=== PATIENT | male | born 1950 | race Caucasian/White ===

== ENCOUNTER 2018-01-16 13:49 | Inpatient (IN) ==
[2018-01-16] MEDS ORDERED: Etomidate Inj 40 MG/20 ML Vial IV.PUSH ONE (13:54)
[2018-01-16] MEDS ORDERED: fentaNYL Citrate Inj 100 MCG/2 ML Ampul ONE ×3 (13:54→16:51)
[2018-01-16] MEDS ORDERED: ceFAZolin 2 GM Premix Inj 2 GM/50 ML PIGGYBACK IV.SIG ONE (13:54)
[2018-01-16 14:18] LABS: Baso % (Auto) 0.3 % (0.0-2.0); Eos # (Auto) 0.1 th/mm3 (0.0-0.4); Eos % (Auto) 0.8 % (0.0-4.0); Hematocrit 41.9 % (39.0-51.0); Hemoglobin 15.4 gm/dL (13.0-17.0); Lymph # (Auto) 3.1 th/mm3 (1.0-4.8); Mean Corpuscular Hemoglobin 32.3 pg (27.0-34.0); Mean Corpuscular Volume 87.9 fL (80.0-100.0); Mean Platelet Volume 8.5 fL (7.0-11.0); Mono # (Auto) 0.7 th/mm3 (0.0-0.9); Mono % (Auto) 5.9 % (0.0-8.0); Neut # (Auto) 7.2 th/mm3 (1.8-7.7); Platelet Count 297 th/mm3 (150-450); Red Blood Count 4.77 mil/mm3 (4.50-5.90); Red Cell Distribution Width 13.2 % (11.6-17.2); White Blood Count 11.1 th/mm3 (4.0-11.0)
[2018-01-16 14:19] LABS: Mean Corpuscular HGB Conc 36.7 % (32.0-36.0)
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
[2018-01-16 14:24] LABS: Activated Partial Thrombo Time 22.5 sec (24.3-30.1); Prothrombin Time 10.4 sec (9.8-11.6)
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
[2018-01-16] MEDS ORDERED: Succinylcholine Inj 200 MG/10 ML Vial ONE (14:34)
[2018-01-16] MEDS ORDERED: TETANUS IMMUNE GLOBULIN IM ONE (14:40)
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
[2018-01-16 14:44] LABS: Platelet Estimate Normal (Normal); Platelet Morphology Normal (Normal); RBC Morphology Normal (Normal)
[2018-01-16] MEDS ORDERED: Propofol 1000 mg/100 ml Inj 1,000 MG/100 ML BOTTLE ONE (14:45)
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
[2018-01-16] MEDS ORDERED: Etomidate Inj 20 MG/10 ML Ampul IV.PUSH ONE (14:51)
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
[2018-01-16] MEDS ORDERED: Bisacodyl 10 MG Supp RECTAL PRN (15:15)
[2018-01-16] MEDS ORDERED: Acetaminophen 325 MG Tablet PO PRN (15:15)
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
[2018-01-16] MEDS ORDERED: Sodium Chloride 0.9% 2 ML Flush PRN IV.FLUSH (16:01)
[2018-01-16] MEDS ORDERED: Sodium Bicarbonate 8.4% Inj 50 MEQ/50 ML Syringe ONE (16:08)
[2018-01-16 16:10] LABS: ABG Base Excess -5.3 mmol/L (-2-2); ABG PCO2 59 mmHg (38-42); ABG PO2 127 mmHg (61-120)
--- NOTE | 2018-01-16 16:44 | P.OP ---
Preoperative Diagnosis: multitrauma,left pneumothorax Postoperative Diagnosis: multitrauma,left pneumothorax Date of procedure: 01/16/18 Procedure: Left chest tube thoracostomy Anesthesia: other (propofol/fentanyl) Surgeon: Patt Herman MD Operation and Findings: Patient's left chest prepped and draped.5 ICR midaxillary line incision was performed carried out through subcutaneous tissue to superior margin of the rib.Pleural space was entered and lung palpated.[address] was inserted and secured to skin with 0-silk.Patient tolerated procedure well.CXR confirms good position.
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
[2018-01-16] MEDS ORDERED: Gelatin Size 100 Topical Foam OTHER ONE (17:00)
--- NOTE | 2018-01-16 17:22 | P.RAD ---
Post Procedure Progress Note - Pre Procedure Diagnosis (1) Trauma - Post Procedure Diagnosis (1) Trauma - Procedure Information Procedure Date: 01/16/18 Supervising Radiologist: Isidoro Garcia MD Anesthesia: General - Plan of Activity Patient to Unit: Critical Care Patient Condition: Critical See PACS Report for procedural detail/treatment. Vascular - Arterial Procedure right Abdominal Procedure: Embolization (embolize with gelfoam two lumbar arteries renal artery normal)
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
[2018-01-16] MEDS: Sod Chloride 0.9% Inj 1,000 ML IV.CONT SCH (17:37)
[2018-01-16] MEDS: Oral Hygiene Kit OROPHARYNG SCH (17:38)
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
[2018-01-16] MEDS: fentaNYL 10 mcg/mL Premix Drip 2,500 MCG/250 ML BAG IV.SIG PRN (18:45)
[2018-01-16] MEDS ORDERED: Propofol Inj 500 MG/50 ML Vial ONE (19:00)
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
[2018-01-16 19:13] LABS: ABG Base Excess -1.8 mmol/L (-2-2); ABG PCO2 53 mmHg (38-42); ABG PO2 100 mmHg (61-120)
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
[2018-01-16 19:46] LABS: Hematocrit 40.2 % (39.0-51.0); Hemoglobin 13.8 gm/dL (13.0-17.0); Mean Corpuscular HGB Conc 34.4 % (32.0-36.0); Mean Corpuscular Hemoglobin 29.9 pg (27.0-34.0); Mean Platelet Volume 8.1 fL (7.0-11.0); Platelet Count 124 th/mm3 (150-450); Red Blood Count 4.61 mil/mm3 (4.50-5.90); Red Cell Distribution Width 15.3 % (11.6-17.2); White Blood Count 10.2 th/mm3 (4.0-11.0)
[2018-01-16 20:03] LABS: INR 1.1 Ratio
[2018-01-16 20:11] LABS: Calcium 6.7 mg/dL (8.5-10.1); Carbon Dioxide 26.5 meq/L (21.0-32.0); Potassium 4.3 meq/L (3.5-5.1)
[2018-01-16] MEDS: Chlorhexidine 0.12% Oral Kit 15 ML UDC OROPHARYNG SCH (20:15)
[2018-01-16] MEDS: Propofol 1000 mg/100 ml Inj 1,000 MG/100 ML BOTTLE IV.CONT PRN ×2 (20:19→20:30)
[2018-01-16 20:35] LABS: Total Protein 5.7 g/dL (6.4-8.2)
[2018-01-16] MEDS ORDERED: Famotidine PF Inj 20 MG/2 ML Vial IV.PUSH SCH (21:00)
[2018-01-16] MEDS ORDERED: Influenza (Quadrivalent) Vaccine 0.5 ML Syringe IM ONE (21:15)
[2018-01-16] MEDS ORDERED: Sodium Phosphate Inj 30 MMOL in Sodium Chlor 0.9% Inj 250 ML IV.SIG PRN (21:46)
[2018-01-16] MEDS ORDERED: Magnesium Sulfate Inj 4 GM in Sodium Chlor 0.9% Inj 92 ML IV.SIG PRN (21:46)
[2018-01-16] MEDS ORDERED: Magnesium Oxide 400 MG Tablet PO PRN (21:46)
[2018-01-16] MEDS ORDERED: Potassium Chlor 40 mEq Premix 40 MEQ/100 ML PIGGYBACK IV.SIG PRN (21:46)
[2018-01-16] MEDS ORDERED: Potassium Chloride 25 MEQ Effervescent Tablet PO PRN (21:46)
[2018-01-16] MEDS ORDERED: Potassium Phosphate Inj 30 MMOL in Sodium Chlor 0.9% Inj 250 ML IV.SIG PRN (21:46)
[2018-01-16] MEDS ORDERED: Potassium Chlor 20 mEq Premix 20 MEQ/100 ML PIGGYBACK IV.SIG PRN ×2 (21:46)
[2018-01-16] MEDS ORDERED: Potassium Phosphate 500 MG Soluble Tablet PO PRN ×2 (21:46)
[2018-01-16] MEDS ORDERED: Magnesium Sulfate Inj 2 GM in Sodium Chlor 0.9% Inj 96 ML IV.SIG PRN (21:46)
[2018-01-16] MEDS: Famotidine PF Inj 20 MG/2 ML Vial IV.PUSH SCH (21:51)
[2018-01-16] MEDS: Senna/Docusate Sodium 8.6/50 MG Tablet PO SCH (21:51)
[2018-01-16] MEDS ORDERED: Calcium Gluconate Inj 1 GM in Sodium Chlor 0.9% Inj 100 ML IV.SIG ONE (22:00)
--- NOTE | 2018-01-16 23:59 | IR ---
EXAM DATE: 01/16/2018 12:00 AM EDT AGE/SEX: 89 years / Male INDICATIONS: Patient presents as emergent trauma in need of lumbar artery embolization. CLINICAL DATA: This is the patient's initial encounter. Patient reports that signs and symptoms have been present for 1 day and indicates a pain score of Nonresponsive. MEDICAL/SURGICAL HISTORY: Unable to obtain Unable to obtain COMPARISON: No prior exams available for comparison. FLUORO TIME (min): 16.5 IMAGE SERIES: 15 ACCESS SITE: Right femoral artery SEDATION TIME (min): 30 CONTRAST (cc): 75cc Visipaque (iodixanol) MEDICATION(S): 100mcg fentanyl (Sublimaze) IV ; ; ; ; DEVICE(S): spinal artery Gelfoam 12-7mm lumbar artery ; spinal artery Gelfoam 12-7mm lumbar artery ; Right commo n femoral artery Angio-Seal 6F ; ; ; ; . . PROCEDURE : 1. Ultrasound-guided puncture of the access site. 2. Conscious sedation with continuous EKG and Oximetry monitoring. 3. Angiography of the abdominal aorta 4. Angiography of the right renal artery 5. Angiography of the right lumbar artery L1 6. Angiography of the right lumbar lumbar artery L2 with Gelfoam embolization 7. Angiography of the right lumbar artery L3 with Gelfoam embolization The risks, benefits and alternatives to the procedure were explained and verbal and written consent w as obtained. The site was prepped in sterile fashion. Full sterile technique was used, including ca p, mask, sterile gloves and gown and a large sterile sheet. Hand hygiene and 2% chlorhexidine and/or betadine/alcohol prep was utilized per protocol for cutaneous antisepsis. Sterile gel and sterile p robe cover were utilized for ultrasound guidance. The skin and subcutaneous tissues were infiltrated with local anesthetic solution. With ultrasound and fluoroscopic guidance the selected artery was punctured and a vascular sheath was placed. An Omni flush catheter was placed, the abdominal aorta and digital angiography was performed in AP pr ojection. This demonstrates questionable abnormality involving a lumbar artery on the right. The cath eter was exchanged for a Cook catheter and angiography of the L2 lumbar artery demonstrates an abnorm al area of pooling. Subsequent embolization was performed using Gelfoam to complete stasis. Following this the right L3 lumbar artery was also catheterized with additional area of pooling identified. Ag ain embolization was performed to complete stasis. The right renal artery was next catheterized and t his demonstrates no abnormality with normal arterial and venous phase. Finally the right L1 lumbar ar zahida was catheterized demonstrating no abnormality. The puncture site was closed with manual pressure and hemostasis was obtained. The patient tolerated the procedure well and there were no complications. Conscious sedation was performed with the prescribed dosages and duration as above in the presence of an independent trained radiology nurse to assist in the monitoring of the patient. EKG and oximetry remained stable throughout the procedure. CONCLUSION: 1. Uncomplicated embolization of lumbar arteries as described above. No solid organ injury is identi fied. Electronically signed by: Isidoro Garcia MD 01/16/2018 11:57 PM EDT
[2018-01-17] MEDS: Propofol 1000 mg/100 ml Inj 1,000 MG/100 ML BOTTLE IV.CONT PRN ×6 (00:15→21:23)
[2018-01-17] MEDS: Oral Hygiene Kit OROPHARYNG SCH ×5 (01:08→23:15)
[2018-01-17] MEDS: Sod Chloride 0.9% Inj 1,000 ML IV.CONT SCH ×5 (01:08→21:23)
--- NOTE | 2018-01-17 03:29 | XR ---
EXAM DATE: 01/17/2018 12:01 AM EDT AGE/SEX: 89 years / Male INDICATIONS: Shortness of breath, possible pulmonary disease. CLINICAL DATA: This is the patient's subsequent encounter. Patient reports that signs and symptoms h ave been present for 2 days and indicates a pain score of Nonresponsive. MEDICAL/SURGICAL HISTORY: Non-responsive. Non-responsive. COMPARISON: [facility], CHEST 1V SINGLE AP, 01/16/2018. . FINDINGS: The cardiac silhouette is enlarged in transverse diameter. Support lines and tubes are in satisfactor y position. There is no evidence of pneumothorax. There is left lower lobe atelectasis versus contusi on. There is subcutaneous emphysema along the left lateral chest wall. CONCLUSION: Left basilar atelectasis versus contusion. There is no evidence of pneumothorax. Electronically signed by: Isidoro Garcia MD 01/17/2018 3:28 AM EDT
[2018-01-17] MEDS ORDERED: Chlorhexidine Gluconate 2% 1 Pack (2 Cloths) TOPICAL PRN (04:00)
[2018-01-17] MEDS: Chlorhexidine Gluconate 2% 1 Pack (2 Cloths) TOPICAL SCH (04:25)
[2018-01-17 04:31] LABS: Baso % (Auto) 0.3 % (0.0-2.0); Eos % (Auto) 0.5 % (0.0-4.0); Hematocrit 35.3 % (39.0-51.0); Hemoglobin 12.4 gm/dL (13.0-17.0); Lymph # (Auto) 1.1 th/mm3 (1.0-4.8); Mean Corpuscular HGB Conc 35.1 % (32.0-36.0); Mean Corpuscular Hemoglobin 30.1 pg (27.0-34.0); Mean Corpuscular Volume 85.7 fL (80.0-100.0); Mean Platelet Volume 8.1 fL (7.0-11.0); Mono # (Auto) 0.9 th/mm3 (0.0-0.9); Mono % (Auto) 13.1 % (0.0-8.0); Neut # (Auto) 4.7 th/mm3 (1.8-7.7); Neut % (Auto) 69.1 % (16.0-70.0); Platelet Count 117 th/mm3 (150-450); Red Blood Count 4.12 mil/mm3 (4.50-5.90); Red Cell Distribution Width 15.5 % (11.6-17.2); White Blood Count 6.7 th/mm3 (4.0-11.0)
[2018-01-17 04:39] LABS: INR 1.1 Ratio
[2018-01-17 05:00] LABS: Calcium 7.6 mg/dL (8.5-10.1); Carbon Dioxide 25.4 meq/L (21.0-32.0); Magnesium 1.3 mg/dL (1.5-2.5); Potassium 3.3 meq/L (3.5-5.1)
[2018-01-17 05:14] LABS: ABG Base Excess 1.1 mmol/L (-2-2); ABG PCO2 25 mmHg (38-42); ABG PO2 153 mmHg (61-120)
[2018-01-17] MEDS: Potassium Chlor 40 mEq Premix 40 MEQ/100 ML PIGGYBACK IV.SIG PRN (05:15)
[2018-01-17] MEDS ORDERED: Sod Chloride 0.9% Inj 1,000 ML IV.SIG SCH (05:17)
--- NOTE | 2018-01-17 06:22 | P.PNOP ---
Subjective Interval history: Pt required resuscitation yesterday after IR procedure, unstable for OR. Stabilized overnight. Plan to OR this morning Physical Exam Vital signs: Vital Signs 01/16/18 14:44 01/16/18 16:00 01/16/18 17:44 Temperature 98.4 F Pulse Rate 106 H Respiratory Rate 16 22 Blood Pressure 121/57 L Pulse Oximetry 100 100 99 01/16/18 17:45 01/16/18 18:00 01/16/18 19:00 Temperature Pulse Rate 118 H 96 H Respiratory Rate 20 20 22 Blood Pressure 134/78 Pulse Oximetry 100 100 100 01/16/18 20:00 01/16/18 20:29 01/16/18 20:44 Temperature 98.9 F 99.6 F 98.9 F Pulse Rate 81 104 H 79 Respiratory Rate 22 22 22 Blood Pressure Pulse Oximetry 100 100 100 01/16/18 21:00 01/16/18 21:44 01/16/18 22:00 Temperature Pulse Rate 83 73 Respiratory Rate 22 22 22 Blood Pressure Pulse Oximetry 100 100 100 01/16/18 23:00 01/16/18 23:46 01/17/18 00:00 Temperature 99 F Pulse Rate 71 78 Respiratory Rate 22 22 22 Blood Pressure Pulse Oximetry 100 100 100 01/17/18 01:00 01/17/18 02:00 01/17/18 03:00 Temperature Pulse Rate 75 73 70 Respiratory Rate 22 22 22 Blood Pressure Pulse Oximetry 100 100 100 01/17/18 04:00 01/17/18 04:13 Temperature 100.3 F H Pulse Rate 68 Respiratory Rate 22 22 Blood Pressure Pulse Oximetry 100 100 Intake & Output 01/16/18 01/16/18 01/17/18 06:59 18:59 06:59 Intake Total 3314 / 3314 Output Total 1175 / 1175 Balance -1175 / -1175 3314 / 3314 Weight 104.6 kg Intake: IV 2560 / 2560 Diprivan 1000 mg/100 ml Inj 1, 100 / 100 000 mg In 100 ml @ 0 mls/hr . ROUTE .STK-MED ONE Rx#:[id number] Diprivan 1000 mg/100 ml Inj 1, 300 / 300 000 mg In 100 ml @ 5 MCG/KG/MIN 3.138 mls/hr IV.CONT TITRATE PRN Rx#:[id number] NS Inj 1,000 ML @ 100 mls/hr IV 1999 / 1999 .CONT .Q10H FOZIA Rx#:[id number] Calcium Gluconate Inj 1 GM In 110 / 110 NS Inj 100 ML @ 110 mls/hr IV. SIG ONCE ONE Rx#:[id number] Ancef 2 GM Premix Inj 2 gm In 50 / 50 50 ml @ 0 mls/hr IV.SIG .STK- MED ONE Rx#:[id number] Other 100 / 100 Plasma Thawed 5 Day Cp2d Unit 50 / 50 [id number] Plasma Thawed 5 Day Cp2d Unit 50 / 50 [id number] Intake (Blood Product) Amt 654 / 654 Plasma Thawed 5 Day Cp2d Unit 353 / 353 [id number] Plasma Thawed 5 Day Cp2d Unit 301 / 301 [id number] Output: Urine Amount (Catheter) 925 / 925 Indwelling Urethral Catheter 925 / 925 Chest Tube Drainage 250 / 250 Left 250 / 250 Other: # Bowel Movements 0 Weight On Admission 104.6 kg - Urinary Catheter Management Indwelling Urethral Catheter Cath placed during this visit: yes Reason for continuing: Hourly intake/output Insertion date: 01/16/18 Results - Labs CBC & Chem 7: 01/17/18 04:15 01/17/18 04:15 Laboratory Results - last 24 hr 01/16/18 01/16/18 01/16/18 13:53 13:53 13:53 WBC 11.1 H RBC 4.77 Hgb 15.4 POC Hgb (Calc) 14.3 Hct 41.9 POC Hct 42.0 MCV 87.9 MCH 32.3 MCHC 36.7 H RDW 13.2 Plt Count 297 MPV 8.5 Prelim Diff (Auto) Slide review pending Neut % (Auto) 65.0 Lymph % (Auto) 28.0 [place] % (Auto) 5.9 Eos % (Auto) 0.8 Baso % (Auto) 0.3 Neut # (Auto) 7.2 Lymph # (Auto) 3.1 [place] # (Auto) 0.7 Eos # (Auto) 0.1 Baso # (Auto) 0.0 WBC Differential . Diff Scan Auto diff confirmed Differential Comment . Platelet Estimate Normal Platelet Morphology Normal RBC Morphology Normal PT 10.4 INR 1.0 APTT 22.5 L Fibrinogen Puncture Site Patient Temperature O2 Saturation ABG pH ABG pCO2 ABG pO2 ABG HCO3 ABG O2 Content ABG Base Excess ABG Methemoglobin Efra Test Hemoglobin Carboxyhemoglobin O2 Delivery Device Vent Setting Inspired O2 Critical Value POC Sodium 140 Sodium POC Potassium 4.6 Potassium POC Chloride 102 Chloride Carbon Dioxide Anion Gap POC BUN 21 BUN Creatinine POC Creatinine 1.2 Estimated GFR POC Glucose 162 H Random Glucose Calcium Prot Corrected Calcium Phosphorus Magnesium Total Protein Nasal Screen MRSA (PCR) Blood Type Antibody Screen MTS Gel Crossmatch Blood Bank Comment Bld Prod Order Comment 01/16/18 01/16/18 01/16/18 14:36 14:36 14:36 WBC RBC Hgb POC Hgb (Calc) Hct POC Hct MCV MCH MCHC RDW Plt Count MPV Prelim Diff (Auto) Neut % (Auto) Lymph % (Auto) [place] % (Auto) Eos % (Auto) Baso % (Auto) Neut # (Auto) Lymph # (Auto) [place] # (Auto) Eos # (Auto) Baso # (Auto) WBC Differential Diff Scan Differential Comment Platelet Estimate Platelet Morphology RBC Morphology PT INR APTT Fibrinogen Puncture Site Patient Temperature O2 Saturation ABG pH ABG pCO2 ABG pO2 ABG HCO3 ABG O2 Content ABG Base Excess ABG Methemoglobin Efra Test Hemoglobin Carboxyhemoglobin O2 Delivery Device Vent Setting Inspired O2 Critical Value POC Sodium Sodium POC Potassium Potassium POC Chloride Chloride Carbon Dioxide Anion Gap POC BUN BUN Creatinine POC Creatinine Estimated GFR POC Glucose Random Glucose Calcium Prot Corrected Calcium Phosphorus Magnesium Total Protein Nasal Screen MRSA (PCR) Blood Type O Positive Antibody Screen Negative MTS Gel Crossmatch See Detail See Detail Blood Bank Comment Bld Prod Order Comment 01/16/18 01/16/18 01/16/18 14:36 16:00 16:11 WBC RBC Hgb POC Hgb (Calc) Hct POC Hct MCV MCH MCHC RDW Plt Count MPV Prelim Diff (Auto) Neut % (Auto) Lymph % (Auto) [place] % (Auto) Eos % (Auto) Baso % (Auto) Neut # (Auto) Lymph # (Auto) [place] # (Auto) Eos # (Auto) Baso # (Auto) WBC Differential Diff Scan Differential Comment Platelet Estimate Platelet Morphology RBC Morphology PT INR APTT Fibrinogen Puncture Site Right radial Patient Temperature 98.6 O2 Saturation 96 ABG pH 7.19 L* ABG pCO2 59 H* ABG pO2 127 H ABG HCO3 22 ABG O2 Content 20.1 H ABG Base Excess -5.3 L ABG Methemoglobin 1.2 Efra Test Present Hemoglobin 14.8 Carboxyhemoglobin 0.8 O2 Delivery Device Ventilator Vent Setting Prvc16/500/1.0/+5 Inspired O2 100 Critical Value Yes POC Sodium Sodium POC Potassium Potassium POC Chloride Chloride Carbon Dioxide Anion Gap POC BUN BUN Creatinine POC Creatinine Estimated GFR POC Glucose Random Glucose Calcium Prot Corrected Calcium Phosphorus Magnesium Total Protein Nasal Screen MRSA (PCR) Mrsa detected Blood Type Antibody Screen MTS Gel Crossmatch See Detail Blood Bank Comment Bld Prod Order Comment 01/16/18 01/16/18 01/16/18 17:07 17:09 17:11 WBC RBC Hgb POC Hgb (Calc) Hct POC Hct MCV MCH MCHC RDW Plt Count MPV Prelim Diff (Auto) Neut % (Auto) Lymph % (Auto) [place] % (Auto) Eos % (Auto) Baso % (Auto) Neut # (Auto) Lymph # (Auto) [place] # (Auto) Eos # (Auto) Baso # (Auto) WBC Differential Diff Scan Differential Comment Platelet Estimate Platelet Morphology RBC Morphology PT INR APTT Fibrinogen Puncture Site Patient Temperature O2 Saturation ABG pH ABG pCO2 ABG pO2 ABG HCO3 ABG O2 Content ABG Base Excess ABG Methemoglobin Efra Test Hemoglobin Carboxyhemoglobin O2 Delivery Device Vent Setting Inspired O2 Critical Value POC Sodium Sodium POC Potassium Potassium POC Chloride Chloride Carbon Dioxide Anion Gap POC BUN BUN Creatinine POC Creatinine Estimated GFR POC Glucose Random Glucose Calcium Prot Corrected Calcium Phosphorus Magnesium Total Protein Nasal Screen MRSA (PCR) Blood Type Antibody Screen MTS Gel Crossmatch Blood Bank Comment Bld Prod Order Comment 01/16/18 01/16/18 01/16/18 18:55 19:30 19:30 WBC 10.2 RBC 4.61 Hgb 13.8 POC Hgb (Calc) Hct 40.2 POC Hct MCV 87.0 MCH 29.9 MCHC 34.4 RDW 15.3 Plt Count 124 L D MPV 8.1 Prelim Diff (Auto) Neut % (Auto) Lymph % (Auto) [place] % (Auto) Eos % (Auto) Baso % (Auto) Neut # (Auto) Lymph # (Auto) [place] # (Auto) Eos # (Auto) Baso # (Auto) WBC Differential Diff Scan Differential Comment Platelet Estimate Platelet Morphology RBC Morphology PT INR APTT Fibrinogen Puncture Site Art line Patient Temperature 98.6 O2 Saturation 95 ABG pH 7.28 L* ABG pCO2 53 H* ABG pO2 100 ABG HCO3 24 ABG O2 Content 18.8 ABG Base Excess -1.8 ABG Methemoglobin 1.4 Efra Test Present Hemoglobin 14.0 Carboxyhemoglobin 1.1 O2 Delivery Device Ventilator Vent Setting Prvc20/600/0.9/+7 Inspired O2 100 Critical Value Yes POC Sodium Sodium 144 POC Potassium Potassium 4.3 POC Chloride Chloride 109 H Carbon Dioxide 26.5 Anion Gap 9 POC BUN BUN 21 H Creatinine 1.29 POC Creatinine Estimated GFR 48 L POC Glucose Random Glucose 173 H Calcium 6.7 L* Prot Corrected Calcium 7.4 L* Phosphorus Magnesium Total Protein 5.7 L Nasal Screen MRSA (PCR) Blood Type Antibody Screen MTS Gel [employer] Blood Bank Comment Bld Prod Order Comment 01/16/18 01/16/18 01/16/18 19:30 19:30 19:31 WBC RBC Hgb POC Hgb (Calc) Hct POC Hct MCV MCH MCHC RDW Plt Count MPV Prelim Diff (Auto) Neut % (Auto) Lymph % (Auto) [place] % (Auto) Eos % (Auto) Baso % (Auto) Neut # (Auto) Lymph # (Auto) [place] # (Auto) Eos # (Auto) Baso # (Auto) WBC Differential Diff Scan Differential Comment Platelet Estimate Platelet Morphology RBC Morphology PT 11.0 INR 1.1 APTT Fibrinogen 246 Puncture Site Patient Temperature O2 Saturation ABG pH ABG pCO2 ABG pO2 ABG HCO3 ABG O2 Content ABG Base Excess ABG Methemoglobin Efra Test Hemoglobin Carboxyhemoglobin O2 Delivery Device Vent Setting Inspired O2 Critical Value POC Sodium Sodium POC Potassium Potassium POC Chloride Chloride Carbon Dioxide Anion Gap POC BUN BUN Creatinine POC Creatinine Estimated GFR POC Glucose Random Glucose Calcium Prot Corrected Calcium Phosphorus Magnesium Total Protein Nasal Screen MRSA (PCR) Blood Type Antibody Screen MTS Gel Crossmatch Blood Bank Comment Bld Prod Order Comment 01/17/18 01/17/18 01/17/18 04:15 04:15 04:15 WBC 6.7 RBC 4.12 L Hgb 12.4 L POC Hgb (Calc) Hct 35.3 L POC Hct MCV 85.7 MCH 30.1 MCHC 35.1 RDW 15.5 Plt Count 117 L MPV 8.1 Prelim Diff (Auto) Neut % (Auto) 69.1 Lymph % (Auto) 17.0 [place] % (Auto) 13.1 H Eos % (Auto) 0.5 Baso % (Auto) 0.3 Neut # (Auto) 4.7 Lymph # (Auto) 1.1 [place] # (Auto) 0.9 Eos # (Auto) 0.0 Baso # (Auto) 0.0 WBC Differential . Diff Scan Differential Comment Auto diff final Platelet Estimate Platelet Morphology RBC Morphology PT 11.0 INR 1.1 APTT Fibrinogen Puncture Site Patient Temperature O2 Saturation ABG pH ABG pCO2 ABG pO2 ABG HCO3 ABG O2 Content ABG Base Excess ABG Methemoglobin Efra Test Hemoglobin Carboxyhemoglobin O2 Delivery Device Vent Setting Inspired O2 Critical Value POC Sodium Sodium 145 POC Potassium Potassium 3.3 L D POC Chloride Chloride 109 H Carbon Dioxide 25.4 Anion Gap 11 POC BUN BUN 23 H Creatinine 1.33 H POC Creatinine Estimated GFR 46 L POC Glucose Random Glucose 146 H Calcium 7.6 L D Prot Corrected Calcium Phosphorus 3.0 Magnesium 1.3 L Total Protein Nasal Screen MRSA (PCR) Blood Type Antibody Screen [employer] Blood Bank Comment Bld Prod Order Comment 01/17/18 04:57 WBC RBC Hgb POC Hgb (Calc) Hct POC Hct MCV MCH MCHC RDW Plt Count MPV Prelim Diff (Auto) Neut % (Auto) Lymph % (Auto) [place] % (Auto) Eos % (Auto) Baso % (Auto) Neut # (Auto) Lymph # (Auto) [place] # (Auto) Eos # (Auto) Baso # (Auto) WBC Differential Diff Scan Differential Comment Platelet Estimate Platelet Morphology RBC Morphology PT INR APTT Fibrinogen Puncture Site Josselin Patient Temperature 98.6 O2 Saturation 97 ABG pH 7.58 H* ABG pCO2 25 L ABG pO2 153 H ABG HCO3 23 ABG O2 Content 16.7 ABG Base Excess 1.1 ABG Methemoglobin 1.5 Efra Test Hemoglobin 12.1 Carboxyhemoglobin 1.3 O2 Delivery Device Vent Vent Setting See comments Inspired O2 60 Critical Value Yes POC Sodium Sodium POC Potassium Potassium POC Chloride Chloride Carbon Dioxide Anion Gap POC BUN BUN Creatinine POC Creatinine Estimated GFR POC Glucose Random Glucose Calcium Prot Corrected Calcium Phosphorus Magnesium Total Protein Nasal Screen MRSA (PCR) Blood Type Antibody Screen MTS Gel Crossmatch Blood Bank Comment Bld Prod Order Comment - Imaging Impressions Abdominal Angiography 01/16/18 00:00 CONCLUSION: 1. Uncomplicated embolization of lumbar arteries as described above. No solid organ injury is identified. Ankle X-Ray 01/16/18 00:00 CONCLUSION: Tibiotalar dislocation with fracture as above. Chest X-Ray 01/16/18 00:00 CONCLUSION: Large bore chest tube in place on the left. There is no significant residual pneumothorax. Moderate subcutaneous emphysema is present Mediastinal contours are prominent. CT scan is pending. Foot X-Ray 01/16/18 00:00 CONCLUSION: Fracture dislocations as above. CT scan may be of benefit. Chest X-Ray 01/16/18 13:51 CONCLUSION: 1. Left-sided rib fractures with subcutaneous emphysema in the left chest wall. No gross pneumothorax. 2. Probable left scapular fracture. Pelvis X-Ray 01/16/18 13:51 CONCLUSION: 1. Negative trauma pelvis. Tibia/Fibula X-Ray 01/16/18 13:59 CONCLUSION: 1. Fracture dislocation of the ankle, as above. Abdomen/Pelvis CT 01/16/18 14:16 CONCLUSION: 1. Small right psoas hematoma with focal region of active hemorrhage. Suspect this is a lumbar artery or lumbar vein source. Overall small size of the psoas hematoma would suggest a venous etiology. 2. Nondisplaced 11th right rib and slightly displaced 12th right rib fractures. 3. Redemonstration of multiple left-sided rib fractures. Cervical Spine CT 01/16/18 14:16 CONCLUSION: 1. No acute fracture or subluxation. 2. Partially imaged left apical pneumothorax and left-sided rib fractures. Please see CT chest report for details. 3. Degenerative spondylosis of the cervical spine, as above. Chest CT 01/16/18 14:16 CONCLUSION: 1. Multiple left-sided rib fractures including at least 2 fractures involving the fourth, fifth, seventh, eighth and ninth ribs. 2. Moderate sized left-sided hydropneumothorax with predominantly pneumothorax component. 3. Mild bilateral pulmonary contusions. 4. Suspected left scapular fracture is not demonstrated on CT. Scapula is intact. Head CT 01/16/18 14:17 CONCLUSION: 1. No acute cranial abnormality. 2. Mild right sphenoid sinus mucosal disease. . Chest X-Ray 01/16/18 18:15 CONCLUSION: 1. Stable ETT and NGT. 2. Stable left chest tube without significant pneumothorax. 3. Progressive pleural-parenchymal opacities in the left lower lung zone with progressive volume loss. Chest X-Ray 01/17/18 00:01 CONCLUSION: Left basilar atelectasis versus contusion. There is no evidence of pneumothorax. Assessment and Plan - Assessment and Plan 68-year-old gentleman with open left ankle fracture and subtalar dislocation Full foot XR obtained overnight. Patient with left 1st MTP jt dislocation, multiple MT neck/head fractures. Plan for OR today for I&D, left ankle and foot open vs closed reduction and application of external fixator. Will likely require secondary surgery. Consent obtained from patient's as he remains intubated and sedated.
[2018-01-17] MEDS ORDERED: Dextrose 50% in Water 50 ML Vial IV.PUSH PRN (06:23)
[2018-01-17] MEDS ORDERED: Phenylephrine/NS 1000 MCG/10ML Syringe IV.PUSH ONE (06:37)
[2018-01-17] MEDS ORDERED: Post-op Orders (for Pharmacy) OTHER STA (08:04)
--- NOTE | 2018-01-17 08:04 | P.BOP ---
Date of procedure: 01/17/18 Procedure: 1. Irrigation and debridement left open talar dislocation (tibiotalar, talonavicular and talocalcaneal) 2. Irrigation and debridement left open first metatarsophalangeal fracture and dislocation 3. Irrigation and debridement left open 2nd metatarsal fracture 4. Open reduction left open talar dislocation 5. Open reduction left open 1st metatarsophalangeal fracture and dislocation 6. Application of external fixator left ankle and hindfoot Implants: [employer] ex-fix Anesthesia: GETA Surgeon: Leni Massey MD Estimated blood loss (mL): 50 Pathology: none sent Condition: stable Disposition: ICU
[2018-01-17] MEDS: fentaNYL 10 mcg/mL Premix Drip 2,500 MCG/250 ML BAG IV.SIG PRN (08:45)
--- NOTE | 2018-01-17 08:49 | XR ---
EXAM DATE: 01/17/2018 12:00 AM EDT AGE/SEX: 89 years / Male INDICATIONS: External fixator placement on left ankle. CLINICAL DATA: This is the patient's subsequent encounter. Patient reports that signs and symptoms h ave been present for 1 day and indicates a pain score of Nonresponsive. MEDICAL/SURGICAL HISTORY: Non-responsive. Non-responsive. [place] [facility] [place]. . FINDINGS: 4 fluoroscopic images demonstrate external fixator placement in the hindfoot. There is redemonstratio n of multiple comminuted distal metatarsal fractures. CONCLUSION: 1. External fixator placement, as above. Electronically signed by: Jorge A Lowery MD 01/17/2018 8:47 AM EDT
--- NOTE | 2018-01-17 08:50 | XR ---
EXAM DATE: 01/17/2018 12:00 AM EDT AGE/SEX: 89 years / Male INDICATIONS: Post splint of left foot and ankle. CLINICAL DATA: This is the patient's subsequent encounter. Patient reports that signs and symptoms h ave been present for 1 day and indicates a pain score of Nonresponsive. MEDICAL/SURGICAL HISTORY: Non-responsive. Non-responsive. COMPARISON: [facility], ANKLE LIMITED LEFT 2V, 01/17/2018. . FINDINGS: Single fluoroscopic image demonstrates a moderately displaced fracture of the proximal first phalanx extending through the articular surface. There are also comminuted fractures of the second and third metatarsals distally. CONCLUSION: 1. Fluoroscopic examination, as above. Electronically signed by: Jorge A Lowery MD 01/17/2018 8:48 AM EDT
[2018-01-17] MEDS: Chlorhexidine 0.12% Oral Kit 15 ML UDC OROPHARYNG SCH ×2 (09:03→20:16)
[2018-01-17] MEDS: Senna/Docusate Sodium 8.6/50 MG Tablet PO SCH ×2 (09:11→20:17)
[2018-01-17] MEDS: Famotidine PF Inj 20 MG/2 ML Vial IV.PUSH SCH ×2 (09:11→20:17)
--- NOTE | 2018-01-17 10:36 | CT ---
EXAM DATE: 01/17/2018 8:28 AM EDT AGE/SEX: 89 years / Male INDICATIONS: Trauma, post reduction. CLINICAL DATA: This is the patient's initial encounter. Patient reports that signs and symptoms have been present for 1 day and indicates a pain score of Nonresponsive. MEDICAL/SURGICAL HISTORY: Diabetes. Hypertension. . post reduction RADIATION DOSE: 7.29 CTDI (mGy) COMPARISON: [facility] – [place], CT ANKLE LEFT W/O CONTRAST, 01/17/2018. . TECHNIQUE: Multiple contiguous axial images were acquired using a multirow detector CT scanner witho ut contrast. Multiplanar reconstruction was performed in the sagittal and coronal planes. Using auto mated exposure control and adjustment of the mA and/or kV according to patient size, radiation dose w as kept as low as reasonably achievable to obtain optimal diagnostic quality images. DICOM format im age data is available electronically for review and comparison. FINDINGS: Bones: There is an oblique fracture extending through the base of the proximal first phalanx to the articular surface. There is minimal medial displacement of the fracture fragment with air noted along the fracture plane. Comminuted fracture of the first, second, third, and fourth distal metatarsals w ith air noted in the first metatarsal fracture. There is a severely comminuted fracture of the anteri or and medial calcaneus involving the anterior and middle facets. There is noted throughout the calca keely fracture fragments. There is an external fixation screw coursing through the base of the calcane us. There is subtle cortical irregularity involving the cuboid and medial inferior talus. Joints: There is widening of the talonavicular joint with mild cephalad dislocation of the distal ta amrik with respect to the navicular. Air is noted in the joint space. There is also widening of the med ial talocalcaneal joint space with fracture fragments extending along the medial articular surface. Soft Tissues: Diffuse extensive soft tissue edema and subcutaneous air. Other: No additional foreign bodies. CONCLUSION: 1. Severely comminuted complex fracture of the calcaneus with comminuted fractures of the first thro ugh fourth distal metatarsals and base of the proximal first phalanx. 2. Subtle fractures involving the cuboid and medial inferior talus. 3. Widening of the talonavicular and medial talocalcaneal joints. 4. Calcaneal external fixator in place. Electronically signed by: Jorge A Lowery MD 01/17/2018 10:35 AM EDT
--- NOTE | 2018-01-17 10:44 | CT ---
EXAM DATE: 01/17/2018 8:42 AM EDT AGE/SEX: 89 years / Male INDICATIONS: Trauma, post reduction. CLINICAL DATA: This is the patient's initial encounter. Patient reports that signs and symptoms have been present for 1 day and indicates a pain score of Nonresponsive. MEDICAL/SURGICAL HISTORY: Diabetes. Hypertension. . post reduction left ankle and foot RADIATION DOSE: 7.29 CTDI (mGy) COMPARISON: [facility] – [place], CT FOOT LEFT W/O CONTRAST, 01/17/2018. . TECHNIQUE: Multiple contiguous axial images were acquired using a multirow detector CT scanner witho ut contrast. Multiplanar reconstruction was performed in the sagittal and coronal planes. Using aut omated exposure control and adjustment of the mA and/or kV according to patient size, radiation dose was kept as low as reasonably achievable to obtain optimal diagnostic quality images. DICOM format i mage data is available electronically for review and comparison. FINDINGS: Bones: Comminuted fracture of the distal fibula with fracture fragments noted anteriorly. There is a severely comminuted fracture of the anterior and medial calcaneus involving the anterior and middle facets. Air is noted throughout the calcaneal fracture fragments. Joints: There is slight widening of the tibiotalar joint space. There is also subtle widening of the very distal tibiofibular joint space. Soft Tissues: Diffuse extensive soft tissue edema and subcutaneous air. Other: There is an external fixator coursing through the posterior calcaneus. CONCLUSION: 1. Comminuted fracture of the distal fibula with subtle widening of the tibiotalar and tibiofibular distances. 2. Severely comminuted complex fracture of the calcaneus with comminuted fractures of the first thro ugh fourth distal metatarsals and base of the proximal first phalanx. Please see CT for report for ad ditional details. 3. Calcaneal external fixator in place. CONCLUSION: 1. Electronically signed by: Jorge A Lowery MD 01/17/2018 10:43 AM EDT
[2018-01-17 11:58] LABS: ABG Base Excess 1.7 mmol/L (-2-2); ABG PCO2 33 mmHg (38-42); ABG PO2 72 mmHg (61-120)
--- NOTE | 2018-01-17 14:02 | P.PNCC ---
Subjective Brief History: 68 involved in an [facility] [place]. Patient was overall stable to transfer complaining of pain left lower extremity at the ankle area. On arrival he is in moderate distress he is hemodynamically stable his saturations are in the 90s range on supplemental oxygen he is however diaphoretic with a mild tachypnea he has equal breath sounds bilateral his GCS is 15 he complains of pain at his left lower extremity he has multiple road rashes equal pupils. Under moderate sedation patient's left ankle was attempted to reduce, 2 g of Ancef was given as IV antibiotics patient was brought to the CAT scan. Preliminary initial findings 1. Multiple left-sided rib fractures second to ninth rib left 2. Moderate sized left-sided hydropneumothorax with predominantly pneumothorax component. 3. Mild bilateral pulmonary contusions. 4. Open left ankle fracture Patient was resuscitated according to trauma protocols left chest tube was placed and patient remains on the ventilator Underwent washout and ex-fix of the left ankle by orthopedics 24 Hour Review/Hospital Course: 01/17/2018 Neurologically patient is intact he remains on the ventilator intubated and ventilated sedated Hemodynamically patient is stable Bilateral breath sounds on assist control mode ventilation with improving PO2 FiO2 gradient and decreasing FiO2 requirements Patient has severe lung and chest wall injury with a flail segment of fourth fifth and sixth rib and therefore will require prolonged ventilation and recovery In additions patient's age is aggravating circumstances and the situation Abdomen is soft active bowel sounds and patient will be started on enteral feeds Renal function well-preserved In summary this patient's main problem is pulmonary function and underlying pulmonary contusion and damage to the lung aggravated by severe chest wall contusion will lead to prolonged ventilatory support Objective Vital Signs / I&O: Vital Signs 01/16/18 14:44 01/16/18 16:00 01/16/18 17:44 Temperature 98.4 F Pulse Rate 106 H Respiratory Rate 16 22 Blood Pressure 121/57 L Pulse Oximetry 100 100 99 01/16/18 17:45 01/16/18 18:00 01/16/18 19:00 Temperature Pulse Rate 118 H 96 H Respiratory Rate 20 20 22 Blood Pressure 134/78 Pulse Oximetry 100 100 100 01/16/18 20:00 01/16/18 20:29 01/16/18 20:44 Temperature 98.9 F 99.6 F 98.9 F Pulse Rate 81 104 H 79 Respiratory Rate 22 22 22 Blood Pressure Pulse Oximetry 100 100 100 01/16/18 21:00 01/16/18 21:44 01/16/18 22:00 Temperature Pulse Rate 83 73 Respiratory Rate 22 22 22 Blood Pressure Pulse Oximetry 100 100 100 01/16/18 23:00 01/16/18 23:46 01/17/18 00:00 Temperature 99 F Pulse Rate 71 78 Respiratory Rate 22 22 22 Blood Pressure Pulse Oximetry 100 100 100 01/17/18 01:00 01/17/18 02:00 01/17/18 03:00 Temperature Pulse Rate 75 73 70 Respiratory Rate 22 22 22 Blood Pressure Pulse Oximetry 100 100 100 01/17/18 04:00 01/17/18 04:13 01/17/18 05:00 Temperature 100.3 F H Pulse Rate 68 70 Respiratory Rate 22 22 22 Blood Pressure Pulse Oximetry 100 100 100 01/17/18 06:00 01/17/18 08:15 01/17/18 08:31 Temperature 98 F Pulse Rate 62 68 Respiratory Rate 18 18 18 Blood Pressure 101/54 L Pulse Oximetry 100 100 100 01/17/18 09:00 01/17/18 09:11 01/17/18 10:00 Temperature Pulse Rate 64 64 78 Respiratory Rate 18 19 18 Blood Pressure 135/71 170/60 H Pulse Oximetry 100 98 01/17/18 10:12 01/17/18 11:00 01/17/18 11:21 Temperature Pulse Rate 86 Respiratory Rate 18 18 Blood Pressure Pulse Oximetry 100 100 98 01/17/18 12:00 Temperature 98 F Pulse Rate 68 Respiratory Rate 18 Blood Pressure Pulse Oximetry 99 Intake & Output 01/16/18 01/17/18 01/17/18 18:59 06:59 18:59 Intake Total 4314 / 4314 1650 / 1650 Output Total 1175 / 1175 1250 / 1250 10 Balance -1175 / -1175 3064 / 3064 1640 / 1640 Weight 104.6 kg 109.9 kg Intake: IV 3560 / 3560 650 / 650 Diprivan 1000 mg/100 ml Inj 1, 100 / 100 000 mg In 100 ml @ 0 mls/hr . [facility] Rx#:[id number] Diprivan 1000 mg/100 ml Inj 1, 300 / 300 200 / 200 000 mg In 100 ml @ 5 MCG/KG/MIN 3.138 mls/hr IV.CONT TITRATE PRN Rx#:[id number] NS Inj 1,000 ML @ 100 mls/hr IV 3000 / 3000 .CONT .Q10H FOZIA Rx#:[id number] Calcium Gluconate Inj 1 GM In 110 / 110 NS Inj 100 ML @ 110 mls/hr IV. SIG ONCE ONE Rx#:[id number] Magnesium Sulfate Inj 2 GM In 100 / 100 NS Inj 96 ML @ 50 mls/hr IV.SIG UNSCH PRN Rx#:[id number] KCl 40 mEq Premix Inj 40 meq In 100 / 100 100 ml @ 25 mls/hr IV.SIG UNSCH PRN Rx#:[id number] Ancef 2 GM Premix Inj 2 gm In 50 / 50 50 ml @ 0 mls/hr IV.SIG .STK- [facility] Rx#:[id number] fentaNYL 10 mcg/mL Premix Drip 250 / 250 2,500 mcg In 250 ml @ 50 MCG/HR 5 mls/hr IV.SIG TITRATE PRN Rx #:[id number] Anesthesia Amount 1000 / 1000 Other 100 / 100 Plasma Thawed 5 Day Cp2d Unit 50 / 50 [id number] Plasma Thawed 5 Day Cp2d Unit 50 / 50 [id number] Intake (Blood Product) Amt 654 / 654 Plasma Thawed 5 Day Cp2d Unit 353 / 353 [id number] Plasma Thawed 5 Day Cp2d Unit 301 / 301 [id number] Output: Estimated Blood Loss 10 / 10 Urine Amount (Catheter) 925 / 925 1000 / 1000 Indwelling Urethral Catheter 925 / 925 1000 / 1000 Gastric Drainage 150 / 150 Orogastric Tube 150 / 150 Chest Tube Drainage 250 / 250 100 / 100 Left 250 / 250 100 / 100 Other: # Bowel Movements 0 Weight On Admission 104.6 kg Result Diagrams: 01/17/18 04:15 01/17/18 04:15 Imaging: Impressions Abdominal Angiography 01/16/18 00:00 CONCLUSION: 1. Uncomplicated embolization of lumbar arteries as described above. No solid organ injury is identified. Ankle X-Ray 01/16/18 00:00 CONCLUSION: Tibiotalar dislocation with fracture as above. Chest X-Ray 01/16/18 00:00 CONCLUSION: Large bore chest tube in place on the left. There is no significant residual pneumothorax. Moderate subcutaneous emphysema is present Mediastinal contours are prominent. CT scan is pending. Foot X-Ray 01/16/18 00:00 CONCLUSION: Fracture dislocations as above. CT scan may be of benefit. Chest X-Ray 01/16/18 13:51 CONCLUSION: 1. Left-sided rib fractures with subcutaneous emphysema in the left chest wall. No gross pneumothorax. 2. Probable left scapular fracture. Pelvis X-Ray 01/16/18 13:51 CONCLUSION: 1. Negative trauma pelvis. Tibia/Fibula X-Ray 01/16/18 13:59 CONCLUSION: 1. Fracture dislocation of the ankle, as above. Abdomen/Pelvis CT 01/16/18 14:16 CONCLUSION: 1. Small right psoas hematoma with focal region of active hemorrhage. Suspect this is a lumbar artery or lumbar vein source. Overall small size of the psoas hematoma would suggest a venous etiology. 2. Nondisplaced 11th right rib and slightly displaced 12th right rib fractures. 3. Redemonstration of multiple left-sided rib fractures. Cervical Spine CT 01/16/18 14:16 CONCLUSION: 1. No acute fracture or subluxation. 2. Partially imaged left apical pneumothorax and left-sided rib fractures. Please see CT chest report for details. 3. Degenerative spondylosis of the cervical spine, as above. Chest CT 01/16/18 14:16 CONCLUSION: 1. Multiple left-sided rib fractures including at least 2 fractures involving the fourth, fifth, seventh, eighth and ninth ribs. 2. Moderate sized left-sided hydropneumothorax with predominantly pneumothorax component. 3. Mild bilateral pulmonary contusions. 4. Suspected left scapular fracture is not demonstrated on CT. Scapula is intact. Head CT 01/16/18 14:17 CONCLUSION: 1. No acute cranial abnormality. 2. Mild right sphenoid sinus mucosal disease. . Chest X-Ray 01/16/18 18:15 CONCLUSION: 1. Stable ETT and NGT. 2. Stable left chest tube without significant pneumothorax. 3. Progressive pleural-parenchymal opacities in the left lower lung zone with progressive volume loss. Ankle CT 01/17/18 00:00 CONCLUSION: 1. Comminuted fracture of the distal fibula with subtle widening of the tibiotalar and tibiofibular distances. 2. Severely comminuted complex fracture of the calcaneus with comminuted fractures of the first through fourth distal metatarsals and base of the proximal first phalanx. Please see CT for report for additional details. 3. Calcaneal external fixator in place. CONCLUSION: 1. Ankle X-Ray 01/17/18 00:00 CONCLUSION: 1. External fixator placement, as above. Foot CT 01/17/18 00:00 CONCLUSION: 1. Severely comminuted complex fracture of the calcaneus with comminuted fractures of the first through fourth distal metatarsals and base of the proximal first phalanx. 2. Subtle fractures involving the cuboid and medial inferior talus. 3. Widening of the talonavicular and medial talocalcaneal joints. 4. Calcaneal external fixator in place. Foot X-Ray 01/17/18 00:00 CONCLUSION: 1. Fluoroscopic examination, as above. Chest X-Ray 01/17/18 00:01 CONCLUSION: Left basilar atelectasis versus contusion. There is no evidence of pneumothorax. Disinhibition Score: 14.00 Aggression Score: 14.00 Lability Score: 14.00 Agitated Behavior Total Score: 14 - Exam PROGRAM TRAINER: Neurologically patient is intact he remains on the ventilator intubated and ventilated sedated Hemodynamic/Cardiac: Hemodynamically patient is stable Pulmonary/Respiratory: Bilateral breath sounds on assist control mode ventilation with improving PO2 FiO2 gradient and decreasing FiO2 requirements Patient has severe lung and chest wall injury with a flail segment of fourth fifth and sixth rib and therefore will require prolonged ventilation and recovery In additions patient's age is aggravating circumstances and the situation In summary this patient's main problem is pulmonary function and underlying pulmonary contusion and damage to the lung aggravated by severe chest wall contusion will lead to prolonged ventilatory support Abdomen/GI Nutrition: Abdomen is soft active bowel sounds and patient will be started on enteral feeds Renal/I&O: Renal function well-preserved Assessment and Plan Attestation: Critical care time 36 minutes
--- NOTE | 2018-01-17 16:00 | ECG ---
Date Performed: 01/17/2018 Time Performed: 05:51:02 PTAGE: 89 years EKG: Sinus rhythm . Prolonged QT interval Possible inferior infarct - age undetermined Septal T wave changes are nonspe cific Cannot Rule out ischemia Abnormal ECG NO PREVIOUS TRACING Clinical correlation is recommended DOCTOR: Zak Peter Interpretating Date/Time 01/17/2018 15:58:22
[2018-01-17] MEDS ORDERED: niCARdipine Inj 25 MG in Sodium Chlor 0.9% Inj 240 ML IV.CONT PRN (19:41)
[2018-01-18] MEDS: Propofol 1000 mg/100 ml Inj 1,000 MG/100 ML BOTTLE IV.CONT PRN ×5 (01:37→20:41)
[2018-01-18] MEDS: Sod Chloride 0.9% Inj 1,000 ML IV.CONT SCH ×2 (03:35→20:18)
[2018-01-18] MEDS: Chlorhexidine Gluconate 2% 1 Pack (2 Cloths) TOPICAL SCH (03:35)
[2018-01-18] MEDS: Oral Hygiene Kit OROPHARYNG SCH ×3 (03:35→16:04)
[2018-01-18 04:22] LABS: Baso % (Auto) 0.2 % (0.0-2.0); Eos # (Auto) 0.1 th/mm3 (0.0-0.4); Eos % (Auto) 0.7 % (0.0-4.0); Hemoglobin 11.6 gm/dL (13.0-17.0); Lymph # (Auto) 0.9 th/mm3 (1.0-4.8); Lymph % (Auto) 10.2 % (9.0-44.0); Mean Corpuscular HGB Conc 33.9 % (32.0-36.0); Mean Corpuscular Hemoglobin 29.8 pg (27.0-34.0); Mean Corpuscular Volume 87.8 fL (80.0-100.0); Mean Platelet Volume 8.5 fL (7.0-11.0); Mono # (Auto) 0.7 th/mm3 (0.0-0.9); Mono % (Auto) 7.7 % (0.0-8.0); Neut # (Auto) 7.4 th/mm3 (1.8-7.7); Neut % (Auto) 81.2 % (16.0-70.0); Platelet Count 89 th/mm3 (150-450); Red Blood Count 3.88 mil/mm3 (4.50-5.90); Red Cell Distribution Width 15.3 % (11.6-17.2); White Blood Count 9.1 th/mm3 (4.0-11.0)
[2018-01-18 04:48] LABS: Calcium 6.7 mg/dL (8.5-10.1); Carbon Dioxide 27.8 meq/L (21.0-32.0); Potassium 3.7 meq/L (3.5-5.1)
[2018-01-18 05:16] LABS: Total Protein 5.6 g/dL (6.4-8.2)
--- NOTE | 2018-01-18 05:59 | XR ---
EXAM DATE: 01/18/2018 12:00 AM EDT AGE/SEX: 68 years / Male INDICATIONS: Evaluate for pneumothorax. CLINICAL DATA: This is the patient's subsequent encounter. Patient reports that signs and symptoms h ave been present for 2 days and indicates a pain score of Nonresponsive. MEDICAL/SURGICAL HISTORY: Hypertension. Diabetes mellitus type II. Chest tube, left. [place] [facility] [place]. . FINDINGS: The cardiac silhouette is enlarged in transverse diameter. A left chest tube is in place. There is no evidence of pneumothorax. There is subcutaneous emphysema along the left lateral chest wall. Support lines and tubes are in satisfactory position. Moderate size bilateral pleural effusions are identifi ed. There is bilateral lower lobe atelectasis versus pneumonia. CONCLUSION: There is no evidence of pneumothorax. Bilateral lower lobe atelectasis versus pneumonia. The findings have worsened when compared with the prior examination. Electronically signed by: Isidoro Garcia MD 01/18/2018 5:57 AM EDT
[2018-01-18 06:04] LABS: ABG Base Excess 0.2 mmol/L (-2-2); ABG PCO2 35 mmHg (38-42); ABG PO2 94 mmHg (61-120)
--- NOTE | 2018-01-18 07:14 | P.PNOP ---
Subjective Interval history: s/p exfix with I&D left ankle by Dr Massey intubated/sedated Physical Exam Vital signs: Vital Signs 01/17/18 08:00 01/17/18 08:15 01/17/18 08:20 Temperature 98 F Pulse Rate 72 68 70 Respiratory Rate 18 18 Blood Pressure 101/54 L 101/54 L Pulse Oximetry 100 100 100 01/17/18 08:31 01/17/18 08:52 01/17/18 09:00 Temperature Pulse Rate 70 65 Respiratory Rate 18 18 18 Blood Pressure 148/70 H 135/71 Pulse Oximetry 100 99 100 01/17/18 09:02 01/17/18 09:11 01/17/18 09:20 Temperature Pulse Rate 65 64 74 Respiratory Rate 18 19 18 Blood Pressure 135/71 182/88 H Pulse Oximetry 100 100 01/17/18 09:24 01/17/18 09:39 01/17/18 10:00 Temperature Pulse Rate 73 70 78 Respiratory Rate 18 18 16 Blood Pressure 160/72 H 143/72 H 170/60 H Pulse Oximetry 100 100 100 01/17/18 10:12 01/17/18 11:00 01/17/18 11:21 Temperature Pulse Rate 87 Respiratory Rate 18 18 Blood Pressure Pulse Oximetry 100 98 98 01/17/18 12:00 01/17/18 13:00 01/17/18 14:00 Temperature 98 F Pulse Rate 68 80 116 H Respiratory Rate 18 14 14 Blood Pressure Pulse Oximetry 99 100 95 01/17/18 15:00 01/17/18 15:14 01/17/18 15:23 Temperature Pulse Rate 119 H 122 H 123 H Respiratory Rate 15 14 14 Blood Pressure 128/69 Pulse Oximetry 92 L 91 L 92 L 01/17/18 16:00 01/17/18 17:00 01/17/18 18:00 Temperature 104.0 F H 103.1 F H 101.1 F H Pulse Rate 124 H 110 H 93 H Respiratory Rate 14 14 14 Blood Pressure Pulse Oximetry 96 99 100 01/17/18 19:00 01/17/18 20:00 01/17/18 20:46 Temperature 100.2 F H 99.5 F Pulse Rate 85 83 Respiratory Rate 14 14 14 Blood Pressure Pulse Oximetry 99 100 100 01/17/18 20:49 01/17/18 21:00 01/17/18 22:00 Temperature 99.0 F 98.8 F Pulse Rate 80 80 77 Respiratory Rate 14 14 17 Blood Pressure Pulse Oximetry 100 100 01/17/18 22:38 01/17/18 22:47 01/17/18 23:00 Temperature 98.6 F 98.6 F 98.6 F Pulse Rate 78 83 87 Respiratory Rate 14 14 14 Blood Pressure 108/59 L 122/61 Pulse Oximetry 100 99 100 01/17/18 23:02 01/18/18 00:00 01/18/18 00:25 Temperature 98.6 F 98.4 F Pulse Rate 84 76 Respiratory Rate 14 14 15 Blood Pressure 124/63 108/61 Pulse Oximetry 97 100 100 01/18/18 01:00 01/18/18 02:00 01/18/18 02:51 Temperature 98.2 F 98.2 F 98.4 F Pulse Rate 73 73 74 Respiratory Rate 14 14 14 Blood Pressure 105/58 L 98/57 L 99/57 L Pulse Oximetry 100 100 99 01/18/18 03:00 01/18/18 03:44 01/18/18 04:00 Temperature 98.2 F 98.4 F 98.6 F Pulse Rate 73 76 87 Respiratory Rate 14 14 14 Blood Pressure 97/56 L 122/69 115/64 Pulse Oximetry 98 97 95 01/18/18 05:00 01/18/18 05:20 01/18/18 05:23 Temperature 98.6 F Pulse Rate 71 70 Respiratory Rate 14 14 14 Blood Pressure 103/64 Pulse Oximetry 97 01/18/18 06:00 Temperature 98.4 F Pulse Rate 71 Respiratory Rate 14 Blood Pressure 104/61 Pulse Oximetry 100 Intake & Output 01/17/18 01/18/18 01/18/18 18:59 06:59 18:59 Intake Total 2390 / 2390 831 / 831 100 / 100 Output Total 1335 / 1335 780 / 780 Balance 1055 / 1055 51 / 51 100 / 100 Weight 114.7 kg Intake: IV 850 / 850 831 / 831 100 / 100 Diprivan 1000 mg/100 ml Inj 1, 300 / 300 300 / 300 000 mg In 100 ml @ 5 MCG/KG/MIN 3.138 mls/hr IV.CONT TITRATE PRN Rx#:[id number] Ofirmev Inj 1,000 mg In 100 ml 100 / 100 @ 400 mls/hr IV.SIG Q6H PRN Rx# :[id number] Magnesium Sulfate Inj 2 GM In 100 / 100 NS Inj 96 ML @ 50 mls/hr IV.SIG UNSCH PRN Rx#:[id number] Levophed-Dextrose 4 mg/250 ml 250 / 250 Drip 4 mg In 250 ml @ 2 MCG/MIN 7.5 mls/hr IV.SIG TITRATE PRN Rx#:[id number] KCl 40 mEq Premix Inj 40 meq In 100 / 100 100 ml @ 25 mls/hr IV.SIG UNSCH PRN Rx#:[id number] Ancef Inj 1,000 MG In NS Inj 100 / 100 100 / 100 100 / 100 100 ML @ 200 mls/hr IV.SIG Q8H FOZIA Rx#:[id number] fentaNYL 10 mcg/mL Premix Drip 250 / 250 81 / 81 2,500 mcg In 250 ml @ 50 MCG/HR 5 mls/hr IV.SIG TITRATE PRN Rx #:[id number] Anesthesia Amount 1000 / 1000 Other 540 / 540 Output: Estimated Blood Loss 10 / 10 Urine Amount (Catheter) 1325 / 1325 700 / 700 Indwelling Urethral Catheter 1325 / 1325 700 / 700 Chest Tube Drainage 80 / 80 Left 80 / 80 Other: # Bowel Movements 0 Narrative: LLE: +short leg splint. +exfix - Urinary Catheter Management Indwelling Urethral Catheter Cath placed during this visit: yes Reason for continuing: Hourly intake/output Insertion date: 01/16/18 Results - Labs CBC & Chem 7: 01/18/18 04:00 01/18/18 04:00 Laboratory Results - last 24 hr 01/16/18 01/16/18 01/16/18 14:36 14:36 14:36 WBC RBC Hgb Hct MCV MCH MCHC RDW Plt Count MPV Prelim Diff (Auto) Neut % (Auto) Lymph % (Auto) [place] % (Auto) Eos % (Auto) Baso % (Auto) Neut # (Auto) Lymph # (Auto) [place] # (Auto) Eos # (Auto) Baso # (Auto) Differential Comment Puncture Site Patient Temperature O2 Saturation ABG pH ABG pCO2 ABG pO2 ABG HCO3 ABG O2 Content ABG Base Excess ABG Methemoglobin Hemoglobin Carboxyhemoglobin O2 Delivery Device Vent Setting Inspired O2 Critical Value Sodium Potassium Chloride Carbon Dioxide Anion Gap BUN Creatinine Estimated GFR POC Glucose Random Glucose Calcium Prot Corrected Calcium Total Protein MTS Gel Crossmatch See Detail See Detail See Detail Blood Bank Comment Bld Prod Order Comment 01/16/18 01/16/18 01/16/18 17:07 17:09 17:11 WBC RBC Hgb Hct MCV MCH MCHC RDW Plt Count MPV Prelim Diff (Auto) Neut % (Auto) Lymph % (Auto) [place] % (Auto) Eos % (Auto) Baso % (Auto) Neut # (Auto) Lymph # (Auto) [place] # (Auto) Eos # (Auto) Baso # (Auto) Differential Comment Puncture Site Patient Temperature O2 Saturation ABG pH ABG pCO2 ABG pO2 ABG HCO3 ABG O2 Content ABG Base Excess ABG Methemoglobin Hemoglobin Carboxyhemoglobin O2 Delivery Device Vent Setting Inspired O2 Critical Value Sodium Potassium Chloride Carbon Dioxide Anion Gap BUN Creatinine Estimated GFR POC Glucose Random Glucose Calcium Prot Corrected Calcium Total Protein MTS Gel Crossmatch Blood Bank Comment Bld Prod Order Comment 01/17/18 01/17/18 01/17/18 11:50 18:54 20:54 WBC RBC Hgb Hct MCV MCH MCHC RDW Plt Count MPV Prelim Diff (Auto) Neut % (Auto) Lymph % (Auto) [place] % (Auto) Eos % (Auto) Baso % (Auto) Neut # (Auto) Lymph # (Auto) [place] # (Auto) Eos # (Auto) Baso # (Auto) Differential Comment Puncture Site Art line Patient Temperature 98.6 O2 Saturation 93 ABG pH 7.49 H ABG pCO2 33 L ABG pO2 72 ABG HCO3 25 ABG O2 Content 15.2 ABG Base Excess 1.7 ABG Methemoglobin 1.4 Hemoglobin 11.6 L Carboxyhemoglobin 1.4 O2 Delivery Device Ventilator Vent Setting Prvc/ac Inspired O2 45 Critical Value No Sodium Potassium Chloride Carbon Dioxide Anion Gap BUN Creatinine Estimated GFR POC Glucose 110 125 H Random Glucose Calcium Prot Corrected Calcium Total Protein MTS Gel Crossmatch Blood Bank Comment Bld Prod Order Comment 01/18/18 01/18/18 01/18/18 04:00 04:00 05:55 WBC 9.1 RBC 3.88 L Hgb 11.6 L Hct 34.0 L MCV 87.8 MCH 29.8 MCHC 33.9 RDW 15.3 Plt Count 89 L MPV 8.5 Prelim Diff (Auto) Slide review pending Neut % (Auto) 81.2 H Lymph % (Auto) 10.2 Morrill % (Auto) 7.7 Eos % (Auto) 0.7 Baso % (Auto) 0.2 Neut # (Auto) 7.4 Lymph # (Auto) 0.9 L [place]rill # (Auto) 0.7 Eos # (Auto) 0.1 Baso # (Auto) 0.0 Differential Comment . Puncture Site Art line Patient Temperature 98.6 O2 Saturation 96 ABG pH 7.45 H ABG pCO2 35 L ABG pO2 94 ABG HCO3 24 ABG O2 Content 15.0 ABG Base Excess 0.2 ABG Methemoglobin 1.2 Hemoglobin 11.1 L Carboxyhemoglobin 1.4 O2 Delivery Device Ventilator Vent Setting Prvc/ac 14 vt 700 Inspired O2 40 Critical Value No Sodium 146 H Potassium 3.7 Chloride 110 H Carbon Dioxide 27.8 Anion Gap 8 BUN 18 Creatinine 1.17 Estimated GFR 62 L POC Glucose Random Glucose 166 H Calcium 6.7 L* D Prot Corrected Calcium 7.4 L* Total Protein 5.6 L MTS Gel Crossmatch Blood Bank Comment Bld Prod Order Comment - Imaging Impressions Ankle CT 01/17/18 00:00 CONCLUSION: 1. Comminuted fracture of the distal fibula with subtle widening of the tibiotalar and tibiofibular distances. 2. Severely comminuted complex fracture of the calcaneus with comminuted fractures of the first through fourth distal metatarsals and base of the proximal first phalanx. Please see CT for report for additional details. 3. Calcaneal external fixator in place. CONCLUSION: 1. Ankle X-Ray 01/17/18 00:00 CONCLUSION: 1. External fixator placement, as above. Foot CT 01/17/18 00:00 CONCLUSION: 1. Severely comminuted complex fracture of the calcaneus with comminuted fractures of the first through fourth distal metatarsals and base of the proximal first phalanx. 2. Subtle fractures involving the cuboid and medial inferior talus. 3. Widening of the talonavicular and medial talocalcaneal joints. 4. Calcaneal external fixator in place. Foot X-Ray 01/17/18 00:00 CONCLUSION: 1. Fluoroscopic examination, as above. Chest X-Ray 01/18/18 00:00 CONCLUSION: There is no evidence of pneumothorax. Bilateral lower lobe atelectasis versus pneumonia. The findings have worsened when compared with the prior examination. Assessment and Plan - Assessment and Plan 1) Left Ankle Fxs with Subtalar Dislocation 2) Left Metatarsal Fxs -npo after MN -consents -possible surgery tomorrow with Marcela
[2018-01-18] MEDS: Chlorhexidine 0.12% Oral Kit 15 ML UDC OROPHARYNG SCH ×2 (08:00→20:19)
[2018-01-18 08:28] LABS: Lymphocytes 9 % (9-44); Monocytes 1 % (0-8); Platelet Morphology Normal (Normal); RBC Morphology Normal (Normal)
[2018-01-18] MEDS: fentaNYL 10 mcg/mL Premix Drip 2,500 MCG/250 ML BAG IV.SIG PRN (10:42)
[2018-01-18] MEDS: Famotidine PF Inj 20 MG/2 ML Vial IV.PUSH SCH ×2 (10:44→20:26)
[2018-01-18] MEDS: Senna/Docusate Sodium 8.6/50 MG Tablet PO SCH ×2 (10:44→20:24)
[2018-01-18] MEDS: Mupirocin 2% Nasal Oint Topical Syringe EACH NARE SCH ×2 (12:19→20:19)
[2018-01-18] MEDS: Enoxaparin Inj 30 MG/0.3 ML Syringe SQ SCH ×2 (12:19→20:25)
--- NOTE | 2018-01-18 17:18 | P.PNCC ---
Subjective Brief History: 68 [place] [facility] [place] was overall stable to transfer complaining of pain left lower extremity at the ankle area. On arrival he is in moderate distress he is hemodynamically stable his saturations are in the 90s range on supplemental oxygen he is however diaphoretic with a mild tachypnea he has equal breath sounds bilateral his GCS is 15 he complains of pain at his left lower extremity he has multiple road rashes equal pupils. Under moderate sedation patient's left ankle was attempted to reduce, 2 g of Ancef was given as IV antibiotics patient was brought to the CAT scan. Preliminary initial findings 1. Multiple left-sided rib fractures second to ninth rib left 2. Moderate sized left-sided hydropneumothorax with predominantly pneumothorax component. 3. Mild bilateral pulmonary contusions. 4. Open left ankle fracture Patient was resuscitated according to trauma protocols left chest tube was placed and patient remains on the ventilator Underwent washout and ex-fix of the left ankle by orthopedics 24 Hour Review/Hospital Course: 01/17/2018 Neurologically patient is intact he remains on the ventilator intubated and ventilated sedated Hemodynamically patient is stable Bilateral breath sounds on assist control mode ventilation with improving PO2 FiO2 gradient and decreasing FiO2 requirements Patient has severe lung and chest wall injury with a flail segment of fourth fifth and sixth rib and therefore will require prolonged ventilation and recovery In additions patient's age is aggravating circumstances and the situation Abdomen is soft active bowel sounds and patient will be started on enteral feeds Renal function well-preserved In summary this patient's main problem is pulmonary function and underlying pulmonary contusion and damage to the lung aggravated by severe chest wall contusion will lead to prolonged ventilatory support 01/18/2018 Patient remains intubated ventilated with adequate sedation in order to synchronize with the ventilator Hemodynamically patient is stable with good cardiac output and hemodynamic parameters Bilateral breath sounds patient remains on assist control ventilation with some changes today to increase his tidal volume and aerated the lower lobes better Patient does have atelectasis and infiltrates of both lower lobes and at this point we will increase the tidal volume and PEEP to open up this and if necessary patient will be placed on bilevel in the future Improving PO2 FiO2 gradient and patient breathing over the ventilator Left chest tube drainage 130 cc and patient has no air leak Renal function preserved patient is somewhat fluid overloaded and has been gently diuresed Great work by orthopedics with open fracture of the ankle At this point due to severity of the pulmonary trauma on the left and bilateral infiltrates it is clear that patient has aspirated at the time of the injury and is just a matter of time before he grows bacteria out of the sputum White count remains normal Depending on patient's progression and possible retention of secretions and development of further infiltrates patient may need bronchoscopy in the next few days Patient undergo second stage surgery for his ankle tomorrow and depending on further plans with orthopedics will afterwards wean the patient and assess pulmonary function as far as extubation is concerned Objective Vital Signs / I&O: Vital Signs 01/17/18 18:00 01/17/18 19:00 01/17/18 20:00 Temperature 101.1 F H 100.2 F H 99.5 F Pulse Rate 93 H 85 83 Respiratory Rate 14 14 14 Blood Pressure Pulse Oximetry 100 99 100 01/17/18 20:46 01/17/18 20:49 01/17/18 21:00 Temperature 99.0 F Pulse Rate 80 80 Respiratory Rate 14 14 14 Blood Pressure Pulse Oximetry 100 100 01/17/18 22:00 01/17/18 22:38 01/17/18 22:47 Temperature 98.8 F 98.6 F 98.6 F Pulse Rate 77 78 83 Respiratory Rate 17 14 14 Blood Pressure 108/59 L 122/61 Pulse Oximetry 100 100 99 01/17/18 23:00 01/17/18 23:02 01/18/18 00:00 Temperature 98.6 F 98.6 F 98.4 F Pulse Rate 87 84 76 Respiratory Rate 14 14 14 Blood Pressure 124/63 108/61 Pulse Oximetry 100 97 100 01/18/18 00:25 01/18/18 01:00 01/18/18 02:00 Temperature 98.2 F 98.2 F Pulse Rate 73 73 Respiratory Rate 15 14 14 Blood Pressure 105/58 L 98/57 L Pulse Oximetry 100 100 100 01/18/18 02:51 01/18/18 03:00 01/18/18 03:44 Temperature 98.4 F 98.2 F 98.4 F Pulse Rate 74 73 76 Respiratory Rate 14 14 14 Blood Pressure 99/57 L 97/56 L 122/69 Pulse Oximetry 99 98 97 01/18/18 04:00 01/18/18 05:00 01/18/18 05:20 Temperature 98.6 F 98.6 F Pulse Rate 87 71 Respiratory Rate 14 14 14 Blood Pressure 115/64 103/64 Pulse Oximetry 95 97 01/18/18 05:23 01/18/18 06:00 01/18/18 07:59 Temperature 98.4 F Pulse Rate 70 71 Respiratory Rate 14 14 14 Blood Pressure 104/61 Pulse Oximetry 100 100 01/18/18 08:00 01/18/18 09:11 01/18/18 11:59 Temperature 98.6 F Pulse Rate 70 72 Respiratory Rate 14 14 12 Blood Pressure Pulse Oximetry 99 100 01/18/18 12:00 01/18/18 15:50 01/18/18 16:00 Temperature 99 F 100.9 F H Pulse Rate 82 93 H 97 H Respiratory Rate 12 12 12 Blood Pressure 120/65 Pulse Oximetry 99 100 100 Intake & Output 01/17/18 01/18/18 01/18/18 18:59 06:59 18:59 Intake Total 2390 / 2390 831 / 831 469 / 469 Output Total 1335 / 1335 780 / 780 Balance 1055 / 1055 51 / 51 469 / 469 Weight 114.7 kg Intake: IV 850 / 850 831 / 831 469 / 469 Diprivan 1000 mg/100 ml Inj 1, 300 / 300 300 / 300 100 / 100 000 mg In 100 ml @ 5 MCG/KG/MIN 3.138 mls/hr IV.CONT TITRATE PRN Rx#:[id number] Ofirmev Inj 1,000 mg In 100 ml 100 / 100 @ 400 mls/hr IV.SIG Q6H PRN Rx# :[id number] Magnesium Sulfate Inj 2 GM In 100 / 100 NS Inj 96 ML @ 50 mls/hr IV.SIG UNSCH PRN Rx#:[id number] Levophed-Dextrose 4 mg/250 ml 250 / 250 Drip 4 mg In 250 ml @ 2 MCG/MIN 7.5 mls/hr IV.SIG TITRATE PRN Rx#:[id number] KCl 40 mEq Premix Inj 40 meq In 100 / 100 100 ml @ 25 mls/hr IV.SIG UNSCH PRN Rx#:[id number] Ancef Inj 1,000 MG In NS Inj 100 / 100 100 / 100 200 / 200 100 ML @ 200 mls/hr IV.SIG Q8H [facility] Rx#:[id number] fentaNYL 10 mcg/mL Premix Drip 250 / 250 81 / 81 169 / 169 2,500 mcg In 250 ml @ 50 MCG/HR 5 mls/hr IV.SIG TITRATE PRN Rx #:[id number] Anesthesia Amount 1000 / 1000 Other 540 / 540 Output: Estimated Blood Loss Urine Amount (Catheter) 1325 / 1325 700 / 700 Indwelling Urethral Catheter 1325 / 1325 700 / 700 Chest Tube Drainage 80 / 80 Left 80 / 80 Other: # Bowel Movements 0 Result Diagrams: 01/18/18 04:00 01/18/18 04:00 Imaging: Impressions Chest X-Ray 01/18/18 00:00 CONCLUSION: There is no evidence of pneumothorax. Bilateral lower lobe atelectasis versus pneumonia. The findings have worsened when compared with the prior examination. Disinhibition Score: 14.00 Aggression Score: 14.00 Lability Score: 14.00 Agitated Behavior Total Score: 14 - Exam TECHNICAL OPERATIONS VICE PRESIDENT: Patient remains intubated ventilated with adequate sedation in order to synchronize with the ventilator Hemodynamic/Cardiac: Hemodynamically patient is stable with good cardiac output and hemodynamic parameters Pulmonary/Respiratory: Bilateral breath sounds patient remains on assist control ventilation with some changes today to increase his tidal volume and aerated the lower lobes better Patient does have atelectasis and infiltrates of both lower lobes and at this point we will increase the tidal volume and PEEP to open up this and if necessary patient will be placed on bilevel in the future Improving PO2 FiO2 gradient and patient breathing over the ventilator Left chest tube drainage 130 cc and patient has no air leak At this point due to severity of the pulmonary trauma on the left and bilateral infiltrates it is clear that patient has aspirated at the time of the injury and is just a matter of time before he grows bacteria out of the sputum White count remains normal Depending on patient's progression and possible retention of secretions and development of further infiltrates patient may need bronchoscopy in the next few days Patient undergo second stage surgery for his ankle tomorrow and depending on further plans with orthopedics will afterwards wean the patient and assess pulmonary function as far as extubation is concerned Abdomen/GI Nutrition: Abdomen is soft enteral feeds of tolerated and I believe patient will not require percutaneous gastrostomy or any other additional access for a believe he will be extubated successfully next 4-5 days providing he does not develop severe pneumonia or ARDS Renal/I&O: Renal function normal and preserved patient was slightly hypervolemic and has been diuresed Assessment and Plan Attestation: Critical care time 35 minutes
[2018-01-19] MEDS: Propofol 1000 mg/100 ml Inj 1,000 MG/100 ML BOTTLE IV.CONT PRN ×7 (00:32→23:15)
[2018-01-19] MEDS: Oral Hygiene Kit OROPHARYNG SCH ×4 (00:32→19:12)
[2018-01-19] MEDS: fentaNYL 10 mcg/mL Premix Drip 2,500 MCG/250 ML BAG IV.SIG PRN ×2 (01:06→16:32)
[2018-01-19] MEDS: Chlorhexidine Gluconate 2% 1 Pack (2 Cloths) TOPICAL SCH (05:08)
--- NOTE | 2018-01-19 05:22 | XR ---
EXAM DATE: 01/19/2018 12:00 AM EDT AGE/SEX: 68 years / Male INDICATIONS: Shortness of breath. CLINICAL DATA: This is the patient's subsequent encounter. Patient reports that signs and symptoms h ave been present for 3 days and indicates a pain score of Nonresponsive. MEDICAL/SURGICAL HISTORY: . Hypertension. Diabetes mellitus type II. . Chest tube, left. [place] [facility] [place]. . FINDINGS: The cardiac silhouette is enlarged in transverse diameter. Support lines and tubes are in satisfactor y position. A left chest tube is in place. There is no evidence of pneumothorax. There is patchy alve olar disease bilaterally compatible with edema or pneumonia. CONCLUSION: Diffuse edema versus pneumonia. There has been no significant change when compared to the prior exam. Electronically signed by: Isidoro Garcia MD 01/19/2018 5:21 AM EDT
[2018-01-19 05:39] LABS: Baso % (Auto) 0.3 % (0.0-2.0); Eos # (Auto) 0.2 th/mm3 (0.0-0.4); Eos % (Auto) 2.5 % (0.0-4.0); Hemoglobin 10.1 gm/dL (13.0-17.0); Lymph # (Auto) 0.8 th/mm3 (1.0-4.8); Lymph % (Auto) 10.1 % (9.0-44.0); Mean Corpuscular HGB Conc 34.8 % (32.0-36.0); Mean Corpuscular Hemoglobin 30.5 pg (27.0-34.0); Mean Corpuscular Volume 87.8 fL (80.0-100.0); Mean Platelet Volume 8.9 fL (7.0-11.0); Mono # (Auto) 0.5 th/mm3 (0.0-0.9); Mono % (Auto) 7.4 % (0.0-8.0); Neut # (Auto) 5.9 th/mm3 (1.8-7.7); Neut % (Auto) 79.7 % (16.0-70.0); Platelet Count 93 th/mm3 (150-450); Red Cell Distribution Width 14.8 % (11.6-17.2); White Blood Count 7.4 th/mm3 (4.0-11.0)
[2018-01-19 05:52] LABS: ABG Base Excess 1.2 mmol/L (-2-2); ABG PCO2 36 mmHg (38-42); ABG PO2 99 mmHg (61-120)
[2018-01-19 06:21] LABS: Anion Gap 9 meq/L (5-15); Blood Urea Nitrogen 18 mg/dL (7-18); Calcium 7.3 mg/dL (8.5-10.1); Carbon Dioxide 25.3 meq/L (21.0-32.0); Chloride 112 meq/L (98-107); Glomerular Filtration Rate Greater Than 89 mL/min (>89); Glucose,Random 128 mg/dL (74-106); Potassium 3.3 meq/L (3.5-5.1); Sodium 146 meq/L (136-145)
[2018-01-19 06:32] LABS: Total Protein 5.5 g/dL (6.4-8.2)
[2018-01-19] MEDS: Potassium Chlor 40 mEq Premix 40 MEQ/100 ML PIGGYBACK IV.SIG PRN (06:42)
[2018-01-19] MEDS: Famotidine PF Inj 20 MG/2 ML Vial IV.PUSH SCH ×2 (08:31→20:33)
[2018-01-19 09:41] LABS: Eosinophils 4 % (0-4); Lymphocytes 12 % (9-44); Monocytes 3 % (0-8)
[2018-01-19 09:44] LABS: Dohle Bodies Present; Platelet Morphology Normal (Normal)
--- NOTE | 2018-01-19 11:52 | P.PNCC ---
Subjective Brief History: 68 [place] [facility] [place] was overall stable to transfer complaining of pain left lower extremity at the ankle area. On arrival he is in moderate distress he is hemodynamically stable his saturations are in the 90s range on supplemental oxygen he is however diaphoretic with a mild tachypnea he has equal breath sounds bilateral his GCS is 15 he complains of pain at his left lower extremity he has multiple road rashes equal pupils. Under moderate sedation patient's left ankle was attempted to reduce, 2 g of Ancef was given as IV antibiotics patient was brought to the CAT scan. Preliminary initial findings 1. Multiple left-sided rib fractures second to ninth rib left 2. Moderate sized left-sided hydropneumothorax with predominantly pneumothorax component. 3. Mild bilateral pulmonary contusions. 4. Open left ankle fracture Patient was resuscitated according to trauma protocols left chest tube was placed and patient remains on the ventilator Underwent washout and ex-fix of the left ankle by orthopedics 24 Hour Review/Hospital Course: 01/17/2018 Neurologically patient is intact he remains on the ventilator intubated and ventilated sedated Hemodynamically patient is stable Bilateral breath sounds on assist control mode ventilation with improving PO2 FiO2 gradient and decreasing FiO2 requirements Patient has severe lung and chest wall injury with a flail segment of fourth fifth and sixth rib and therefore will require prolonged ventilation and recovery In additions patient's age is aggravating circumstances and the situation Abdomen is soft active bowel sounds and patient will be started on enteral feeds Renal function well-preserved In summary this patient's main problem is pulmonary function and underlying pulmonary contusion and damage to the lung aggravated by severe chest wall contusion will lead to prolonged ventilatory support 01/18/2018 Patient remains intubated ventilated with adequate sedation in order to synchronize with the ventilator Hemodynamically patient is stable with good cardiac output and hemodynamic parameters Bilateral breath sounds patient remains on assist control ventilation with some changes today to increase his tidal volume and aerated the lower lobes better Patient does have atelectasis and infiltrates of both lower lobes and at this point we will increase the tidal volume and PEEP to open up this and if necessary patient will be placed on bilevel in the future Improving PO2 FiO2 gradient and patient breathing over the ventilator Left chest tube drainage 130 cc and patient has no air leak Renal function preserved patient is somewhat fluid overloaded and has been gently diuresed Great work by orthopedics with open fracture of the ankle At this point due to severity of the pulmonary trauma on the left and bilateral infiltrates it is clear that patient has aspirated at the time of the injury and is just a matter of time before he grows bacteria out of the sputum White count remains normal Depending on patient's progression and possible retention of secretions and development of further infiltrates patient may need bronchoscopy in the next few days Patient undergo second stage surgery for his ankle tomorrow and depending on further plans with orthopedics will afterwards wean the patient and assess pulmonary function as far as extubation is concerned 01/19/2018 Neurologically patient remains sedated on propofol and fentanyl On sedation vacation moves all 4 extremities opens eyes Hemodynamically patient stable but fluid overloaded will need diuresis as below noted Bilateral breath sounds on assist control ventilation with increasing infiltrates in both lungs inform us of ARDS pneumonic infiltrates and atelectasis Patient will need bronchoscopy today to clear the lungs and aspirate secretions to allow further weaning At this point patient will be ready to wean to extubate however he still has ankle surgery to undergo and after that we will address the de-escalation of the respiratory support Abdomen soft enteral feeds on hold due to surgery plans Renal function preserved and patient is now hypervolemic will need to be diuresed for his about 10 L positive In summary patient will be weaned to extubate after ankle surgery completed which may take a few days Objective Vital Signs / I&O: Vital Signs 01/18/18 11:59 01/18/18 12:00 01/18/18 14:00 Temperature 99 F Pulse Rate 82 98 H Respiratory Rate 12 12 Blood Pressure Pulse Oximetry 100 99 01/18/18 15:50 01/18/18 16:00 01/18/18 18:00 Temperature 100.9 F H Pulse Rate 93 H 97 H 102 H Respiratory Rate 12 12 Blood Pressure 120/65 Pulse Oximetry 100 100 01/18/18 19:21 01/18/18 20:00 01/18/18 21:18 Temperature 100 F H Pulse Rate 87 92 H Respiratory Rate 12 12 12 Blood Pressure Pulse Oximetry 100 100 01/18/18 22:00 01/19/18 00:00 01/19/18 01:51 Temperature 98.2 F Pulse Rate 92 H 68 Respiratory Rate 12 12 Blood Pressure Pulse Oximetry 100 100 01/19/18 02:00 01/19/18 03:18 01/19/18 04:00 Temperature 97.9 F Pulse Rate 64 65 76 Respiratory Rate 12 12 Blood Pressure Pulse Oximetry 100 01/19/18 04:06 01/19/18 06:00 01/19/18 07:43 Temperature Pulse Rate 64 69 Respiratory Rate 14 12 Blood Pressure Pulse Oximetry 100 100 01/19/18 08:00 Temperature 98.4 F Pulse Rate 76 Respiratory Rate 13 Blood Pressure Pulse Oximetry 100 Intake & Output 01/18/18 01/19/18 01/19/18 18:59 06:59 18:59 Intake Total 969 / 969 1650 / 1650 100 / 100 Output Total 500 / 500 425 / 425 Balance 469 / 469 1225 / 1225 100 / 100 Weight 115.2 kg Intake: IV 669 / 669 1650 / 1650 100 / 100 Diprivan 1000 mg/100 ml Inj 1, 200 / 200 300 / 300 100 / 100 000 mg In 100 ml @ 5 MCG/KG/MIN 3.138 mls/hr IV.CONT TITRATE PRN Rx#:[id number] NS Inj 1,000 ML @ 40 mls/hr IV. 1000 / 1000 CONT .Q24H [facility] Rx#:[id number] Ofirmev Inj 1,000 mg In 100 ml 100 / 100 @ 400 mls/hr IV.SIG Q6H PRN Rx# :[id number] Ancef Inj 1,000 MG In NS Inj 200 / 200 100 / 100 100 ML @ 200 mls/hr IV.SIG Q8H [facility] Rx#:[id number] fentaNYL 10 mcg/mL Premix Drip 169 / 169 250 / 250 2,500 mcg In 250 ml @ 50 MCG/HR 5 mls/hr IV.SIG TITRATE PRN Rx #:[id number] Other 300 / 300 Output: Urine Amount (Catheter) 400 / 400 400 / 400 Indwelling Urethral Catheter 400 / 400 400 / 400 Gastric Drainage 50 / 50 Orogastric Tube 50 / 50 Chest Tube Drainage 50 / 50 25 / 25 Left 50 / 50 25 / 25 Other: # Bowel Movements 0 Result Diagrams: 01/19/18 04:15 01/19/18 04:15 Imaging: Impressions Chest X-Ray 01/19/18 00:00 CONCLUSION: Diffuse edema versus pneumonia. There has been no significant change when compared to the prior exam. Disinhibition Score: 14.00 Aggression Score: 14.00 Lability Score: 14.00 Agitated Behavior Total Score: 14 - Exam SENIOR CONSUMER INSIGHTS CONSULTANT: Neurologically patient remains sedated on propofol and fentanyl On sedation vacation moves all 4 extremities opens eyes Hemodynamic/Cardiac: Hemodynamically patient stable but fluid overloaded will need diuresis as below noted Pulmonary/Respiratory: Bilateral breath sounds on assist control ventilation with increasing infiltrates in both lungs inform us of ARDS pneumonic infiltrates and atelectasis Patient will need bronchoscopy today to clear the lungs and aspirate secretions to allow further weaning At this point patient will be ready to wean to extubate however he still has ankle surgery to undergo and after that we will address the de-escalation of the respiratory support In summary patient will be weaned to extubate after ankle surgery completed which may take a few days Abdomen/GI Nutrition: Abdomen soft enteral feeds on hold due to surgery plans Renal/I&O: Renal function preserved and patient is now hypervolemic will need to be diuresed for his about 10 L positive Assessment and Plan Attestation: Critical care time 32 minutes
[2018-01-19] MEDS: Senna/Docusate Sodium 8.6/50 MG Tablet PO SCH ×2 (15:04→20:33)
[2018-01-19] MEDS: Enoxaparin Inj 30 MG/0.3 ML Syringe SQ SCH ×2 (15:04→20:33)
[2018-01-19] MEDS: Chlorhexidine 0.12% Oral Kit 15 ML UDC OROPHARYNG SCH ×2 (15:05→20:34)
[2018-01-19] MEDS: Mupirocin 2% Nasal Oint Topical Syringe EACH NARE SCH ×2 (19:12→20:33)
[2018-01-20] MEDS: Oral Hygiene Kit OROPHARYNG SCH ×4 (00:03→17:42)
[2018-01-20] MEDS: Potassium Chlor 40 mEq Premix 40 MEQ/100 ML PIGGYBACK IV.SIG PRN (00:21)
[2018-01-20] MEDS: Propofol 1000 mg/100 ml Inj 1,000 MG/100 ML BOTTLE IV.CONT PRN ×5 (04:14→21:04)
[2018-01-20] MEDS: Chlorhexidine Gluconate 2% 1 Pack (2 Cloths) TOPICAL SCH (05:38)
--- NOTE | 2018-01-20 05:43 | XR ---
EXAM DATE: 01/20/2018 6:00 AM EDT AGE/SEX: 68 years / Male INDICATIONS: Shortness of breath CLINICAL DATA: This is the patient's subsequent encounter. Patient reports that signs and symptoms h ave been present for 4 - 6 days and indicates a pain score of Nonresponsive. MEDICAL/SURGICAL HISTORY: . Hypertension. Diabetes mellitus type II. Chest tube, left. COMPARISON: [facility] [place]ST 1V SINGLE AP, 01/19/2018. . FINDINGS: The cardiac silhouette is enlarged in transverse diameter. Support lines and tubes are in satisfactor y position. There are findings of congestive heart failure with interstitial and alveolar opacity ayden aterally. Small bilateral pleural effusions are identified. CONCLUSION: Cardiomegaly and findings of congestive heart failure. There has been no significant change when com pared to the prior exam. This Electronically signed by: Isidoro Garcia MD 01/20/2018 5:41 AM EDT
[2018-01-20 06:05] LABS: Baso % (Auto) 0.4 % (0.0-2.0); Eos # (Auto) 0.1 th/mm3 (0.0-0.4); Hematocrit 30.4 % (39.0-51.0); Hemoglobin 10.4 gm/dL (13.0-17.0); Lymph # (Auto) 0.7 th/mm3 (1.0-4.8); Lymph % (Auto) 9.5 % (9.0-44.0); Mean Corpuscular HGB Conc 34.2 % (32.0-36.0); Mean Corpuscular Hemoglobin 30.1 pg (27.0-34.0); Mean Platelet Volume 8.5 fL (7.0-11.0); Mono # (Auto) 0.6 th/mm3 (0.0-0.9); Neut # (Auto) 5.8 th/mm3 (1.8-7.7); Neut % (Auto) 81.1 % (16.0-70.0); Platelet Count 122 th/mm3 (150-450); Red Blood Count 3.45 mil/mm3 (4.50-5.90); Red Cell Distribution Width 14.9 % (11.6-17.2); White Blood Count 7.2 th/mm3 (4.0-11.0)
[2018-01-20 06:08] LABS: ABG Base Excess 1.5 mmol/L (-2-2); ABG PCO2 39 mmHg (38-42); ABG PO2 109 mmHg (61-120)
[2018-01-20 06:33] LABS: Calcium 7.9 mg/dL (8.5-10.1); Carbon Dioxide 27.5 meq/L (21.0-32.0); Potassium 3.9 meq/L (3.5-5.1)
--- NOTE | 2018-01-20 07:11 | P.PNOP ---
Subjective Interval history: s/p I&d with exfix of left ankle and foot fractures intubated/sedated Physical Exam Vital signs: Vital Signs 01/19/18 07:43 01/19/18 08:00 01/19/18 10:00 Temperature 98.4 F Pulse Rate 69 76 74 Respiratory Rate 12 13 Pulse Oximetry 100 100 01/19/18 11:54 01/19/18 12:00 01/19/18 14:00 Temperature 99.1 F Pulse Rate 75 72 Respiratory Rate 12 12 Pulse Oximetry 100 100 01/19/18 15:08 01/19/18 16:00 01/19/18 16:03 Temperature 99.5 F Pulse Rate 85 86 Respiratory Rate 12 12 Pulse Oximetry 100 97 01/19/18 16:31 01/19/18 18:00 01/19/18 19:35 Temperature Pulse Rate 84 80 Respiratory Rate 12 12 Pulse Oximetry 97 100 01/19/18 20:00 01/19/18 22:00 01/20/18 00:00 Temperature 100.0 F H Pulse Rate 90 89 88 Respiratory Rate 12 Pulse Oximetry 100 01/20/18 00:54 01/20/18 02:00 01/20/18 03:36 Temperature Pulse Rate 82 85 Respiratory Rate 13 14 Pulse Oximetry 100 01/20/18 04:00 01/20/18 04:26 01/20/18 06:00 Temperature 99.5 F Pulse Rate 85 80 Respiratory Rate 12 12 Pulse Oximetry 98 98 Intake & Output 01/19/18 01/20/18 01/20/18 18:59 06:59 18:59 Intake Total 650 / 650 400 / 400 Output Total 1375 / 1375 1045 / 1045 Balance -725 / -725 -645 / -645 Weight 115.3 kg Intake: IV 650 / 650 400 / 400 Diprivan 1000 mg/100 ml Inj 1, 300 / 300 300 / 300 000 mg In 100 ml @ 5 MCG/KG/MIN 3.138 mls/hr IV.CONT TITRATE PRN Rx#:[id number] KCl 40 mEq Premix Inj 40 meq In 100 / 100 100 / 100 100 ml @ 25 mls/hr IV.SIG UNSCH PRN Rx#:[id number] fentaNYL 10 mcg/mL Premix Drip 250 / 250 2,500 mcg In 250 ml @ 50 MCG/HR 5 mls/hr IV.SIG TITRATE PRN Rx #:[id number] Oral 0 / 0 0 / 0 Output: Urine Amount (Catheter) 1375 / 1375 925 / 925 Indwelling Urethral Catheter 1375 / 1375 925 / 925 Gastric Drainage 50 / 50 Orogastric Tube 50 / 50 Chest Tube Drainage 0 / 0 70 / 70 Left 0 / 0 70 / 70 Other: Date of Last Bowel Movement 01/20/18 # Bowel Movements 0 1 Narrative: LLE: +exfix. +posterior splint. dressings removed and foot visualized. multiple fracture blisters present. 3+ swelling. - Urinary Catheter Management Indwelling Urethral Catheter Cath placed during this visit: yes Reason for continuing: Hourly intake/output Insertion date: 01/19/18 Results - Labs CBC & Chem 7: 01/20/18 05:45 01/20/18 05:45 Laboratory Results - last 24 hr 01/16/18 01/19/18 01/19/18 14:36 04:15 22:14 WBC RBC Hgb Hct MCV MCH MCHC RDW Plt Count MPV Neut % (Auto) Lymph % (Auto) Haakon % (Auto) Eos % (Auto) Baso % (Auto) Neut # (Auto) Lymph # (Auto) Haakon # (Auto) Eos # (Auto) Baso # (Auto) WBC Differential Manual diff final Seg Neuts % (Manual) 74 H Band Neuts % (Manual) 7 H Lymphocytes % (Manual) 12 Monocytes % (Manual) 3 Eosinophils % (Manual) 4 Abs Neuts (Manual) 6.0 Differential Comment Dohle Bodies Present H Platelet Estimate Low L Platelet Morphology Normal Puncture Site Patient Temperature O2 Saturation ABG pH ABG pCO2 ABG pO2 ABG HCO3 ABG O2 Content ABG Base Excess ABG Methemoglobin Hemoglobin Carboxyhemoglobin O2 Delivery Device Vent Setting Inspired O2 Critical Value Sodium Potassium Chloride Carbon Dioxide Anion Gap BUN Creatinine Estimated GFR POC Glucose 137 H Random Glucose Calcium MTS Gel Crossmatch See Detail 01/19/18 01/20/18 01/20/18 22:30 05:45 05:45 WBC 7.2 RBC 3.45 L Hgb 10.4 L Hct 30.4 L MCV 88.0 MCH 30.1 MCHC 34.2 RDW 14.9 Plt Count 122 L D MPV 8.5 Neut % (Auto) 81.1 H Lymph % (Auto) 9.5 Haakon % (Auto) 8.0 Eos % (Auto) 1.0 Baso % (Auto) 0.4 Neut # (Auto) 5.8 Lymph # (Auto) 0.7 L Haakon # (Auto) 0.6 Eos # (Auto) 0.1 Baso # (Auto) 0.0 WBC Differential . Seg Neuts % (Manual) Band Neuts % (Manual) Lymphocytes % (Manual) Monocytes % (Manual) Eosinophils % (Manual) Abs Neuts (Manual) Differential Comment Auto diff final Dohle Bodies Platelet Estimate Platelet Morphology Puncture Site Patient Temperature O2 Saturation ABG pH ABG pCO2 ABG pO2 ABG HCO3 ABG O2 Content ABG Base Excess ABG Methemoglobin Hemoglobin Carboxyhemoglobin O2 Delivery Device Vent Setting Inspired O2 Critical Value Sodium 145 Potassium 3.5 3.9 Chloride 111 H Carbon Dioxide 27.5 Anion Gap 7 BUN 22 H Creatinine 0.91 Estimated GFR 83 L POC Glucose Random Glucose 153 H Calcium 7.9 L MTS Gel Crossmatch 01/20/18 05:59 WBC RBC Hgb Hct MCV MCH MCHC RDW Plt Count MPV Neut % (Auto) Lymph % (Auto) Haakon % (Auto) Eos % (Auto) Baso % (Auto) Neut # (Auto) Lymph # (Auto) Haakon # (Auto) Eos # (Auto) Baso # (Auto) WBC Differential Seg Neuts % (Manual) Band Neuts % (Manual) Lymphocytes % (Manual) Monocytes % (Manual) Eosinophils % (Manual) Abs Neuts (Manual) Differential Comment Dohle Bodies Platelet Estimate Platelet Morphology Puncture Site Art line Patient Temperature 98.6 O2 Saturation 96 ABG pH 7.43 H ABG pCO2 39 ABG pO2 109 ABG HCO3 25 ABG O2 Content 15.6 ABG Base Excess 1.5 ABG Methemoglobin 1.2 Hemoglobin 11.5 L Carboxyhemoglobin 1.4 O2 Delivery Device Ventilator Vent Setting Prvc/ac Inspired O2 40 Critical Value No Sodium Potassium Chloride Carbon Dioxide Anion Gap BUN Creatinine Estimated GFR POC Glucose Random Glucose Calcium MTS Gel Crossmatch - Imaging Impressions Chest X-Ray 01/20/18 06:00 CONCLUSION: Cardiomegaly and findings of congestive heart failure. There has been no significant change when compared to the prior exam. This Assessment and Plan - Assessment and Plan 1) Left Ankle Fxs with Subtalar Dislocation 2) Left Metatarsal Fxs -swelling too significant for surgery. will likely be 7-10 days before ready for surgery based on amount of swelling present -elevate foot -ice -maintain splint and exfix -blisters debrided at bedside today -will keep re-evaluating and will plan for surgery when swelling appropriate
[2018-01-20] MEDS: fentaNYL 10 mcg/mL Premix Drip 2,500 MCG/250 ML BAG IV.SIG PRN ×2 (07:33→21:37)
--- NOTE | 2018-01-20 07:48 | P.OP ---
Date of procedure: 01/17/18 Procedure: 1. Irrigation and debridement left open talar dislocation (tibiotalar, talonavicular and talocalcaneal) 2. Irrigation and debridement left open first metatarsophalangeal fracture and dislocation 3. Irrigation and debridement left open 2nd metatarsal fracture 4. Open reduction left open talar dislocation 5. Open reduction left open 1st metatarsophalangeal fracture and dislocation 6. Application of external fixator left ankle and hindfoot Implants: Synthes external fixator Anesthesia: GETA Surgeon: Leni Massey MD Estimated blood loss (mL): 50 Pathology: other Operation and Findings: Indications for procedure: 68-year-old gentleman who presented as a trauma alert with open ankle and foot deformities. Patient became hemodynamically unstable in interventional radiology and required massive transfusion protocol. Patient was initially unstable to be taken to the operating room for orthopedic intervention. Once patient became stable, patient was taken in an urgent manner to the operating room for irrigation and debridement of his left ankle/subtalar dislocation and fracture, and open left first metatarsophalangeal joint dislocation and fracture. Risks, benefits, alternatives were discussed with the patient's . At this time she has given consent for the procedure. Description of procedure: Patient was brought back to the operating room intubated and sedated directly from the ICU. A tourniquet was placed on the left thigh and patient was prepped and draped in standard sterile fashion. Preoperative antibiotics were given within 1 incision. A timeout was performed to identify the correct patient, site, side and procedure to be performed. I then turned my attention to the open tibiotalar, subtalar and talocalcaneal dislocation. There is a small wound approximately 1-2 cm with significant abrasions over the skin. This wound was slightly enlarged with sharp dissection through the skin and subcutaneous tissue. The talar head was immediately identified. There is no gross evidence of contamination. The wound was thoroughly irrigated with 3 L of normal saline with gentamicin. The talus was then reduced and found to be relatively stable. There was evidence of appeared to be anterior calcaneal process fracture with comminution. In addition, patient does have a distal fibular fracture with mild displacement. I then turned my attention to the open first MTP joint fracture dislocation. This wound probed to the head and neck of the second metatarsal which also had multiple fractures. This was thoroughly irrigated with another 3 L of normal saline. The first MTP joint dislocation was then reduced and found to be relatively stable with intra-articular fracture. Further radiographs of the foot demonstrated fractures of the metatarsal head and neck of the second, third , fourth and fifth. At this time, 2 tibial external fixator pins were then placed just medial to the tibial crest and proximal to the fracture site. Small incisions were made and the skin was sharply sectioned down to the tibial crest. The external fixator pin sites were then drilled and 2 BEARDEN-coated pins subsequently placed. I then turned my attention to the calcaneal external fixator pin. A small incision was made on the medial aspect of the calcaneus with blunt dissection through subcutaneous tissue down to the bone. The external fixator pin was then placed from medial to lateral parallel to the tibiotalar joint. Clamps and rods were then applied to the external fixator pins into the ankle, subtalar joint was then reduced under fluoroscopy and the clamps final tightened. Final radiographs were obtained which demonstrated the tibiotalar, subtalar and talocalcaneal joints were well reduced. Fractures were within acceptable limits. The first MTP joint was well reduced. Sterile dressings were then applied along with a short leg splint. Patient was then taken directly back to the ICU intubated. Disposition: Patient will be nonweightbearing to the left lower extremity with plan for secondary definitive fixation by my partner, Dr. Plata later this week.
[2018-01-20] MEDS: Enoxaparin Inj 30 MG/0.3 ML Syringe SQ SCH ×2 (08:00→21:04)
[2018-01-20] MEDS: Sod Chloride 0.9% Inj 1,000 ML IV.CONT SCH (08:01)
[2018-01-20] MEDS: Chlorhexidine 0.12% Oral Kit 15 ML UDC OROPHARYNG SCH ×2 (08:01→21:05)
[2018-01-20] MEDS: Mupirocin 2% Nasal Oint Topical Syringe EACH NARE SCH ×2 (08:01→21:04)
[2018-01-20] MEDS: Famotidine PF Inj 20 MG/2 ML Vial IV.PUSH SCH ×2 (08:01→21:04)
[2018-01-20] MEDS: Senna/Docusate Sodium 8.6/50 MG Tablet PO SCH ×2 (08:02→21:06)
--- NOTE | 2018-01-20 14:07 | P.DIET ---
Nutritional Evaluation Screening comments: NPO x 3 days alert. Pt is s/p I&D of L ankle with external fixator. Remains intubated/sedated post surgery. Consult RD if needed.
--- NOTE | 2018-01-20 14:51 | P.PNCC ---
Subjective Brief History: 68 involved in an [facility] [place]. Patient was overall stable to transfer complaining of pain left lower extremity at the ankle area. On arrival he is in moderate distress he is hemodynamically stable his saturations are in the 90s range on supplemental oxygen he is however diaphoretic with a mild tachypnea he has equal breath sounds bilateral his GCS is 15 he complains of pain at his left lower extremity he has multiple road rashes equal pupils. Under moderate sedation patient's left ankle was attempted to reduce, 2 g of Ancef was given as IV antibiotics patient was brought to the CAT scan. Preliminary initial findings 1. Multiple left-sided rib fractures second to ninth rib left 2. Moderate sized left-sided hydropneumothorax with predominantly pneumothorax component. 3. Mild bilateral pulmonary contusions. 4. Open left ankle fracture Patient was resuscitated according to trauma protocols left chest tube was placed and patient remains on the ventilator Underwent washout and ex-fix of the left ankle by orthopedics 24 Hour Review/Hospital Course: 01/17/2018 Neurologically patient is intact he remains on the ventilator intubated and ventilated sedated Hemodynamically patient is stable Bilateral breath sounds on assist control mode ventilation with improving PO2 FiO2 gradient and decreasing FiO2 requirements Patient has severe lung and chest wall injury with a flail segment of fourth fifth and sixth rib and therefore will require prolonged ventilation and recovery In additions patient's age is aggravating circumstances and the situation Abdomen is soft active bowel sounds and patient will be started on enteral feeds Renal function well-preserved In summary this patient's main problem is pulmonary function and underlying pulmonary contusion and damage to the lung aggravated by severe chest wall contusion will lead to prolonged ventilatory support 01/18/2018 Patient remains intubated ventilated with adequate sedation in order to synchronize with the ventilator Hemodynamically patient is stable with good cardiac output and hemodynamic parameters Bilateral breath sounds patient remains on assist control ventilation with some changes today to increase his tidal volume and aerated the lower lobes better Patient does have atelectasis and infiltrates of both lower lobes and at this point we will increase the tidal volume and PEEP to open up this and if necessary patient will be placed on bilevel in the future Improving PO2 FiO2 gradient and patient breathing over the ventilator Left chest tube drainage 130 cc and patient has no air leak Renal function preserved patient is somewhat fluid overloaded and has been gently diuresed Great work by orthopedics with open fracture of the ankle At this point due to severity of the pulmonary trauma on the left and bilateral infiltrates it is clear that patient has aspirated at the time of the injury and is just a matter of time before he grows bacteria out of the sputum White count remains normal Depending on patient's progression and possible retention of secretions and development of further infiltrates patient may need bronchoscopy in the next few days Patient undergo second stage surgery for his ankle tomorrow and depending on further plans with orthopedics will afterwards wean the patient and assess pulmonary function as far as extubation is concerned 01/19/2018 Neurologically patient remains sedated on propofol and fentanyl On sedation vacation moves all 4 extremities opens eyes Hemodynamically patient stable but fluid overloaded will need diuresis as below noted Bilateral breath sounds on assist control ventilation with increasing infiltrates in both lungs inform us of ARDS pneumonic infiltrates and atelectasis Patient will need bronchoscopy today to clear the lungs and aspirate secretions to allow further weaning At this point patient will be ready to wean to extubate however he still has ankle surgery to undergo and after that we will address the de-escalation of the respiratory support Abdomen soft enteral feeds on hold due to surgery plans Renal function preserved and patient is now hypervolemic will need to be diuresed for his about 10 L positive In summary patient will be weaned to extubate after ankle surgery completed which may take a few days 01/20/2018 Neurologically patient is unchanged and he is on small dose propofol and 200 mcg of fentanyl considering severity of his injuries With sedation vacation patient following commands Hemodynamically patient is stable but hypertensive and this is being adjusted with number of antihypertensives on a scheduled and as needed basis Bilateral breath sounds remains on assist control ventilation mode with good PO2 FiO2 gradient Patient underwent bronchoscopy yesterday and large amount of mucus debris was removed and sent for cultures Today chest x-ray reveals somewhat better opacification of the lungs with decreased infiltrates We will start CPAP trials today and see how patient does, de-escalating the respiratory support toward extubation Discussed care with orthopedics and patient will not be going to the operating room for next ankle surgery at least a week due to swelling so we will work toward extubation Abdomen soft patient enterally fed and tolerating well Renal function preserved normal In addition patient will need some diuresis for he is hypervolemic and trying to mobilize the third space at this time Objective Vital Signs / I&O: Vital Signs 01/19/18 15:08 01/19/18 16:00 01/19/18 16:03 Temperature 99.5 F Pulse Rate 85 86 Respiratory Rate 12 12 Blood Pressure Pulse Oximetry 100 97 01/19/18 16:31 01/19/18 18:00 01/19/18 19:35 Temperature Pulse Rate 84 80 Respiratory Rate 12 12 Blood Pressure Pulse Oximetry 97 100 01/19/18 20:00 01/19/18 22:00 01/20/18 00:00 Temperature 100.0 F H Pulse Rate 90 89 88 Respiratory Rate 12 Blood Pressure Pulse Oximetry 100 01/20/18 00:54 01/20/18 02:00 01/20/18 03:36 Temperature Pulse Rate 82 85 Respiratory Rate 13 14 Blood Pressure Pulse Oximetry 100 01/20/18 04:00 01/20/18 04:26 01/20/18 06:00 Temperature 99.5 F Pulse Rate 85 80 Respiratory Rate 12 12 Blood Pressure Pulse Oximetry 98 98 01/20/18 07:00 01/20/18 08:00 01/20/18 08:19 Temperature 99.0 F 98.8 F Pulse Rate 80 75 76 Respiratory Rate 12 12 12 Blood Pressure 125/73 116/71 Pulse Oximetry 100 100 100 01/20/18 09:00 01/20/18 10:00 01/20/18 12:00 Temperature 98.6 F 98.8 F 99.1 F Pulse Rate 71 84 87 Respiratory Rate 12 13 14 Blood Pressure 119/68 158/91 H 143/85 H Pulse Oximetry 100 100 100 01/20/18 12:02 Temperature Pulse Rate Respiratory Rate 12 Blood Pressure Pulse Oximetry 100 Intake & Output 01/19/18 01/20/18 01/20/18 18:59 06:59 18:59 Intake Total 650 / 650 400 / 400 450 / 450 Output Total 1375 / 1375 1045 / 1045 Balance -725 / -725 -645 / -645 450 / 450 Weight 115.3 kg Intake: IV 650 / 650 400 / 400 450 / 450 Diprivan 1000 mg/100 ml Inj 1, 300 / 300 300 / 300 200 / 200 000 mg In 100 ml @ 5 MCG/KG/MIN 3.138 mls/hr IV.CONT TITRATE PRN Rx#:[id number] KCl 40 mEq Premix Inj 40 meq In 100 / 100 100 / 100 100 ml @ 25 mls/hr IV.SIG UNSCH PRN Rx#:[id number] fentaNYL 10 mcg/mL Premix Drip 250 / 250 250 / 250 2,500 mcg In 250 ml @ 50 MCG/HR 5 mls/hr IV.SIG TITRATE PRN Rx #:[id number] Oral 0 / 0 0 / 0 Output: Urine Amount (Catheter) 1375 / 1375 925 / 925 Indwelling Urethral Catheter 1375 / 1375 925 / 925 Gastric Drainage 50 / 50 Orogastric Tube 50 / 50 Chest Tube Drainage 0 / 0 70 / 70 Left 0 / 0 70 / 70 Other: Date of Last Bowel Movement 01/20/18 01/20/18 # Bowel Movements 0 1 Result Diagrams: 01/20/18 05:45 01/20/18 05:45 Imaging: Impressions Chest X-Ray 01/20/18 06:00 CONCLUSION: Cardiomegaly and findings of congestive heart failure. There has been no significant change when compared to the prior exam. This Disinhibition Score: 14.00 Aggression Score: 14.00 Lability Score: 14.00 Agitated Behavior Total Score: 14 - Exam [employer]: Neurologically patient is unchanged and he is on small dose propofol and 200 mcg of fentanyl considering severity of his injuries With sedation vacation patient following commands Hemodynamic/Cardiac: Hemodynamically patient is stable but hypertensive and this is being adjusted with number of antihypertensives on a scheduled and as needed basis Pulmonary/Respiratory: Bilateral breath sounds remains on assist control ventilation mode with good PO2 FiO2 gradient Patient underwent bronchoscopy yesterday and large amount of mucus debris was removed and sent for cultures Today chest x-ray reveals somewhat better opacification of the lungs with decreased infiltrates We will start CPAP trials today and see how patient does, de-escalating the respiratory support toward extubation Discussed care with orthopedics and patient will not be going to the operating room for next ankle surgery at least a week due to swelling so we will work toward extubation Abdomen/GI Nutrition: Abdomen soft patient enterally fed and tolerating well Renal/I&O: Renal function preserved normal In addition patient will need some diuresis for he is hypervolemic and trying to mobilize the third space at this time Assessment and Plan Attestation: Critical care time 32 minutes
[2018-01-20] MEDS: Lisinopril 20 MG Tablet PO SCH (16:32)
[2018-01-20] MEDS: Metoprolol Tartrate 25 MG Tablet PO SCH ×2 (16:32→21:04)
[2018-01-21] MEDS: Propofol 1000 mg/100 ml Inj 1,000 MG/100 ML BOTTLE IV.CONT PRN (01:32)
[2018-01-21 04:55] LABS: Baso % (Auto) 0.4 % (0.0-2.0); Eos # (Auto) 0.2 th/mm3 (0.0-0.4); Eos % (Auto) 3.3 % (0.0-4.0); Hematocrit 30.6 % (39.0-51.0); Hemoglobin 10.6 gm/dL (13.0-17.0); Lymph # (Auto) 0.9 th/mm3 (1.0-4.8); Lymph % (Auto) 14.2 % (9.0-44.0); Mean Corpuscular HGB Conc 34.5 % (32.0-36.0); Mean Corpuscular Hemoglobin 30.4 pg (27.0-34.0); Mean Corpuscular Volume 88.1 fL (80.0-100.0); Mean Platelet Volume 8.2 fL (7.0-11.0); Mono # (Auto) 0.7 th/mm3 (0.0-0.9); Mono % (Auto) 10.6 % (0.0-8.0); Neut # (Auto) 4.4 th/mm3 (1.8-7.7); Neut % (Auto) 71.5 % (16.0-70.0); Platelet Count 144 th/mm3 (150-450); Red Blood Count 3.48 mil/mm3 (4.50-5.90); Red Cell Distribution Width 14.5 % (11.6-17.2); White Blood Count 6.2 th/mm3 (4.0-11.0)
--- NOTE | 2018-01-21 04:57 | XR ---
EXAM DATE: 01/21/2018 6:00 AM EDT AGE/SEX: 68 years / Male INDICATIONS: Shortness of breath CLINICAL DATA: This is the patient's subsequent encounter. Patient reports that signs and symptoms h ave been present for 4 - 6 days and indicates a pain score of Nonresponsive. MEDICAL/SURGICAL HISTORY: . Hypertension. Diabetes mellitus type II. Chest tube, left. COMPARISON: [facility] [place], CHEST 1V SINGLE AP, 01/20/2018. . FINDINGS: The ET tube and NG tube are well placed. There is a left subclavian line in place. There is a left ch est tube. A significant pneumothorax is not seen. This increased density at the bases being worse on the right. The heart size is mildly enlarged. CONCLUSION: Cardiomegaly. Left chest tube without evidence of pneumothorax. Bibasilar areas of consolidation or atelectasis being worse in the right. Electronically signed by: Brijesh Lui MD 01/21/2018 4:56 AM EDT
[2018-01-21 05:22] LABS: Alanine Aminotransferase 26 U/L (12-78); Albumin 2.2 g/dL (3.4-5.0); Anion Gap 4 meq/L (5-15); Aspartate Aminotransferase 31 U/L (15-37); Blood Urea Nitrogen 30 mg/dL (7-18); Carbon Dioxide 30.6 meq/L (21.0-32.0); Chloride 111 meq/L (98-107); Glomerular Filtration Rate Greater Than 89 mL/min (>89); Glucose,Random 117 mg/dL (74-106); Potassium 3.5 meq/L (3.5-5.1); Sodium 146 meq/L (136-145)
[2018-01-21 05:25] LABS: Alkaline Phosphatase 82 U/L (45-117)
[2018-01-21 06:27] LABS: ABG Base Excess 3.3 mmol/L (-2-2); ABG PCO2 37 mmHg (38-42); ABG PO2 96 mmHg (61-120)
[2018-01-21] MEDS: Metoprolol Tartrate 25 MG Tablet PO SCH (09:07)
[2018-01-21] MEDS: Lisinopril 20 MG Tablet PO SCH (09:07)
[2018-01-21] MEDS: Mupirocin 2% Nasal Oint Topical Syringe EACH NARE SCH ×2 (09:07→21:32)
[2018-01-21] MEDS: glipiZIDE 5 MG Tablet PO SCH (09:07)
[2018-01-21] MEDS: Senna/Docusate Sodium 8.6/50 MG Tablet PO SCH ×2 (09:07→21:33)
[2018-01-21] MEDS: Chlorhexidine Gluconate 2% 1 Pack (2 Cloths) TOPICAL SCH (09:08)
[2018-01-21] MEDS: Oral Hygiene Kit OROPHARYNG SCH ×4 (09:08→15:58)
[2018-01-21] MEDS: Chlorhexidine 0.12% Oral Kit 15 ML UDC OROPHARYNG SCH ×2 (09:08→21:33)
[2018-01-21] MEDS: Enoxaparin Inj 30 MG/0.3 ML Syringe SQ SCH ×2 (09:09→21:32)
[2018-01-21] MEDS: Famotidine PF Inj 20 MG/2 ML Vial IV.PUSH SCH ×2 (09:09→21:32)
--- NOTE | 2018-01-21 10:59 | P.DIET ---
Nutritional Evaluation Type of nutrition evaluation: initial Nutrition consult regarding: Tube Feeding Subjective Subjective Comments: [facility] [place] Objective - Diagnosis Trauma - Objective % IBW: 125 (IBW = 184#) Body Weight Used for Calculations: Actual (104.6 kg admission wt) Energy Needs - Lower Range (kCal/kg): 25 Energy Needs - Upper Range (kCal/kg): 30 Lower Limit kCal/kg (kCals): 2,615 Upper Limit kCal/kg (kCals): 3,138 Lower Limit Protein Factor (Grams per Kg): 1.2 Upper Limit Protein Factor (Grams per Kg): 1.5 Lower Protein Needs (Protein): 126 Upper Protein Needs (Protein): 157 Dietitian Reviewed in Medical Record: Curent medications, Intake & Output, Labs , Medical history, Tube feeding Diet Order: NPO Assessment Assessment: Pt is vented/sedated and needs TFing to meet nutritional needs. Current order is for Glucerna 1.5 @ 50 mls/hr. Recommend goal rate of 65 mls/hr to provide 2340 kcals, 129 gms protein and 1184 mls of free water. Some additional kcals will be provided by propofol (1.1 kcal/ml). Pt is currently receiving 19 mls/hr of propofol and this provides 502 kcals/ 24 hrs. Recommendations: Glucerna 1.5 @ 65 mls/hr goal Dietitian to Monitor: Lab values, Intake & Output, Tube feeding tolerance, Weight change, Medical course
--- NOTE | 2018-01-21 11:43 | P.PNOP ---
Subjective Interval history: s/p I&D with exfix left foot and ankle fxs intubated/sedated. no changes Physical Exam Vital signs: Vital Signs 01/20/18 12:00 01/20/18 12:02 01/20/18 14:00 Temperature 99.1 F Pulse Rate 87 74 Respiratory Rate 14 12 Blood Pressure 143/85 H Pulse Oximetry 100 100 01/20/18 16:00 01/20/18 16:36 01/20/18 18:00 Temperature 98.4 F Pulse Rate 78 103 H 94 H Respiratory Rate 12 13 Blood Pressure 152/84 H Pulse Oximetry 100 95 01/20/18 20:00 01/20/18 20:40 01/20/18 22:00 Temperature 99.1 F Pulse Rate 96 H 70 74 Respiratory Rate 12 12 Blood Pressure 141/82 H Pulse Oximetry 100 98 01/20/18 23:56 01/21/18 00:00 01/21/18 02:00 Temperature 99.5 F Pulse Rate 70 64 Respiratory Rate 12 12 Blood Pressure 127/54 L Pulse Oximetry 100 01/21/18 03:34 01/21/18 04:00 01/21/18 06:00 Temperature 99.0 F Pulse Rate 73 66 68 Respiratory Rate 12 12 Blood Pressure 138/81 Pulse Oximetry 100 100 01/21/18 08:00 01/21/18 08:21 01/21/18 10:00 Temperature 99.0 F Pulse Rate 68 68 77 Respiratory Rate 12 12 Blood Pressure Pulse Oximetry 98 99 01/21/18 11:05 Temperature Pulse Rate Respiratory Rate 13 Blood Pressure Pulse Oximetry 100 Intake & Output 01/20/18 01/21/18 01/21/18 18:59 06:59 18:59 Intake Total 640 / 640 450 / 450 Output Total 1850 / 1850 700 / 700 Balance -1210 / -1210 -250 / -250 Weight 113.8 kg Intake: IV 550 / 550 450 / 450 Diprivan 1000 mg/100 ml Inj 1, 300 / 300 200 / 200 000 mg In 100 ml @ 5 MCG/KG/MIN 3.138 mls/hr IV.CONT TITRATE PRN Rx#:[id number] fentaNYL 10 mcg/mL Premix Drip 250 / 250 250 / 250 2,500 mcg In 250 ml @ 50 MCG/HR 5 mls/hr IV.SIG TITRATE PRN Rx #:[id number] Oral 0 / 0 Tube Irrigant 90 / 90 Output: Urine 600 / 600 Urine Amount (Catheter) 1800 / 1800 Indwelling Urethral Catheter 1800 / 1800 Chest Tube Drainage 50 / 50 100 / 100 Left 50 / 50 100 / 100 Other: Date of Last Bowel Movement 01/20/18 01/20/18 01/20/18 # Bowel Movements 1 0 Narrative: LLE: 3+ swelling of ankle. +exfix. +splint. good cap refill. - Urinary Catheter Management Indwelling Urethral Catheter Cath placed during this visit: yes Reason for continuing: Hourly intake/output Insertion date: 01/19/18 Results - Labs CBC & Chem 7: 01/21/18 04:30 01/21/18 04:30 Laboratory Results - last 24 hr 01/20/18 01/21/18 01/21/18 16:38 04:30 04:30 WBC 6.2 RBC 3.48 L Hgb 10.6 L Hct 30.6 L MCV 88.1 MCH 30.4 MCHC 34.5 RDW 14.5 Plt Count 144 L MPV 8.2 Neut % (Auto) 71.5 H Lymph % (Auto) 14.2 [place] % (Auto) 10.6 H Eos % (Auto) 3.3 Baso % (Auto) 0.4 Neut # (Auto) 4.4 Lymph # (Auto) 0.9 L [place] # (Auto) 0.7 Eos # (Auto) 0.2 Baso # (Auto) 0.0 WBC Differential . Differential Comment Auto diff final Puncture Site Patient Temperature O2 Saturation ABG pH ABG pCO2 ABG pO2 ABG HCO3 ABG O2 Content ABG Base Excess ABG Methemoglobin Hemoglobin Carboxyhemoglobin O2 Delivery Device Vent Setting Inspired O2 Critical Value Sodium 146 H Potassium 3.5 Chloride 111 H Carbon Dioxide 30.6 Anion Gap 4 L BUN 30 H Creatinine 0.82 Estimated GFR Greater than 89 POC Glucose 110 Random Glucose 117 H Calcium 8.0 L Total Bilirubin 1.3 H AST 31 ALT 26 Alkaline Phosphatase 82 Total Protein 6.0 L Albumin 2.2 L 01/21/18 06:15 WBC RBC Hgb Hct MCV MCH MCHC RDW Plt Count MPV Neut % (Auto) Lymph % (Auto) [place] % (Auto) Eos % (Auto) Baso % (Auto) Neut # (Auto) Lymph # (Auto) [place] # (Auto) Eos # (Auto) Baso # (Auto) WBC Differential Differential Comment Puncture Site [place] Patient Temperature 98.6 O2 Saturation 95 ABG pH 7.47 H ABG pCO2 37 L ABG pO2 96 ABG HCO3 27 H ABG O2 Content 12.4 ABG Base Excess 3.3 H ABG Methemoglobin 1.4 Hemoglobin 9.2 L Carboxyhemoglobin 1.7 O2 Delivery Device Vent Vent Setting See comments Inspired O2 40 Critical Value No Sodium Potassium Chloride Carbon Dioxide Anion Gap BUN Creatinine Estimated GFR POC Glucose Random Glucose Calcium Total Bilirubin AST ALT Alkaline Phosphatase Total Protein Albumin Microbiology 01/19/18 15:05 Sputum - Endotracheal Gram Stain - Final 01/19/18 15:05 Sputum - Endotracheal Sputum Culture - Preliminary Staphylococcus coag positive 01/19/18 15:05 Sputum - Endotracheal Fungal Smear - Final No fungal elements seen - Imaging Impressions Chest X-Ray 01/21/18 06:00 CONCLUSION: Cardiomegaly. Left chest tube without evidence of pneumothorax. Bibasilar areas of consolidation or atelectasis being worse in the right. Assessment and Plan - Assessment and Plan 1) Left Ankle Fxs with Subtalar Dislocation 2) Left Metatarsal Fxs -swelling too significant for surgery. will likely be 7-10 days before ready for surgery based on amount of swelling present -elevate foot -ice -maintain splint and exfix -will keep re-evaluating and will plan for surgery when swelling appropriate; possibly wednesday.
--- NOTE | 2018-01-21 13:40 | P.PNCC ---
Subjective Brief History: 68 involved in an [facility] [place]. Patient was overall stable to transfer complaining of pain left lower extremity at the ankle area. On arrival he is in moderate distress he is hemodynamically stable his saturations are in the 90s range on supplemental oxygen he is however diaphoretic with a mild tachypnea he has equal breath sounds bilateral his GCS is 15 he complains of pain at his left lower extremity he has multiple road rashes equal pupils. Under moderate sedation patient's left ankle was attempted to reduce, 2 g of Ancef was given as IV antibiotics patient was brought to the CAT scan. Preliminary initial findings 1. Multiple left-sided rib fractures second to ninth rib left 2. Moderate sized left-sided hydropneumothorax with predominantly pneumothorax component. 3. Mild bilateral pulmonary contusions. 4. Open left ankle fracture Patient was resuscitated according to trauma protocols left chest tube was placed and patient remains on the ventilator Underwent washout and ex-fix of the left ankle by orthopedics 24 Hour Review/Hospital Course: 01/17/2018 Neurologically patient is intact he remains on the ventilator intubated and ventilated sedated Hemodynamically patient is stable Bilateral breath sounds on assist control mode ventilation with improving PO2 FiO2 gradient and decreasing FiO2 requirements Patient has severe lung and chest wall injury with a flail segment of fourth fifth and sixth rib and therefore will require prolonged ventilation and recovery In additions patient's age is aggravating circumstances and the situation Abdomen is soft active bowel sounds and patient will be started on enteral feeds Renal function well-preserved In summary this patient's main problem is pulmonary function and underlying pulmonary contusion and damage to the lung aggravated by severe chest wall contusion will lead to prolonged ventilatory support 01/18/2018 Patient remains intubated ventilated with adequate sedation in order to synchronize with the ventilator Hemodynamically patient is stable with good cardiac output and hemodynamic parameters Bilateral breath sounds patient remains on assist control ventilation with some changes today to increase his tidal volume and aerated the lower lobes better Patient does have atelectasis and infiltrates of both lower lobes and at this point we will increase the tidal volume and PEEP to open up this and if necessary patient will be placed on bilevel in the future Improving PO2 FiO2 gradient and patient breathing over the ventilator Left chest tube drainage 130 cc and patient has no air leak Renal function preserved patient is somewhat fluid overloaded and has been gently diuresed Great work by orthopedics with open fracture of the ankle At this point due to severity of the pulmonary trauma on the left and bilateral infiltrates it is clear that patient has aspirated at the time of the injury and is just a matter of time before he grows bacteria out of the sputum White count remains normal Depending on patient's progression and possible retention of secretions and development of further infiltrates patient may need bronchoscopy in the next few days Patient undergo second stage surgery for his ankle tomorrow and depending on further plans with orthopedics will afterwards wean the patient and assess pulmonary function as far as extubation is concerned 01/19/2018 Neurologically patient remains sedated on propofol and fentanyl On sedation vacation moves all 4 extremities opens eyes Hemodynamically patient stable but fluid overloaded will need diuresis as below noted Bilateral breath sounds on assist control ventilation with increasing infiltrates in both lungs inform us of ARDS pneumonic infiltrates and atelectasis Patient will need bronchoscopy today to clear the lungs and aspirate secretions to allow further weaning At this point patient will be ready to wean to extubate however he still has ankle surgery to undergo and after that we will address the de-escalation of the respiratory support Abdomen soft enteral feeds on hold due to surgery plans Renal function preserved and patient is now hypervolemic will need to be diuresed for his about 10 L positive In summary patient will be weaned to extubate after ankle surgery completed which may take a few days 01/20/2018 Neurologically patient is unchanged and he is on small dose propofol and 200 mcg of fentanyl considering severity of his injuries With sedation vacation patient following commands Hemodynamically patient is stable but hypertensive and this is being adjusted with number of antihypertensives on a scheduled and as needed basis Bilateral breath sounds remains on assist control ventilation mode with good PO2 FiO2 gradient Patient underwent bronchoscopy yesterday and large amount of mucus debris was removed and sent for cultures Today chest x-ray reveals somewhat better opacification of the lungs with decreased infiltrates We will start CPAP trials today and see how patient does, de-escalating the respiratory support toward extubation Discussed care with orthopedics and patient will not be going to the operating room for next ankle surgery at least a week due to swelling so we will work toward extubation Abdomen soft patient enterally fed and tolerating well Renal function preserved normal In addition patient will need some diuresis for he is hypervolemic and trying to mobilize the third space at this time 01/21/2018 Patient doing well today Will remove propofol switch to Precedex and decrease fentanyl Supplement pain medication with oral medication Patient is moving all 4 extremities neurologically intact and follows commands/ opens eyes when lightly sedated Hemodynamically remained stable but hypertensive sedation is decreased and hence the changes Bilateral breath sounds on assist control ventilation which she is tolerating very well with good PO2 FiO2 gradient Tolerating CPAP trials and will gradually wean toward extubation as long as patient is synchronized with the ventilator Patient should be extubated in the next day or 2 This patient had severe chest injuries and hence the caution with extubation as well as prolonged intubation and sedation caution with patient's age Objective Vital Signs / I&O: Vital Signs 01/20/18 14:00 01/20/18 16:00 01/20/18 16:36 Temperature 98.4 F Pulse Rate 74 78 103 H Respiratory Rate 12 13 Blood Pressure 152/84 H Pulse Oximetry 100 95 01/20/18 18:00 01/20/18 20:00 01/20/18 20:40 Temperature 99.1 F Pulse Rate 94 H 96 H 70 Respiratory Rate 12 12 Blood Pressure 141/82 H Pulse Oximetry 100 98 01/20/18 22:00 01/20/18 23:56 01/21/18 00:00 Temperature 99.5 F Pulse Rate 74 70 Respiratory Rate 12 12 Blood Pressure 127/54 L Pulse Oximetry 100 01/21/18 02:00 01/21/18 03:34 01/21/18 04:00 Temperature 99.0 F Pulse Rate 64 73 66 Respiratory Rate 12 12 Blood Pressure 138/81 Pulse Oximetry 100 100 01/21/18 06:00 01/21/18 08:00 01/21/18 08:21 Temperature 99.0 F Pulse Rate 68 68 68 Respiratory Rate 12 12 Blood Pressure Pulse Oximetry 98 99 01/21/18 10:00 01/21/18 11:05 01/21/18 12:00 Temperature 99.9 F H Pulse Rate 77 121 H Respiratory Rate 13 13 Blood Pressure 141/58 H Pulse Oximetry 100 99 Intake & Output 01/20/18 01/21/18 01/21/18 18:59 06:59 18:59 Intake Total 640 / 640 450 / 450 Output Total 1850 / 1850 700 / 700 Balance -1210 / -1210 -250 / -250 Weight 113.8 kg Intake: IV 550 / 550 450 / 450 Diprivan 1000 mg/100 ml Inj 1, 300 / 300 200 / 200 000 mg In 100 ml @ 5 MCG/KG/MIN 3.138 mls/hr IV.CONT TITRATE PRN Rx#:[id number] fentaNYL 10 mcg/mL Premix Drip 250 / 250 250 / 250 2,500 mcg In 250 ml @ 50 MCG/HR 5 mls/hr IV.SIG TITRATE PRN Rx #:[id number] Oral 0 / 0 Tube Irrigant 90 / 90 Output: Urine 600 / 600 Urine Amount (Catheter) 1800 / 1800 Indwelling Urethral Catheter 1800 / 1800 Chest Tube Drainage 50 / 50 100 / 100 Left 50 / 50 100 / 100 Other: Date of Last Bowel Movement 01/20/18 01/20/18 01/20/18 # Bowel Movements 1 0 Result Diagrams: 01/21/18 04:30 01/21/18 04:30 Imaging: Impressions Chest X-Ray 01/21/18 06:00 CONCLUSION: Cardiomegaly. Left chest tube without evidence of pneumothorax. Bibasilar areas of consolidation or atelectasis being worse in the right. 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 Will remove propofol switch to Precedex and decrease fentanyl Supplement pain medication with oral medication Patient is moving all 4 extremities neurologically intact and follows commands/ opens eyes when lightly sedated Hemodynamic/Cardiac: Hemodynamically remained stable but hypertensive sedation is decreased and hence the changes Pulmonary/Respiratory: Bilateral breath sounds on assist control ventilation which she is tolerating very well with good PO2 FiO2 gradient Tolerating CPAP trials and will gradually wean toward extubation as long as patient is synchronized with the ventilator Patient should be extubated in the next day or 2 This patient had severe chest injuries and hence the caution with extubation as well as prolonged intubation and sedation caution with patient's age Abdomen/GI Nutrition: Abdomen soft enteral feeds tolerated Renal/I&O: Renal function is preserved patient needs additional diuresis Assessment and Plan Attestation: Critical care time 32 minutes
[2018-01-21] MEDS: Dexmedetomidine Inj 200 MCG in Sodium Chlor 0.9% Inj 48 ML IV.CONT PRN ×3 (14:11→21:31)
[2018-01-21] MEDS: fentaNYL 10 mcg/mL Premix Drip 2,500 MCG/250 ML BAG IV.SIG PRN (14:13)
[2018-01-21] MEDS: Sod Chloride 0.9% Inj 1,000 ML IV.CONT SCH (15:31)
[2018-01-21] MEDS: Metoprolol Inj 5 MG/5 ML Vial IV.PUSH SCH ×2 (17:06→23:36)
[2018-01-22] MEDS: Dexmedetomidine Inj 1,000 MCG in Sodium Chlor 0.9% Inj 240 ML IV.CONT PRN ×3 (00:47→13:43)
[2018-01-22] MEDS: fentaNYL 10 mcg/mL Premix Drip 2,500 MCG/250 ML BAG IV.SIG PRN ×3 (00:58→22:16)
[2018-01-22 03:33] LABS: Baso % (Auto) 0.5 % (0.0-2.0); Eos % (Auto) 0.4 % (0.0-4.0); Hematocrit 30.9 % (39.0-51.0); Hemoglobin 10.4 gm/dL (13.0-17.0); Lymph # (Auto) 0.7 th/mm3 (1.0-4.8); Lymph % (Auto) 9.6 % (9.0-44.0); Mean Corpuscular HGB Conc 33.7 % (32.0-36.0); Mean Corpuscular Volume 88.9 fL (80.0-100.0); Mean Platelet Volume 8.9 fL (7.0-11.0); Mono # (Auto) 0.8 th/mm3 (0.0-0.9); Mono % (Auto) 10.6 % (0.0-8.0); Neut # (Auto) 6.1 th/mm3 (1.8-7.7); Neut % (Auto) 78.9 % (16.0-70.0); Platelet Count 164 th/mm3 (150-450); Red Blood Count 3.47 mil/mm3 (4.50-5.90); Red Cell Distribution Width 14.4 % (11.6-17.2); White Blood Count 7.7 th/mm3 (4.0-11.0)
[2018-01-22 03:46] LABS: Alanine Aminotransferase 28 U/L (12-78); Albumin 2.1 g/dL (3.4-5.0); Anion Gap 6 meq/L (5-15); Aspartate Aminotransferase 24 U/L (15-37); Blood Urea Nitrogen 36 mg/dL (7-18); Calcium 7.9 mg/dL (8.5-10.1); Carbon Dioxide 28.2 meq/L (21.0-32.0); Chloride 110 meq/L (98-107); Glomerular Filtration Rate Greater Than 89 mL/min (>89); Glucose,Random 200 mg/dL (74-106); Potassium 4.1 meq/L (3.5-5.1); Sodium 144 meq/L (136-145)
[2018-01-22 03:48] LABS: Alkaline Phosphatase 101 U/L (45-117); Total Protein 5.8 g/dL (6.4-8.2)
[2018-01-22] MEDS: Oral Hygiene Kit OROPHARYNG SCH ×5 (03:54→23:21)
--- NOTE | 2018-01-22 05:47 | XR ---
EXAM DATE: 01/22/2018 6:00 AM EDT AGE/SEX: 68 years / Male INDICATIONS: Respiratory distress. CLINICAL DATA: This is the patient's subsequent encounter. Patient reports that signs and symptoms h ave been present for 4 - 6 days and indicates a pain score of Nonresponsive. MEDICAL/SURGICAL HISTORY: Hypertension. Diabetes mellitus type II. . Chest tube, left. COMPARISON: [facility] [place], CHEST 1V SINGLE AP, 01/21/2018. . FINDINGS: A single AP view of the chest demonstrates diminished lung volumes. Cardiomegaly with bilateral airsp esvin disease. Endotracheal tube and nasogastric tube unchanged. Left-sided chest tube unchanged. Osse ous structures are intact. CONCLUSION: 1. Left-sided chest tube without pneumothorax. 2. Cardiomegaly with bilateral airspace disease. Electronically signed by: Sebastián Medrano MD 01/22/2018 5:45 AM EDT
[2018-01-22] MEDS: Metoprolol Inj 5 MG/5 ML Vial IV.PUSH SCH ×4 (05:58→23:20)
[2018-01-22 06:28] LABS: ABG Base Excess 2.6 mmol/L (-2-2); ABG PCO2 37 mmHg (38-42); ABG PO2 144 mmHg (61-120)
[2018-01-22] MEDS: Sod Chloride 0.9% Inj 1,000 ML IV.CONT SCH (07:06)
[2018-01-22] MEDS: Mupirocin 2% Nasal Oint Topical Syringe EACH NARE SCH ×2 (09:25→20:46)
[2018-01-22] MEDS: Famotidine PF Inj 20 MG/2 ML Vial IV.PUSH SCH ×2 (09:25→20:45)
[2018-01-22] MEDS: Senna/Docusate Sodium 8.6/50 MG Tablet PO SCH ×2 (09:25→20:45)
[2018-01-22] MEDS: Chlorhexidine 0.12% Oral Kit 15 ML UDC OROPHARYNG SCH ×2 (09:26→19:47)
[2018-01-22] MEDS: Lisinopril 20 MG Tablet PO SCH (09:26)
[2018-01-22] MEDS: glipiZIDE 5 MG Tablet PO SCH (09:26)
[2018-01-22] MEDS: Enoxaparin Inj 30 MG/0.3 ML Syringe SQ SCH ×2 (09:26→19:46)
--- NOTE | 2018-01-22 11:41 | P.PNCC ---
Subjective Brief History: 68 involved in [place] [facility] [place] Patient was overall stable to transfer complaining of pain left lower extremity at the ankle area. On arrival he is in moderate distress he is hemodynamically stable his saturations are in the 90s range on supplemental oxygen he is however diaphoretic with a mild tachypnea he has equal breath sounds bilateral his GCS is 15 he complains of pain at his left lower extremity he has multiple road rashes equal pupils. Under moderate sedation patient's left ankle was attempted to reduce, 2 g of Ancef was given as IV antibiotics patient was brought to the CAT scan. Preliminary initial findings 1. Multiple left-sided rib fractures second to ninth rib left 2. Moderate sized left-sided hydropneumothorax with predominantly pneumothorax component. 3. Mild bilateral pulmonary contusions. 4. Open left ankle fracture Patient was resuscitated according to trauma protocols left chest tube was placed and patient remains on the ventilator Underwent washout and ex-fix of the left ankle by orthopedics 24 Hour Review/Hospital Course: 01/17/2018 Neurologically patient is intact he remains on the ventilator intubated and ventilated sedated Hemodynamically patient is stable Bilateral breath sounds on assist control mode ventilation with improving PO2 FiO2 gradient and decreasing FiO2 requirements Patient has severe lung and chest wall injury with a flail segment of fourth fifth and sixth rib and therefore will require prolonged ventilation and recovery In additions patient's age is aggravating circumstances and the situation Abdomen is soft active bowel sounds and patient will be started on enteral feeds Renal function well-preserved In summary this patient's main problem is pulmonary function and underlying pulmonary contusion and damage to the lung aggravated by severe chest wall contusion will lead to prolonged ventilatory support 01/18/2018 Patient remains intubated ventilated with adequate sedation in order to synchronize with the ventilator Hemodynamically patient is stable with good cardiac output and hemodynamic parameters Bilateral breath sounds patient remains on assist control ventilation with some changes today to increase his tidal volume and aerated the lower lobes better Patient does have atelectasis and infiltrates of both lower lobes and at this point we will increase the tidal volume and PEEP to open up this and if necessary patient will be placed on bilevel in the future Improving PO2 FiO2 gradient and patient breathing over the ventilator Left chest tube drainage 130 cc and patient has no air leak Renal function preserved patient is somewhat fluid overloaded and has been gently diuresed Great work by orthopedics with open fracture of the ankle At this point due to severity of the pulmonary trauma on the left and bilateral infiltrates it is clear that patient has aspirated at the time of the injury and is just a matter of time before he grows bacteria out of the sputum White count remains normal Depending on patient's progression and possible retention of secretions and development of further infiltrates patient may need bronchoscopy in the next few days Patient undergo second stage surgery for his ankle tomorrow and depending on further plans with orthopedics will afterwards wean the patient and assess pulmonary function as far as extubation is concerned 01/19/2018 Neurologically patient remains sedated on propofol and fentanyl On sedation vacation moves all 4 extremities opens eyes Hemodynamically patient stable but fluid overloaded will need diuresis as below noted Bilateral breath sounds on assist control ventilation with increasing infiltrates in both lungs inform us of ARDS pneumonic infiltrates and atelectasis Patient will need bronchoscopy today to clear the lungs and aspirate secretions to allow further weaning At this point patient will be ready to wean to extubate however he still has ankle surgery to undergo and after that we will address the de-escalation of the respiratory support Abdomen soft enteral feeds on hold due to surgery plans Renal function preserved and patient is now hypervolemic will need to be diuresed for his about 10 L positive In summary patient will be weaned to extubate after ankle surgery completed which may take a few days 01/20/2018 Neurologically patient is unchanged and he is on small dose propofol and 200 mcg of fentanyl considering severity of his injuries With sedation vacation patient following commands Hemodynamically patient is stable but hypertensive and this is being adjusted with number of antihypertensives on a scheduled and as needed basis Bilateral breath sounds remains on assist control ventilation mode with good PO2 FiO2 gradient Patient underwent bronchoscopy yesterday and large amount of mucus debris was removed and sent for cultures Today chest x-ray reveals somewhat better opacification of the lungs with decreased infiltrates We will start CPAP trials today and see how patient does, de-escalating the respiratory support toward extubation Discussed care with orthopedics and patient will not be going to the operating room for next ankle surgery at least a week due to swelling so we will work toward extubation Abdomen soft patient enterally fed and tolerating well Renal function preserved normal In addition patient will need some diuresis for he is hypervolemic and trying to mobilize the third space at this time 01/21/2018 Patient doing well today Will remove propofol switch to Precedex and decrease fentanyl Supplement pain medication with oral medication Patient is moving all 4 extremities neurologically intact and follows commands/ opens eyes when lightly sedated Hemodynamically remained stable but hypertensive sedation is decreased and hence the changes Bilateral breath sounds on assist control ventilation which she is tolerating very well with good PO2 FiO2 gradient Tolerating CPAP trials and will gradually wean toward extubation as long as patient is synchronized with the ventilator Patient should be extubated in the next day or 2 This patient had severe chest injuries and hence the caution with extubation as well as prolonged intubation and sedation caution with patient's age 1001/22/2018 Patient neurologically intact he is answering and following commands opening eyes Remains intubated ventilated Fentanyl decreased to comfortable levels and augmented by oxycodone via the tube DC propofol and started patient on Precedex which she is tolerating very well Hemodynamically stable and still quite hypertensive at to add additional antihypertensives as patient is waking up On Lopressor IV/Catapres patch/Procardia/Nitro-Dur patch Bilateral breath sounds remains on assist control ventilation and then with periods of CPAP which she is tolerating pretty well as long as sedation is adequate Unfortunately patient keeps desaturating and the chest x-ray reveals continuous airspace disease with diffuse infiltrates and areas of atelectasis Patient has been bronchoscoped which improved his function few days ago Clearly patient is not ready for extubation in the face of these changes he may end up requiring tracheostomy but will see next week Abdomen soft enteral feeds tolerated Renal function preserved Objective Vital Signs / I&O: Vital Signs 01/21/18 12:00 01/21/18 14:00 01/21/18 15:56 Temperature 99.9 F H Pulse Rate 121 H 117 H Respiratory Rate 13 20 Blood Pressure 141/58 H Pulse Oximetry 99 93 L 01/21/18 16:00 01/21/18 18:00 01/21/18 20:00 Temperature 99.9 F H 98.3 F Pulse Rate 92 H 70 66 Respiratory Rate 15 12 Blood Pressure 131/64 114/56 L Pulse Oximetry 92 L 97 01/21/18 20:38 01/21/18 22:00 01/21/18 22:57 Temperature Pulse Rate 67 79 Respiratory Rate 14 12 Blood Pressure Pulse Oximetry 97 91 L 01/22/18 00:00 01/22/18 02:00 01/22/18 03:53 Temperature 98.9 F Pulse Rate 61 61 Respiratory Rate 12 12 Blood Pressure 140/65 Pulse Oximetry 98 01/22/18 03:57 01/22/18 04:00 01/22/18 04:01 Temperature 99 F Pulse Rate 59 L Respiratory Rate 12 12 12 Blood Pressure 148/68 H Pulse Oximetry 98 01/22/18 06:00 01/22/18 08:00 01/22/18 08:21 Temperature 98.5 F Pulse Rate 63 61 Respiratory Rate 12 12 Blood Pressure Pulse Oximetry 100 99 01/22/18 10:00 Temperature Pulse Rate 75 Respiratory Rate Blood Pressure Pulse Oximetry Intake & Output 01/21/18 01/22/18 01/22/18 18:59 06:59 18:59 Intake Total 881 / 881 700 / 700 Output Total 390 / 390 1020 / 1020 Balance 491 / 491 700 / 700 -1020 / -1020 Weight 113.3 kg Intake: IV 400 / 400 700 / 700 Precedex Inj 1,000 MCG In NS 250 / 250 Inj 240 ML @ 0.2 MCG/KG/HR 5.69 mls/hr IV.CONT TITRATE PRN Rx# :[id number] Precedex Inj 200 MCG In NS Inj 50 / 50 100 / 100 48 ML @ 0.2 MCG/KG/HR 5.69 mls/ hr IV.CONT TITRATE PRN Rx#: [id number] Diprivan 1000 mg/100 ml Inj 1, 100 / 100 000 mg In 100 ml @ 5 MCG/KG/MIN 3.138 mls/hr IV.CONT TITRATE PRN Rx#:[id number] Ofirmev Inj 1,000 mg In 100 ml 100 / 100 @ 400 mls/hr IV.SIG Q6H PRN Rx# :[id number] fentaNYL 10 mcg/mL Premix Drip 250 / 250 250 / 250 2,500 mcg In 250 ml @ 50 MCG/HR 5 mls/hr IV.SIG TITRATE PRN Rx #:[id number] Oral 0 / 0 Tube Feeding 361 / 361 Tube Irrigant 120 / 120 Output: Pleural Fluid 40 / 40 Urine Amount (Catheter) 350 / 350 1000 / 1000 Indwelling Urethral Catheter 350 / 350 1000 / 1000 Chest Tube Drainage 20 / 20 Left 20 20 Other: Date of Last Bowel Movement 01/20/18 01/20/18 01/20/18 Result Diagrams: 01/22/18 02:30 01/22/18 02:30 Imaging: Impressions Chest X-Ray 01/22/18 06:00 CONCLUSION: 1. Left-sided chest tube without pneumothorax. 2. Cardiomegaly with bilateral airspace disease. 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: Patient neurologically intact he is answering and following commands opening eyes Remains intubated ventilated Fentanyl decreased to comfortable levels and augmented by oxycodone via the tube DC propofol and started patient on Precedex which she is tolerating very well Hemodynamic/Cardiac: Hemodynamically stable and still quite hypertensive at to add additional antihypertensives as patient is waking up On Lopressor IV/Catapres patch/Procardia/Nitro-Dur patch Pulmonary/Respiratory: Bilateral breath sounds remains on assist control ventilation and then with periods of CPAP which she is tolerating pretty well as long as sedation is adequate Unfortunately patient keeps desaturating and the chest x-ray reveals continuous airspace disease with diffuse infiltrates and areas of atelectasis Patient has been bronchoscoped which improved his function few days ago Clearly patient is not ready for extubation in the face of these changes he may end up requiring tracheostomy but will see next week Abdomen/GI Nutrition: Abdomen soft enteral feeds tolerated Renal/I&O: Renal function preserved Assessment and Plan Attestation: Patient with severe lung injury minimal drainage from the left chest tube however with persistent airspace disease with atelectasis fluffy infiltrates and residual ARDS effects due to aspiration and lung injury as such Attempts to wean patient down to extubate are marred by the above-noted pathologies and patient keeps desaturating He may require eventually tracheostomy despite improved neurologic status is the only way to come safely off the respirator Critical care time 34 minutes
[2018-01-22] MEDS: QUEtiapine 25 MG Tablet PO SCH ×2 (13:00→20:45)
[2018-01-23] MEDS: Dexmedetomidine Inj 1,000 MCG in Sodium Chlor 0.9% Inj 240 ML IV.CONT PRN ×2 (02:03→09:06)
[2018-01-23] MEDS: Enoxaparin Inj 30 MG/0.3 ML Syringe SQ SCH ×3 (03:19→20:26)
[2018-01-23] MEDS: Oral Hygiene Kit OROPHARYNG SCH (05:05)
[2018-01-23] MEDS: Metoprolol Inj 5 MG/5 ML Vial IV.PUSH SCH ×4 (05:05→22:20)
[2018-01-23 06:07] LABS: ABG Base Excess 3.8 mmol/L (-2-2); ABG PCO2 34 mmHg (38-42); ABG PO2 90 mmHg (61-120)
[2018-01-23 06:24] LABS: Baso # (Auto) 0.1 th/mm3 (0.0-0.2); Baso % (Auto) 0.9 % (0.0-2.0); Eos # (Auto) 0.1 th/mm3 (0.0-0.4); Eos % (Auto) 0.9 % (0.0-4.0); Hematocrit 28.1 % (39.0-51.0); Hemoglobin 9.7 gm/dL (13.0-17.0); Lymph % (Auto) 12.6 % (9.0-44.0); Mean Corpuscular HGB Conc 34.7 % (32.0-36.0); Mean Corpuscular Hemoglobin 30.9 pg (27.0-34.0); Mean Corpuscular Volume 89.1 fL (80.0-100.0); Mean Platelet Volume 8.7 fL (7.0-11.0); Mono % (Auto) 13.3 % (0.0-8.0); Neut # (Auto) 5.7 th/mm3 (1.8-7.7); Neut % (Auto) 72.3 % (16.0-70.0); Platelet Count 184 th/mm3 (150-450); Red Blood Count 3.16 mil/mm3 (4.50-5.90); Red Cell Distribution Width 14.3 % (11.6-17.2); White Blood Count 7.9 th/mm3 (4.0-11.0)
[2018-01-23 06:55] LABS: Anion Gap 7 meq/L (5-15); Aspartate Aminotransferase 26 U/L (15-37); Blood Urea Nitrogen 37 mg/dL (7-18); Calcium 8.1 mg/dL (8.5-10.1); Carbon Dioxide 28.5 meq/L (21.0-32.0); Chloride 113 meq/L (98-107); Glomerular Filtration Rate Greater Than 89 mL/min (>89); Glucose,Random 189 mg/dL (74-106); Potassium 3.8 meq/L (3.5-5.1); Sodium 148 meq/L (136-145)
[2018-01-23 06:58] LABS: Alanine Aminotransferase 29 U/L (12-78); Alkaline Phosphatase 98 U/L (45-117); Total Protein 5.7 g/dL (6.4-8.2)
[2018-01-23] MEDS: Mupirocin 2% Nasal Oint Topical Syringe EACH NARE SCH ×3 (07:00→20:26)
[2018-01-23] MEDS: Senna/Docusate Sodium 8.6/50 MG Tablet PO SCH ×4 (07:01→22:05)
[2018-01-23] MEDS: QUEtiapine 25 MG Tablet PO SCH ×4 (07:01→22:05)
[2018-01-23] MEDS: Famotidine PF Inj 20 MG/2 ML Vial IV.PUSH SCH ×3 (07:01→20:26)
--- NOTE | 2018-01-23 07:12 | XR ---
EXAM DATE: 01/23/2018 6:00 AM EDT AGE/SEX: 68 years / Male INDICATIONS: Shortness of breath. CLINICAL DATA: This is the patient's subsequent encounter. Patient reports that signs and symptoms h ave been present for 1 week and indicates a pain score of Nonresponsive. MEDICAL/SURGICAL HISTORY: Diabetes mellitus type II. Hypertension. Chest tube, left. [place] [facility] [place]. . FINDINGS: A single AP view of the chest demonstrates cardiomegaly with bibasilar densities. Left-sided chest tu be without pneumothorax. Multiple left-sided rib fractures. Endotracheal tube and nasogastric tube un changed. Osseous structures are intact. CONCLUSION: 1. Bibasilar densities, slightly improved. 2. No pneumothorax. Electronically signed by: Sebastián Medrano MD 01/23/2018 7:10 AM EDT
[2018-01-23] MEDS: Sod Chloride 0.9% Inj 1,000 ML IV.CONT SCH ×2 (08:22→22:54)
[2018-01-23] MEDS: Lisinopril 20 MG Tablet PO SCH (09:02)
[2018-01-23] MEDS: Chlorhexidine 0.12% Oral Kit 15 ML UDC OROPHARYNG SCH (09:03)
[2018-01-23] MEDS: glipiZIDE 5 MG Tablet PO SCH (09:03)
--- NOTE | 2018-01-23 10:54 | P.PNCC ---
Subjective Brief History: 68 [place] [facility] [place] overall stable to transfer complaining of pain left lower extremity at the ankle area. On arrival he is in moderate distress he is hemodynamically stable his saturations are in the 90s range on supplemental oxygen he is however diaphoretic with a mild tachypnea he has equal breath sounds bilateral his GCS is 15 he complains of pain at his left lower extremity he has multiple road rashes equal pupils. Under moderate sedation patient's left ankle was attempted to reduce, 2 g of Ancef was given as IV antibiotics patient was brought to the CAT scan. Preliminary initial findings 1. Multiple left-sided rib fractures second to ninth rib left 2. Moderate sized left-sided hydropneumothorax with predominantly pneumothorax component. 3. Mild bilateral pulmonary contusions. 4. Open left ankle fracture Patient was resuscitated according to trauma protocols left chest tube was placed and patient remains on the ventilator Underwent washout and ex-fix of the left ankle by orthopedics 24 Hour Review/Hospital Course: 01/17/2018 Neurologically patient is intact he remains on the ventilator intubated and ventilated sedated Hemodynamically patient is stable Bilateral breath sounds on assist control mode ventilation with improving PO2 FiO2 gradient and decreasing FiO2 requirements Patient has severe lung and chest wall injury with a flail segment of fourth fifth and sixth rib and therefore will require prolonged ventilation and recovery In additions patient's age is aggravating circumstances and the situation Abdomen is soft active bowel sounds and patient will be started on enteral feeds Renal function well-preserved In summary this patient's main problem is pulmonary function and underlying pulmonary contusion and damage to the lung aggravated by severe chest wall contusion will lead to prolonged ventilatory support 01/18/2018 Patient remains intubated ventilated with adequate sedation in order to synchronize with the ventilator Hemodynamically patient is stable with good cardiac output and hemodynamic parameters Bilateral breath sounds patient remains on assist control ventilation with some changes today to increase his tidal volume and aerated the lower lobes better Patient does have atelectasis and infiltrates of both lower lobes and at this point we will increase the tidal volume and PEEP to open up this and if necessary patient will be placed on bilevel in the future Improving PO2 FiO2 gradient and patient breathing over the ventilator Left chest tube drainage 130 cc and patient has no air leak Renal function preserved patient is somewhat fluid overloaded and has been gently diuresed Great work by orthopedics with open fracture of the ankle At this point due to severity of the pulmonary trauma on the left and bilateral infiltrates it is clear that patient has aspirated at the time of the injury and is just a matter of time before he grows bacteria out of the sputum White count remains normal Depending on patient's progression and possible retention of secretions and development of further infiltrates patient may need bronchoscopy in the next few days Patient undergo second stage surgery for his ankle tomorrow and depending on further plans with orthopedics will afterwards wean the patient and assess pulmonary function as far as extubation is concerned 01/19/2018 Neurologically patient remains sedated on propofol and fentanyl On sedation vacation moves all 4 extremities opens eyes Hemodynamically patient stable but fluid overloaded will need diuresis as below noted Bilateral breath sounds on assist control ventilation with increasing infiltrates in both lungs inform us of ARDS pneumonic infiltrates and atelectasis Patient will need bronchoscopy today to clear the lungs and aspirate secretions to allow further weaning At this point patient will be ready to wean to extubate however he still has ankle surgery to undergo and after that we will address the de-escalation of the respiratory support Abdomen soft enteral feeds on hold due to surgery plans Renal function preserved and patient is now hypervolemic will need to be diuresed for his about 10 L positive In summary patient will be weaned to extubate after ankle surgery completed which may take a few days 01/20/2018 Neurologically patient is unchanged and he is on small dose propofol and 200 mcg of fentanyl considering severity of his injuries With sedation vacation patient following commands Hemodynamically patient is stable but hypertensive and this is being adjusted with number of antihypertensives on a scheduled and as needed basis Bilateral breath sounds remains on assist control ventilation mode with good PO2 FiO2 gradient Patient underwent bronchoscopy yesterday and large amount of mucus debris was removed and sent for cultures Today chest x-ray reveals somewhat better opacification of the lungs with decreased infiltrates We will start CPAP trials today and see how patient does, de-escalating the respiratory support toward extubation Discussed care with orthopedics and patient will not be going to the operating room for next ankle surgery at least a week due to swelling so we will work toward extubation Abdomen soft patient enterally fed and tolerating well Renal function preserved normal In addition patient will need some diuresis for he is hypervolemic and trying to mobilize the third space at this time 01/21/2018 Patient doing well today Will remove propofol switch to Precedex and decrease fentanyl Supplement pain medication with oral medication Patient is moving all 4 extremities neurologically intact and follows commands/ opens eyes when lightly sedated Hemodynamically remained stable but hypertensive sedation is decreased and hence the changes Bilateral breath sounds on assist control ventilation which she is tolerating very well with good PO2 FiO2 gradient Tolerating CPAP trials and will gradually wean toward extubation as long as patient is synchronized with the ventilator Patient should be extubated in the next day or 2 This patient had severe chest injuries and hence the caution with extubation as well as prolonged intubation and sedation caution with patient's age 1001/22/2018 Patient neurologically intact he is answering and following commands opening eyes Remains intubated ventilated Fentanyl decreased to comfortable levels and augmented by oxycodone via the tube DC propofol and started patient on Precedex which she is tolerating very well Hemodynamically stable and still quite hypertensive at to add additional antihypertensives as patient is waking up On Lopressor IV/Catapres patch/Procardia/Nitro-Dur patch Bilateral breath sounds remains on assist control ventilation and then with periods of CPAP which she is tolerating pretty well as long as sedation is adequate Unfortunately patient keeps desaturating and the chest x-ray reveals continuous airspace disease with diffuse infiltrates and areas of atelectasis Patient has been bronchoscoped which improved his function few days ago Clearly patient is not ready for extubation in the face of these changes he may end up requiring tracheostomy but will see next week Abdomen soft enteral feeds tolerated Renal function preserved 01/23/18 Awake and alert on Precedex gtt Tolerating CPAP since this AM Respiratory parameters sufficient and patient extubated A&Ox2 post-extubation Objective Vital Signs / I&O: Vital Signs 01/22/18 11:34 01/22/18 12:00 01/22/18 14:00 Temperature 99.4 F Pulse Rate 91 H 73 Respiratory Rate 13 14 Blood Pressure 127/57 L Pulse Oximetry 93 L 93 L 01/22/18 15:23 01/22/18 16:00 01/22/18 18:00 Temperature 99.0 F Pulse Rate 110 H 105 H Respiratory Rate 16 21 Blood Pressure Pulse Oximetry 98 96 01/22/18 20:00 01/22/18 22:00 01/23/18 00:00 Temperature 100.3 F H 100.4 F H Pulse Rate 112 H 93 H 72 Respiratory Rate 14 12 Blood Pressure 136/66 114/50 L Pulse Oximetry 95 97 01/23/18 00:17 01/23/18 02:00 01/23/18 03:18 Temperature Pulse Rate 72 Respiratory Rate 12 12 Blood Pressure Pulse Oximetry 97 97 01/23/18 04:00 01/23/18 06:00 01/23/18 07:01 Temperature 100.4 F H Pulse Rate 64 63 Respiratory Rate 13 14 Blood Pressure 146/65 H Pulse Oximetry 97 01/23/18 07:50 01/23/18 08:00 01/23/18 10:40 Temperature 99.1 F Pulse Rate 70 108 H Respiratory Rate 14 14 14 Blood Pressure Pulse Oximetry 99 100 Intake & Output 01/22/18 01/23/18 01/23/18 18:59 06:59 18:59 Intake Total 1092 / 1092 425 / 425 250 / 250 Output Total 2120 / 2120 550 / 550 Balance -1028 / -1028 -125 / -125 250 / 250 Weight 112.4 kg Intake: IV 575 / 575 425 / 425 250 / 250 Precedex Inj 1,000 MCG In NS 325 / 325 175 / 175 250 / 250 Inj 240 ML @ 0.2 MCG/KG/HR 5.69 mls/hr IV.CONT TITRATE PRN Rx# :[id number] fentaNYL 10 mcg/mL Premix Drip 250 / 250 250 / 250 2,500 mcg In 250 ml @ 50 MCG/HR 5 mls/hr IV.SIG TITRATE PRN Rx #:[id number] Tube Feeding 317 / 317 Water Bolus Amount 200 / 200 Output: Urine 1100 / 1100 550 / 550 Urine Amount (Catheter) 1000 / 1000 Indwelling Urethral Catheter 1000 / 1000 Chest Tube Drainage 20 / 20 0 / 0 Left 20 / 20 0 / 0 Other: # Voids 1 Date of Last Bowel Movement 01/20/18 01/20/18 # Bowel Movements 0 Result Diagrams: 01/23/18 04:43 01/23/18 04:43 Imaging: Impressions Chest X-Ray 01/23/18 06:00 CONCLUSION: 1. Bibasilar densities, slightly improved. 2. No pneumothorax. Disinhibition Score: 14.00 Aggression Score: 14.00 Lability Score: 14.00 Agitated Behavior Total Score: 14 Objective Remarks: GENERAL: 68-year-old well-nourished, well developed male mechanically ventilated and lightly sedated. SKIN: Warm and dry. HEAD: Normocephalic. EYES: Pupils equal and round. No scleral icterus. ENT: No nasal bleeding or discharge. Mucous membranes pink and moist. NECK: Trachea midline. No JVD. CARDIOVASCULAR: Regular rate and rhythm. RESPIRATORY: No accessory muscle use. Lungs clear and diminished to auscultation bilaterally. Left lateral chest tube secured to Pleur-evac system on water seal. No air leak. GASTROINTESTINAL: Abdomen soft, non-tender, nondistended. + BS. MUSCULOSKELETAL: Extremities without cyanosis, +1 generalized edema. LLE ex-fix in place. Right radial A-line in place. MAEW, + perfused NEUROLOGICAL: Awake and alert. Follows commands. Assessment and Plan Plan: INJURIES: RIGHT rib fxs (11, 12) LEFT rib fxs (3-9) LEFT RANDY/PTX BILAT pulmonary contusions Lumbar artery lac Open LEFT ankle fx w/ dislocation Open LEFT metatarsal fx w/ dislocation LEFT 2-4 metatarsal fxs PMHx: DM. HTN. HLD RIGHT rib fxs, LEFT rib fxs, LEFT RANDY/PTX, BILAT pulmonary contusions, respiratory failure following trauma Supportive care 01/16: Intubated 01/16: LEFT CT placement 01/19: Bronchoscopy Tolerating CPAP, acceptable respiratory parameters 01/23: Extubated Wean Precedex gtt off Agitated behavior scale BID Seroquel 25/25/[address] on water seal Daily CT dressing changes Pulmonary toileting Scheduled and PRN Duo-nebs CXR shows improving bibasilar densities 01/19: Sputum cx + MRSA ?contaminate Observe off Abx, monitor for fevers Diamox 250mg x1 today ST for formal swallow eval Pain control Bowel regimen OOB- PT and OT ordered Lumbar artery lac Supportive 01/16: Angiography with Gelfoam embolization of the lumbar artery, L2, L3 Hgb stable Open LEFT ankle fx w/ dislocation, Open LEFT metatarsal fx w/ dislocation, LEFT 2-4 metatarsal fxs Orthopedics consulted 01/17: I&D LEFT open talar dislocation (tibiotalar, talonavicular and talocalcaneal). I&D LEFT open first metatarsophalangeal fx and dislocation. I&D LEFT open 2nd metatarsal fx. Open reduction LEFT open talar dislocation. Open reduction LEFT open 1st metatarsophalangeal fx and dislocation. Ex-fix LEFT ankle and hindfoot Pin care BID ABX per Ortho NWB LLE OOB-PT and OT ordered Pain control Bowel regimen HTN, HLD Lisinopril 20 mg QD Lopressor 5 mg IV q6h Catapres 0.3mg patch Procardia 20mg BID Nitro patch 0.6mg QD Lipitor DM Accu checks AC, HS ADA diet when taking PO Metformin Glipizide Plan of care discussed with patient and TOUR CONSULTANT at bedside. Collaborating Trauma surgeon agrees with plan. Case management consulted to assist with discharge planning.
[2018-01-24 04:03] LABS: Baso % (Auto) 0.3 % (0.0-2.0); Eos % (Auto) 0.6 % (0.0-4.0); Hematocrit 31.3 % (39.0-51.0); Hemoglobin 10.7 gm/dL (13.0-17.0); Lymph % (Auto) 12.3 % (9.0-44.0); Mean Corpuscular HGB Conc 34.1 % (32.0-36.0); Mean Corpuscular Hemoglobin 30.6 pg (27.0-34.0); Mean Corpuscular Volume 89.7 fL (80.0-100.0); Mean Platelet Volume 8.4 fL (7.0-11.0); Mono % (Auto) 13.2 % (0.0-8.0); Neut # (Auto) 5.8 th/mm3 (1.8-7.7); Neut % (Auto) 73.6 % (16.0-70.0); Platelet Count 245 th/mm3 (150-450); Red Blood Count 3.49 mil/mm3 (4.50-5.90); Red Cell Distribution Width 14.8 % (11.6-17.2); White Blood Count 7.8 th/mm3 (4.0-11.0)
[2018-01-24 04:33] LABS: Alanine Aminotransferase 38 U/L (12-78); Albumin 2.2 g/dL (3.4-5.0); Anion Gap 7 meq/L (5-15); Aspartate Aminotransferase 34 U/L (15-37); Blood Urea Nitrogen 32 mg/dL (7-18); Calcium 7.9 mg/dL (8.5-10.1); Carbon Dioxide 25.7 meq/L (21.0-32.0); Chloride 116 meq/L (98-107); Glomerular Filtration Rate 88 mL/min (>89); Glucose,Random 132 mg/dL (74-106); Potassium 3.6 meq/L (3.5-5.1); Sodium 149 meq/L (136-145)
[2018-01-24 04:36] LABS: Alkaline Phosphatase 121 U/L (45-117); Total Protein 6.1 g/dL (6.4-8.2)
[2018-01-24] MEDS: Metoprolol Inj 5 MG/5 ML Vial IV.PUSH SCH ×3 (05:13→17:09)
[2018-01-24] MEDS: Ketorolac Inj 30 MG/ML (IVP) Vial IV.PUSH PRN ×2 (05:14→12:54)
--- NOTE | 2018-01-24 06:06 | XR ---
EXAM DATE: 01/24/2018 6:00 AM EDT AGE/SEX: 68 years / Male INDICATIONS: Chest pain, shortness of breath. CLINICAL DATA: This is the patient's subsequent encounter. Patient reports that signs and symptoms h ave been present for 1 week and indicates a pain score of 5/10. MEDICAL/SURGICAL HISTORY: Hypertension. Diabetes mellitus type II. Chest tube, left. [place] [facility] [place]23/2018. . FINDINGS: There is a left-sided chest tube. A pneumothorax is not seen. The heart size is borderline enlarged. There is diffuse increased interstitial markings. There is further increased density at the bases liat ecially on the left with silhouetting the left hemidiaphragm. Multiple left-sided rib fractures are p resent. Clips are seen over the right axillary region. CONCLUSION: Diffuse increased interstitial markings likely related to edema. Bibasilar areas of consolidation or atelectasis. Some degree of effusion especially on the left needs to be considered. Electronically signed by: Brijesh Lui MD 01/24/2018 6:05 AM EDT
[2018-01-24] MEDS: glipiZIDE 5 MG Tablet PO SCH (06:21)
--- NOTE | 2018-01-24 07:04 | P.PNOP ---
Subjective Interval history: s/p exfix left ankle awake and alert. no new complaints Physical Exam Vital signs: Vital Signs 01/23/18 07:50 01/23/18 08:00 01/23/18 10:00 Temperature 99.1 F Pulse Rate 70 117 H Respiratory Rate 14 14 Blood Pressure Pulse Oximetry 99 100 01/23/18 10:40 01/23/18 12:00 01/23/18 14:00 Temperature 99.0 F Pulse Rate 108 H 115 H 109 H Respiratory Rate 14 23 Blood Pressure 166/67 H Pulse Oximetry 92 L 01/23/18 16:00 01/23/18 17:47 01/23/18 20:00 Temperature 98.4 F 98.5 F Pulse Rate 109 H 92 H 100 H Respiratory Rate 28 H 27 H Blood Pressure 171/77 H 176/81 H Pulse Oximetry 90 L 92 L 01/23/18 22:00 01/24/18 00:00 01/24/18 02:00 Temperature 98.2 F Pulse Rate 103 H 94 H 91 H Respiratory Rate 26 H Blood Pressure 144/65 H Pulse Oximetry 92 L 01/24/18 04:00 01/24/18 06:00 Temperature 98.9 F Pulse Rate 97 H 83 Respiratory Rate 26 H Blood Pressure 136/63 Pulse Oximetry 96 Intake & Output 01/23/18 01/24/18 01/24/18 18:59 06:59 18:59 Intake Total 353 / 353 100 / 100 Output Total 1100 / 1100 1600 / 1600 Balance -747 / -747 -1500 / -1500 Weight 110.1 kg Intake: IV 278 / 278 100 / 100 Precedex Inj 1,000 MCG In NS 278 / 278 Inj 240 ML @ 0.2 MCG/KG/HR 5.69 mls/hr IV.CONT TITRATE PRN Rx# :[id number] Ofirmev Inj 1,000 mg In 100 ml 100 / 100 @ 400 mls/hr IV.SIG Q6H PRN Rx# :[id number] fentaNYL 10 mcg/mL Premix Drip 0 / 0 2,500 mcg In 250 ml @ 50 MCG/HR 5 mls/hr IV.SIG TITRATE PRN Rx #:[id number] Oral 75 / 75 0 / 0 Tube Feeding 0 / 0 0 / 0 Tube Irrigant 0 / 0 Water Bolus Amount 0 / 0 0 / 0 Anesthesia Amount 0 / 0 Other 0 / 0 Output: Urine 1100 / 1100 Urine Amount (Catheter) 1600 / 1600 Indwelling Urethral Catheter 1600 / 1600 Chest Tube Drainage 0 / 0 Left 0 / 0 Other: Date of Last Bowel Movement 01/20/18 # Bowel Movements 0 Narrative: LLE: 1+ swelling of ankle. fracture blisters present. +exfix - Urinary Catheter Management Indwelling Urethral Catheter Cath placed during this visit: yes, but has since been removed by the nurse Reason for continuing: Decision to DC catheter Insertion date: 01/19/18 Removal date: 01/21/18 Removal time: 14:00 Results - Labs CBC & Chem 7: 01/24/18 02:55 01/24/18 02:55 Laboratory Results - last 24 hr 01/23/18 01/24/18 01/24/18 18:11 02:55 02:55 WBC 7.8 RBC 3.49 L Hgb 10.7 L Hct 31.3 L MCV 89.7 MCH 30.6 MCHC 34.1 RDW 14.8 Plt Count 245 D MPV 8.4 Neut % (Auto) 73.6 H Lymph % (Auto) 12.3 [place] % (Auto) 13.2 H Eos % (Auto) 0.6 Baso % (Auto) 0.3 Neut # (Auto) 5.8 Lymph # (Auto) 1.0 [place] # (Auto) 1.0 H Eos # (Auto) 0.0 Baso # (Auto) 0.0 WBC Differential . Differential Comment Auto diff final Sodium 149 H Potassium 3.6 Chloride 116 H Carbon Dioxide 25.7 Anion Gap 7 BUN 32 H Creatinine 0.87 Estimated GFR 88 L POC Glucose 105 Random Glucose 132 H Calcium 7.9 L Total Bilirubin 2.2 H AST 34 ALT 38 Alkaline Phosphatase 121 H Total Protein 6.1 L Albumin 2.2 L Microbiology 01/19/18 15:05 Sputum - Endotracheal Gram Stain - Final 01/19/18 15:05 Sputum - Endotracheal Sputum Culture - Final S. aureus MRSA - Imaging Impressions Chest X-Ray 01/23/18 06:00 CONCLUSION: 1. Bibasilar densities, slightly improved. 2. No pneumothorax. Chest X-Ray 01/24/18 06:00 CONCLUSION: Diffuse increased interstitial markings likely related to edema. Bibasilar areas of consolidation or atelectasis. Some degree of effusion especially on the left needs to be considered. Assessment and Plan - Assessment and Plan 1) Left Ankle Fxs with Subtalar Dislocation 2) Left Metatarsal Fxs -swelling too significant for surgery. fracture blisters are still present -will evaluate day to day for possible surgery -elevate foot -ice -maintain splint and exfix -will keep re-evaluating and will plan for surgery when swelling appropriate
[2018-01-24] MEDS: QUEtiapine 25 MG Tablet PO SCH (08:04)
[2018-01-24] MEDS: Lisinopril 20 MG Tablet PO SCH ×2 (08:04→12:12)
[2018-01-24] MEDS: Senna/Docusate Sodium 8.6/50 MG Tablet PO SCH ×2 (08:04→20:08)
[2018-01-24] MEDS: Famotidine PF Inj 20 MG/2 ML Vial IV.PUSH SCH ×2 (08:05→20:08)
[2018-01-24] MEDS: Enoxaparin Inj 30 MG/0.3 ML Syringe SQ SCH ×2 (08:05→20:08)
[2018-01-24] MEDS: Mupirocin 2% Nasal Oint Topical Syringe EACH NARE SCH ×2 (08:06→20:08)
--- NOTE | 2018-01-24 08:17 | P.NPEVAL ---
Patient History - Record/History Review Reason for Referral: The patient is a 68 year old right handed man status post possible concussion secondary to a [facility] on 01/16/2018. His GCS was [address] was unremarkable. He is referred for baseline neurobehavioral status examination per trauma protocol to assess cognitive, behavioral and emotional aspects of the injury and to provide treatment recommendations. [facility] - History History Provided By: Family Member - Medical / Surgical Hx Neg / Unobtainable Medical Problems Denied: Unable to Obtain (social,medical,family history not obtainable) - Medical History Medical History: Medical History (Last Updated 01/24/18 @ 09:36 by Rafaela Troy) Diabetes Hypercholesteremia Hypertension MDRO (multiple drug resistant organisms) resistance Onset Date: ~01/19/18 - Surgical History Surgical History: Surgical History (Last Reviewed 01/24/18 @ 08:05 by Krishna Millard) H/O hemorrhoidectomy - Tobacco History Second Hand Smoke Exposure: No Smoking Status: Never smoker - Alcohol History How Often Do You Have a Drink Containing Alcohol: Never - Substance Use History Substance History: No History of Abuse - Immunization History Tetanus Immunization: <5 Years Tetanus Immunization Year if Known: 2013 Hx Influenza Vaccine This Season: No Medications Active Medications Acetaminophen (Tylenol) 650 mg PO Q6H PRN PRN Reason: FEVER > 101 F Last Admin: 01/17/18 15:15 Dose: 650 mg Al Hydroxide/Mg Hydroxide (Milk Of Michelle Licasper) 30 ml PO Q12H PRN PRN Reason: Mild Constipation Albuterol (Duoneb Neb (Prn)) 1 ampul NEB Q2HR NEB PRN PRN Reason: SHORTNESS OF BREATH Last Admin: 01/23/18 10:35 Dose: 1 ampul Atorvastatin Calcium (Lipitor) 40 mg PO DAILY [facility] Last Admin: 01/24/18 08:04 Dose: Not Given Bacitracin (Baciguent Oint) 1 applicatio TOPICAL BID [facility] Last Admin: 01/24/18 08:06 Dose: 1 applicatio Bisacodyl (Dulcolax Supp) 10 mg RECTAL DAILY PRN PRN Reason: SEVERE CONSITIPATION Last Admin: 01/20/18 00:24 Dose: 10 mg Clonidine HCl (Catapress-Tts 0.3 Mg Patch.7d) 1 patch T-DERMAL Q7D [facility] Last Admin: 01/21/18 11:04 Dose: 1 patch Dextrose (D50w Vial) 50 ml IV.PUSH UNSCH PRN PRN Reason: PER HYPOGLYCEMIA PROTOCOL Diphenhydramine HCl (Benadryl) 25 mg PO Q6H PRN PRN Reason: ITCHING Last Admin: 01/22/18 19:44 Dose: 25 mg Enoxaparin Sodium (Lovenox Inj) 30 mg SQ Q12HR [facility] Last Admin: 01/24/18 08:05 Dose: 30 mg Famotidine (Pepcid Pf Inj) 20 mg IV.PUSH Q12HR [facility] Last Admin: 01/24/18 08:05 Dose: 20 mg Fentanyl (Duragesic 50 Mcg Patch.72hr) 1 patch T-DERMAL Q3D [facility] Last Admin: 01/23/18 11:12 Dose: 1 patch Glipizide (Glucotrol) 5 mg PO DAILYAC [facility] Last Admin: 01/24/18 06:21 Dose: Not Given Glucagon (Glucagon Inj) 1 mg OTHER PRN PRN PRN Reason: for Hypoglycemia Protocol Magnesium Sulfate 4 gm/ Sodium (Chloride) 100 mls @ 25 mls/hr IV.SIG UNSCH PRN PRN Reason: For Magnesium 0.9 - 1.1 mg/dL Magnesium Sulfate 2 gm/ Sodium (Chloride) 100 mls @ 50 mls/hr IV.SIG UNSCH PRN PRN Reason: For Magnesium 1.2 - 1.6 mg/dL Last Infusion: 01/17/18 12:30 Dose: Infused Potassium Chloride (Kcl 40 Meq Premix Inj) 40 meq in 100 mls @ 25 mls/hr IV.SIG Q2H PRN PRN Reason: For Potassium 2.8 - 3.2 mEq/L Potassium Chloride (Kcl 40 Meq Premix Inj) 40 meq in 100 mls @ 25 mls/hr IV.SIG UNSCH PRN PRN Reason: For Potassium 3.3 - 3.5 mEq/L Last Infusion: 01/20/18 04:21 Dose: Infused Potassium Chloride (Kcl 20 Meq Premix Inj) 20 meq in 100 mls @ 50 mls/hr IV.SIG Q2H PRN PRN Reason: For Potassium 2.8 - 3.2 mEq/L Potassium Phosphate 30 mmol/ (Sodium Chloride) 260 mls @ 42 mls/hr IV.SIG UNSCH PRN PRN Reason: SEE LABEL COMMENTS Sodium Phosphate 30 mmol/ (Sodium Chloride) 260 mls @ 42 mls/hr IV.SIG UNSCH PRN PRN Reason: For Phosphorus < 2.5 mg/dL Potassium Chloride (Kcl 20 Meq Premix Inj) 20 meq in 100 mls @ 50 mls/hr IV.SIG Q2H PRN PRN Reason: For Potassium 3.3 - 3.5 mEq/L Sodium Chloride (Ns Inj) 1,000 mls @ 0 mls/hr IV.SIG BOLUS FOZIA Sodium Chloride (Ns Inj) 1,000 mls @ 40 mls/hr IV.CONT .Q24H [facility] Last Admin: 01/23/18 22:54 Dose: Not Given Acetaminophen (Ofirmev Inj) 1,000 mg in 100 mls @ 400 mls/hr IV.SIG Q6H PRN PRN Reason: FEVER > 101 F IF NOT MARIA GUADALUPE PO Last Infusion: 01/24/18 01:58 Dose: Infused Ketorolac Tromethamine (Toradol Inj) 15 mg IV.PUSH Q6H PRN PRN Reason: PAIN 1-10 Stop: 01/29/18 01:36 Last Admin: 01/24/18 05:14 Dose: 15 mg Lactulose (Lactulose Liq) 30 ml PO DAILY PRN PRN Reason: SEVERE CONSITIPATION Last Admin: 01/20/18 00:24 Dose: 30 ml Lisinopril (Prinivil) 20 mg PO DAILY [facility] Last Admin: 01/24/18 08:04 Dose: Not Given Magnesium Oxide (Mag-Ox) 800 mg PO UNSCH PRN PRN Reason: For Magnesium 1.2 - 1.6 mg/dL [facility] Last Admin: 01/24/18 08:04 Dose: Not Given Metoprolol Tartrate (Lopressor Inj) 5 mg IV.PUSH Q6H [facility] Last Admin: 01/24/18 05:13 Dose: 5 mg Mupirocin (Bactroban 2% Nasal Oint) 1 applicatio EACH NARE BID [facility] Stop: 01/25/18 09:44 Last Admin: 01/24/18 08:06 Dose: 1 applicatio Nifedipine (Procardia) 20 mg PO BID [facility] Last Admin: 01/24/18 08:04 Dose: Not Given Nitroglycerin (Nitro-Dur 0.6 Mg Patch.24 Hr) 1 patch T-DERMAL DAILY [facility] Last Admin: 01/24/18 08:06 Dose: 1 patch Oxycodone HCl (Roxicodone) 5 mg PO Q4H [facility] Last Admin: 01/24/18 08:04 Dose: Not Given Patch Removal (Remove Old Patch) 1 each T-DERMAL Q7D [facility] Patch Removal (Remove Old Patch) 1 each T-DERMAL DAILY [facility] Last Admin: 01/24/18 08:05 Dose: 1 each Patch Removal (Remove Old Patch) 1 each T-DERMAL Q3D [facility] Potassium Bicarb/Potassium Chloride (K-Lyte Cl Eff) 50 meq PO UNSCH PRN PRN Reason: For Potassium 3.3 - 3.5 mEq/L Last Admin: 01/21/18 14:01 Dose: 50 meq Potassium Phosphate (K-Phos Original) 2,000 mg PO Q4H PRN PRN Reason: Phosphorus Less Than 2.5 mg/dL Potassium Phosphate (K-Phos Original) 2,000 mg PO UNSCH PRN PRN Reason: SEE LABEL COMMENTS Quetiapine Fumarate (Seroquel) 25 mg PO BID@0800,1400 [facility] Last Admin: 01/24/18 08:04 Dose: Not Given Quetiapine Fumarate (Seroquel) 50 mg PO HS [facility] Last Admin: 01/23/18 22:05 Dose: Not Given Senna/Docusate Sodium (Lynne-Colace) 1 tab PO BID [facility] Last Admin: 01/24/18 08:04 Dose: Not Given Sennosides (Senokot) 17.2 mg PO Q12H PRN PRN Reason: Moderate Constipation Sodium Chloride (Ns Flush) 2 ml IV.FLUSH BID [facility] Last Admin: 01/24/18 08:06 Dose: 2 ml Sodium Chloride (Ns Flush) 2 ml IV.FLUSH PRN PRN PRN Reason: FLUSH AFTER USING IV ACCESS Terbutaline Sulfate (Brethine Inj) 1 mg SQ UNSCH PRN PRN Reason: For Extravasation Mental Status Assessment - Mental Status Orientation: oriented to: Self, disoriented to: Place, Time Mental Status: Variable: Attention, Impaired: Thought processing, Learning/ memory Absent: Hallucinations, Delusions Adjustment/Coping Assessment - Observation In terms of emotional functioning, the patient demonstrated challenges. This patient demonstrated no signs of agitation, impulsivity or disinhibition, nor was there remarkable evidence of a formal thought disorder or psychosis. Thought content was free from suicidal, homicidal or paranoid ideation, and thought processes were bradyphrenic. The patients mood was apathetic, and his affect was flat. The patient appears to possess limited insight and awareness into their situation and within the limits of this brief evaluation, limited judgment. - Goals/Team Members LTG Status: Deferred STG Status: Deferred Team Members: Neuropsychologist Behavior - Behavior Treatment Engagement: Average - Observation Behaviorally, the patient demonstrated no signs of agitation, impulsivity or disinhibition. There was no remarkable evidence of a formal thought disorder or psychosis. - Goals LTG Status: Deferred STG Status: Deferred - Team Members Team Members: Neuropsychologist Diagnosis/Discharge Plan Impression: 68 year old male s/p possible concussion 2T [facility] on 01/16/2018. Disinhibition Score: 14.00 Aggression Score: 14.00 Lability Score: 14.00 Agitated Behavior Total Score: 14 Maximizing Acute Care Outcome: It is recommended that the patient be monitored for emergent behavioral impulsivity as the medical condition evolves. This patients neuropathological challenges may limit rehabilitation potential going forward, and these challenges will require specialized therapeutic skills to maximize outcome. Additionally, the patients family is experiencing ongoing issues of adjustment given the traumatic nature of the injury, and they may benefit from ongoing psychological assistance. At this point in the recovery process, the patient does not have cognitive capacity as the patient is unable to understand a situation and its likely consequences, nor is the patient able to manipulate information rationally. Cognitive capacity will be assessed throughout the recovery process. - Discharge Planning Anticipated Problems: Ongoing areas of concern will include behavioral impulsivity, lack of insight and judgment, which is expected to improve with time and treatment. Treatment Plan: This clinician will continue to follow with you throughout the course of this patients critical care treatment, and I will be available to meet with the patients family/support system to facilitate their understanding and the ongoing care of their family member. The goals of neuropsychological intervention shall be both educational and supportive to the family/support system as is deemed clinically appropriate. Thank you for the opportunity to assist in this patients care. Jm Díaz, Ph.D., ABPP Board Certified in Clinical Neuropsychology [place] [employer] Professional [employer] [place] Licensed Psychologist #[id number]
[2018-01-24] MEDS: Morphine Inj 4 MG/ML Vial IV.PUSH PRN ×2 (10:38→15:18)
--- NOTE | 2018-01-24 11:35 | P.PNCC ---
Subjective Brief History: 68 involved in an [facility]. Patient was overall stable to transfer complaining of pain left lower extremity at the ankle area. On arrival he is in moderate distress he is hemodynamically stable his saturations are in the 90s range on supplemental oxygen he is however diaphoretic with a mild tachypnea he has equal breath sounds bilateral his GCS is 15 he complains of pain at his left lower extremity he has multiple road rashes equal pupils. Under moderate sedation patient's left ankle was attempted to reduce, 2 g of Ancef was given as IV antibiotics patient was brought to the CAT scan. Preliminary initial findings 1. Multiple left-sided rib fractures second to ninth rib left 2. Moderate sized left-sided hydropneumothorax with predominantly pneumothorax component. 3. Mild bilateral pulmonary contusions. 4. Open left ankle fracture Patient was resuscitated according to trauma protocols left chest tube was placed and patient remains on the ventilator Underwent washout and ex-fix of the left ankle by orthopedics 24 Hour Review/Hospital Course: 01/17/2018 Neurologically patient is intact he remains on the ventilator intubated and ventilated sedated Hemodynamically patient is stable Bilateral breath sounds on assist control mode ventilation with improving PO2 FiO2 gradient and decreasing FiO2 requirements Patient has severe lung and chest wall injury with a flail segment of fourth fifth and sixth rib and therefore will require prolonged ventilation and recovery In additions patient's age is aggravating circumstances and the situation Abdomen is soft active bowel sounds and patient will be started on enteral feeds Renal function well-preserved In summary this patient's main problem is pulmonary function and underlying pulmonary contusion and damage to the lung aggravated by severe chest wall contusion will lead to prolonged ventilatory support 01/18/2018 Patient remains intubated ventilated with adequate sedation in order to synchronize with the ventilator Hemodynamically patient is stable with good cardiac output and hemodynamic parameters Bilateral breath sounds patient remains on assist control ventilation with some changes today to increase his tidal volume and aerated the lower lobes better Patient does have atelectasis and infiltrates of both lower lobes and at this point we will increase the tidal volume and PEEP to open up this and if necessary patient will be placed on bilevel in the future Improving PO2 FiO2 gradient and patient breathing over the ventilator Left chest tube drainage 130 cc and patient has no air leak Renal function preserved patient is somewhat fluid overloaded and has been gently diuresed Great work by orthopedics with open fracture of the ankle At this point due to severity of the pulmonary trauma on the left and bilateral infiltrates it is clear that patient has aspirated at the time of the injury and is just a matter of time before he grows bacteria out of the sputum White count remains normal Depending on patient's progression and possible retention of secretions and development of further infiltrates patient may need bronchoscopy in the next few days Patient undergo second stage surgery for his ankle tomorrow and depending on further plans with orthopedics will afterwards wean the patient and assess pulmonary function as far as extubation is concerned 01/19/2018 Neurologically patient remains sedated on propofol and fentanyl On sedation vacation moves all 4 extremities opens eyes Hemodynamically patient stable but fluid overloaded will need diuresis as below noted Bilateral breath sounds on assist control ventilation with increasing infiltrates in both lungs inform us of ARDS pneumonic infiltrates and atelectasis Patient will need bronchoscopy today to clear the lungs and aspirate secretions to allow further weaning At this point patient will be ready to wean to extubate however he still has ankle surgery to undergo and after that we will address the de-escalation of the respiratory support Abdomen soft enteral feeds on hold due to surgery plans Renal function preserved and patient is now hypervolemic will need to be diuresed for his about 10 L positive In summary patient will be weaned to extubate after ankle surgery completed which may take a few days 01/20/2018 Neurologically patient is unchanged and he is on small dose propofol and 200 mcg of fentanyl considering severity of his injuries With sedation vacation patient following commands Hemodynamically patient is stable but hypertensive and this is being adjusted with number of antihypertensives on a scheduled and as needed basis Bilateral breath sounds remains on assist control ventilation mode with good PO2 FiO2 gradient Patient underwent bronchoscopy yesterday and large amount of mucus debris was removed and sent for cultures Today chest x-ray reveals somewhat better opacification of the lungs with decreased infiltrates We will start CPAP trials today and see how patient does, de-escalating the respiratory support toward extubation Discussed care with orthopedics and patient will not be going to the operating room for next ankle surgery at least a week due to swelling so we will work toward extubation Abdomen soft patient enterally fed and tolerating well Renal function preserved normal In addition patient will need some diuresis for he is hypervolemic and trying to mobilize the third space at this time 01/21/2018 Patient doing well today Will remove propofol switch to Precedex and decrease fentanyl Supplement pain medication with oral medication Patient is moving all 4 extremities neurologically intact and follows commands/ opens eyes when lightly sedated Hemodynamically remained stable but hypertensive sedation is decreased and hence the changes Bilateral breath sounds on assist control ventilation which she is tolerating very well with good PO2 FiO2 gradient Tolerating CPAP trials and will gradually wean toward extubation as long as patient is synchronized with the ventilator Patient should be extubated in the next day or 2 This patient had severe chest injuries and hence the caution with extubation as well as prolonged intubation and sedation caution with patient's age 1001/22/2018 Patient neurologically intact he is answering and following commands opening eyes Remains intubated ventilated Fentanyl decreased to comfortable levels and augmented by oxycodone via the tube DC propofol and started patient on Precedex which she is tolerating very well Hemodynamically stable and still quite hypertensive at to add additional antihypertensives as patient is waking up On Lopressor IV/Catapres patch/Procardia/Nitro-Dur patch Bilateral breath sounds remains on assist control ventilation and then with periods of CPAP which she is tolerating pretty well as long as sedation is adequate Unfortunately patient keeps desaturating and the chest x-ray reveals continuous airspace disease with diffuse infiltrates and areas of atelectasis Patient has been bronchoscoped which improved his function few days ago Clearly patient is not ready for extubation in the face of these changes he may end up requiring tracheostomy but will see next week Abdomen soft enteral feeds tolerated Renal function preserved 01/23/18 Awake and alert on Precedex gtt Tolerating CPAP since this AM Respiratory parameters sufficient and patient extubated A&Ox2 post-extubation 01/24/18 Awake and calm Reports left leg and rib pain On minimal O2 IS volume = 1500mL OOB to chair today Passed swallow eval for pureed foods Objective Vital Signs / I&O: Vital Signs 01/23/18 12:00 01/23/18 14:00 01/23/18 16:00 Temperature 99.0 F 98.4 F Pulse Rate 115 H 109 H 109 H Respiratory Rate 23 28 H Blood Pressure 166/67 H 171/77 H Pulse Oximetry 92 L 90 L 01/23/18 17:47 01/23/18 20:00 01/23/18 22:00 Temperature 98.5 F Pulse Rate 92 H 100 H 103 H Respiratory Rate 27 H Blood Pressure 176/81 H Pulse Oximetry 92 L 01/24/18 00:00 01/24/18 02:00 01/24/18 04:00 Temperature 98.2 F 98.9 F Pulse Rate 94 H 91 H 97 H Respiratory Rate 26 H 26 H Blood Pressure 144/65 H 136/63 Pulse Oximetry 92 L 96 01/24/18 06:00 Temperature Pulse Rate 83 Respiratory Rate Blood Pressure Pulse Oximetry Intake & Output 01/23/18 01/24/18 01/24/18 18:59 06:59 18:59 Intake Total 353 / 353 100 / 100 Output Total 1100 / 1100 1600 / 1600 Balance -747 / -747 -1500 / -1500 Weight 110.1 kg Intake: IV 278 / 278 100 / 100 Precedex Inj 1,000 MCG In NS 278 / 278 Inj 240 ML @ 0.2 MCG/KG/HR 5.69 mls/hr IV.CONT TITRATE PRN Rx# :[id number] Ofirmev Inj 1,000 mg In 100 ml 100 / 100 @ 400 mls/hr IV.SIG Q6H PRN Rx# :[id number] fentaNYL 10 mcg/mL Premix Drip 0 / 0 2,500 mcg In 250 ml @ 50 MCG/HR 5 mls/hr IV.SIG TITRATE PRN Rx #:[id number] Oral 75 / 75 0 / 0 Tube Feeding 0 / 0 0 / 0 Tube Irrigant 0 / 0 Water Bolus Amount 0 / 0 0 / 0 Anesthesia Amount 0 / 0 Other 0 / 0 Output: Urine 1100 / 1100 Urine Amount (Catheter) 1600 / 1600 Indwelling Urethral Catheter 1600 / 1600 Chest Tube Drainage 0 / 0 Left 0 / 0 Other: Date of Last Bowel Movement 01/20/18 # Bowel Movements 0 Result Diagrams: 01/28/18 04:06 01/28/18 04:06 Imaging: Impressions Chest X-Ray 01/24/18 06:00 CONCLUSION: Diffuse increased interstitial markings likely related to edema. Bibasilar areas of consolidation or atelectasis. Some degree of effusion especially on the left needs to be considered. Disinhibition Score: 14.00 Aggression Score: 14.00 Lability Score: 14.00 Agitated Behavior Total Score: 14 Objective Remarks: GENERAL: 68-year-old well-nourished, well developed male lying in bed in no acute distress. SKIN: Warm and dry. LEFT forearm dressing removed, large abrasion noted. HEAD: Normocephalic. EYES: Pupils equal and round. No scleral icterus. ENT: No nasal bleeding or discharge. Mucous membranes pink and moist. NECK: Trachea midline. No JVD. CARDIOVASCULAR: Regular rate and rhythm. RESPIRATORY: No accessory muscle use. Lungs clear to auscultation bilaterally. Left lateral chest tube secured to Pleur-evac system on water seal. No air leak. GASTROINTESTINAL: Abdomen soft, non-tender, nondistended. + BS. MUSCULOSKELETAL: Extremities without cyanosis, +2 generalized edema. LLE ex-fix in place. MAEW, + perfused NEUROLOGICAL: Awake and alert. Speech clear. Assessment and Plan Plan: INJURIES: RIGHT rib fxs (11, 12) LEFT rib fxs (3-9) LEFT RANDY/PTX BILAT pulmonary contusions Lumbar artery lac Open LEFT ankle fx w/ dislocation Open LEFT metatarsal fx w/ dislocation LEFT 2-4 metatarsal fxs PMHx: DM. HTN. HLD RIGHT rib fxs, LEFT rib fxs, LEFT RANDY/PTX, BILAT pulmonary contusions, respiratory failure following trauma Supportive care 01/16: Intubated 01/16: LEFT CT placement 01/19: Bronchoscopy 01/23: Extubated Agitated behavior scale BID DC Seroquel Continue CT on water seal Daily CT dressing changes Pulmonary toileting Scheduled and PRN Duo-nebs CXR shows LLL density 01/19: Sputum cx + MRSA ?contaminate Observe off Abx, monitor for fevers ST for formal swallow eval- Pureed with thin liquids Pain control Bowel regimen OOB- PT and OT ordered Lumbar artery lac Supportive 01/16: Angiography with Gelfoam embolization of the lumbar artery, L2, L3 Hgb stable Open LEFT ankle fx w/ dislocation, Open LEFT metatarsal fx w/ dislocation, LEFT 2-4 metatarsal fxs Orthopedics consulted 01/17: I&D LEFT open talar dislocation (tibiotalar, talonavicular and talocalcaneal). I&D LEFT open first metatarsophalangeal fx and dislocation. I&D LEFT open 2nd metatarsal fx. Open reduction LEFT open talar dislocation. Open reduction LEFT open 1st metatarsophalangeal fx and dislocation. Ex-fix LEFT ankle and hindfoot Ortho waiting for swelling to reduce before definitive sx is done on LLE Pin care BID ABX per Ortho NWB LLE OOB-PT and OT ordered Pain control Bowel regimen HTN, HLD Lisinopril 20 mg QD Lopressor 5 mg IV q6h Catapres 0.3mg patch Procardia 20mg BID Nitro patch 0.6mg QD Lipitor DM Accu checks AC, HS ADA diet Metformin Glipizide Plan of care discussed with patient and [employer]ICE [employer] ATTENDANT at bedside. Collaborating Trauma surgeon agrees with plan. Case management consulted to assist with discharge planning.
[2018-01-24] MEDS ORDERED: Bisacodyl 10 MG Supp RECTAL ONE (12:00)
[2018-01-24] MEDS: Sod Chloride 0.9% Inj 1,000 ML IV.CONT SCH (15:30)
[2018-01-25] MEDS: Sod Chloride 0.9% Inj 1,000 ML IV.CONT SCH ×2 (00:23→23:47)
[2018-01-25] MEDS: Metoprolol Inj 5 MG/5 ML Vial IV.PUSH SCH ×2 (00:23→04:58)
--- NOTE | 2018-01-25 08:18 | P.PNNPSY ---
- Behavior Intact: Impulsive/agitated - Progress Notes/Response to Treatment Contents of Sessions: Adjustment, Level of consciousness Time with Patient: 30 minutes Premorbid Psychological Status: Premorbid Cognitive, Emotional and Behavioral Status: Tenuous. The patient has high school years of education and a questionable work history prior to this injury. The patient has unknown psychiatric difficulties, as described above. Substance abuse history is unknown. Behavioral Reactions of Patient and Family/Support System: Unable to Assess The patients family is experiencing ongoing issues of adjustment given the nature of the injury, and this aspect of recovery will require ongoing monitoring. Emotional/Behavioral Status of Patient and Family/Support System: Unable to Assess. Pertinent issues, if appropriate to this patients clinical care, are described in detail above. Maximizing Acute Care Outcome: It is recommended that the patient be monitored for emergent behavioral impulsivity as the medical condition evolves. This patients neuropathological challenges may limit rehabilitation potential going forward, and these challenges will require specialized therapeutic skills to maximize outcome. Additionally, the patients family is experiencing ongoing issues of adjustment given the traumatic nature of the injury, and they may benefit from ongoing psychological assistance. At this point in the recovery process, the patient does not have cognitive capacity as the patient is unable to understand a situation and its likely consequences, nor is the patient able to manipulate information rationally. Cognitive capacity will be assessed throughout the recovery process. Anticipated Problems: Ongoing areas of concern will include behavioral impulsivity, lack of insight and judgment, which is expected to improve with time and treatment. Treatment Plan: This clinician will continue to follow with you throughout the course of this patients critical care treatment, and I will be available to meet with the patients family/support system to facilitate their understanding and the ongoing care of their family member. The goals of neuropsychological intervention shall be both educational and supportive to the family/support system as is deemed clinically appropriate. Disinhibition Score: 14.00 Aggression Score: 14.00 Lability Score: 14.00 Agitated Behavior Total Score: 14 Impression: 68 year old male s/p possible concussion 2T [facility] [place] on 01/16/2018. Progress Note Narrative: PTD 9. There are presently no neurobehavioral issues. ABS = 14 (14,14,14). He is awake and calm. I will follow.
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
[2018-01-25] MEDS: Enoxaparin Inj 30 MG/0.3 ML Syringe SQ SCH ×2 (09:10→20:11)
[2018-01-25] MEDS: glipiZIDE 5 MG Tablet PO SCH (09:10)
[2018-01-25] MEDS: Mupirocin 2% Nasal Oint Topical Syringe EACH NARE SCH (09:10)
[2018-01-25] MEDS: Bisacodyl 10 MG Supp RECTAL SCH (09:10)
[2018-01-25] MEDS: Famotidine PF Inj 20 MG/2 ML Vial IV.PUSH SCH ×2 (09:10→20:10)
[2018-01-25] MEDS: Metoprolol Tartrate 25 MG Tablet PO SCH ×2 (09:11→20:12)
[2018-01-25] MEDS: Senna/Docusate Sodium 8.6/50 MG Tablet PO SCH ×2 (09:11→20:04)
[2018-01-25] MEDS: Lisinopril 20 MG Tablet PO SCH (09:11)
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
[2018-01-26 04:16] LABS: Baso # (Auto) 0.2 th/mm3 (0.0-0.2); Baso % (Auto) 2.4 % (0.0-2.0); Eos # (Auto) 0.1 th/mm3 (0.0-0.4); Eos % (Auto) 1.1 % (0.0-4.0); Hemoglobin 11.8 gm/dL (13.0-17.0); Lymph # (Auto) 0.7 th/mm3 (1.0-4.8); Lymph % (Auto) 7.7 % (9.0-44.0); Mean Corpuscular HGB Conc 35.9 % (32.0-36.0); Mean Corpuscular Hemoglobin 31.8 pg (27.0-34.0); Mean Corpuscular Volume 88.6 fL (80.0-100.0); Mean Platelet Volume 8.6 fL (7.0-11.0); Mono # (Auto) 0.5 th/mm3 (0.0-0.9); Mono % (Auto) 5.6 % (0.0-8.0); Neut # (Auto) 7.8 th/mm3 (1.8-7.7); Neut % (Auto) 83.2 % (16.0-70.0); Platelet Count 275 th/mm3 (150-450); Red Blood Count 3.72 mil/mm3 (4.50-5.90); Red Cell Distribution Width 14.7 % (11.6-17.2); White Blood Count 9.4 th/mm3 (4.0-11.0)
[2018-01-26 04:37] LABS: Anion Gap 6 meq/L (5-15); Blood Urea Nitrogen 26 mg/dL (7-18); Carbon Dioxide 28.6 meq/L (21.0-32.0); Chloride 112 meq/L (98-107); Glomerular Filtration Rate Greater Than 89 mL/min (>89); Glucose,Random 122 mg/dL (74-106); Potassium 3.5 meq/L (3.5-5.1); Sodium 147 meq/L (136-145)
[2018-01-26 05:18] LABS: Platelet Estimate Normal (Normal); Platelet Morphology Normal (Normal)
--- NOTE | 2018-01-26 05:35 | XR ---
EXAM DATE: 01/26/2018 12:00 AM EDT AGE/SEX: 68 years / Male INDICATIONS: Shortness of breath. CLINICAL DATA: This is the patient's subsequent encounter. Patient reports that signs and symptoms h ave been present for 1 week and indicates a pain score of Nonresponsive. MEDICAL/SURGICAL HISTORY: Non-responsive. Non-responsive. COMPARISON: [facility] [place]ST 1V SINGLE AP, 01/25/2018. . FINDINGS: The heart size is enlarged. Lungs demonstrate diffuse increased interstitial markings. There is furth er alveolar density seen at the lateral left base. The previous seen left chest tube is been removed. A significant pneumothorax is not seen. Left-sided rib fractures are seen. CONCLUSION: Diffuse increased interstitial markings which may relate to pulmonary venous hypertension or mild joni ma. Increased density at the lateral left base related to consolidations/contusion or atelectasis. Electronically signed by: Brijesh Lui MD 01/26/2018 5:34 AM EDT
--- NOTE | 2018-01-26 06:59 | P.PNOP ---
Subjective Interval history: s/p left ankle exfix s/p left talus dislocation with I&D s/p left open calcaneus fx doing well. states pain controlled. nurse reports he has been slightly confused Physical Exam Vital signs: Vital Signs 01/25/18 08:00 01/25/18 08:32 01/25/18 10:00 Temperature 99.2 F Pulse Rate 96 H 96 H Respiratory Rate 32 H Blood Pressure 190/99 H Pulse Oximetry 96 98 01/25/18 11:00 01/25/18 12:00 01/25/18 16:00 Temperature 99.3 F 98.9 F Pulse Rate 99 H 90 Respiratory Rate 24 24 Blood Pressure 133/72 152/76 H 167/89 H Pulse Oximetry 95 91 L 01/25/18 20:00 01/25/18 23:48 01/26/18 00:00 Temperature 98.8 F 97.6 F Pulse Rate 94 H 97 H Respiratory Rate 26 H 25 H 33 H Blood Pressure 160/90 H 140/77 Pulse Oximetry 94 L 94 L 01/26/18 04:00 Temperature 97.6 F Pulse Rate 94 H Respiratory Rate 26 H Blood Pressure 170/81 H Pulse Oximetry 94 L Intake & Output 01/25/18 01/25/18 01/26/18 06:59 18:59 06:59 Intake Total 240 / 240 Output Total 920 / 920 300 / 300 800 / 800 Balance -920 / -920 -300 / -300 -560 / -560 Weight 109 kg 107.1 kg Intake: Oral 240 / 240 Output: Urine 300 / 300 Urine Amount (Catheter) 900 / 900 800 / 800 Condom 900 / 900 800 / 800 Chest Tube Drainage 20 / 20 Left 20 / 20 Other: # Incontinent Voids 3 Date of Last Bowel Movement 01/20/18 01/25/18 01/26/18 # Bowel Movements 4 # Incontinent Bowel Movements 7 Narrative: LLE: +exfix. 3+ swelling of ankle. multiple fracture blisters present. medial incision maintaining. pin sites clean. - Urinary Catheter Management Indwelling Urethral Catheter Cath placed during this visit: yes, but has since been removed by the nurse Reason for continuing: Decision to DC catheter Insertion date: 01/19/18 Removal date: 01/21/18 Removal time: 14:00 Condom Cath placed during this visit: no Results - Labs CBC & Chem 7: 01/26/18 03:34 01/26/18 03:34 Laboratory Results - last 24 hr 01/25/18 01/25/18 01/25/18 06:55 13:06 17:07 WBC RBC Hgb Hct MCV MCH MCHC RDW Plt Count MPV Prelim Diff (Auto) Neut % (Auto) Lymph % (Auto) [place] % (Auto) Eos % (Auto) Baso % (Auto) Neut # (Auto) Lymph # (Auto) [place] # (Auto) Eos # (Auto) Baso # (Auto) WBC Differential Diff Scan Differential Comment Platelet Estimate Platelet Morphology Sodium Potassium Chloride Carbon Dioxide Anion Gap BUN Creatinine Estimated GFR POC Glucose 145 H 130 H 118 H Random Glucose Calcium 01/25/18 01/26/18 01/26/18 23:02 03:34 03:34 WBC 9.4 RBC 3.72 L Hgb 11.8 L Hct 33.0 L MCV 88.6 MCH 31.8 MCHC 35.9 RDW 14.7 Plt Count 275 MPV 8.6 Prelim Diff (Auto) Slide review pending Neut % (Auto) 83.2 H Lymph % (Auto) 7.7 L [place] % (Auto) 5.6 Eos % (Auto) 1.1 Baso % (Auto) 2.4 H Neut # (Auto) 7.8 H Lymph # (Auto) 0.7 L [place] # (Auto) 0.5 Eos # (Auto) 0.1 Baso # (Auto) 0.2 WBC Differential . Diff Scan Auto diff confirmed Differential Comment . Platelet Estimate Normal Platelet Morphology Normal Sodium 147 H Potassium 3.5 Chloride 112 H Carbon Dioxide 28.6 Anion Gap 6 BUN 26 H Creatinine 0.66 Estimated GFR Greater than 89 POC Glucose 124 H Random Glucose 122 H Calcium 8.0 L - Imaging Impressions Chest X-Ray 01/25/18 06:45 CONCLUSION: Almost complete resolution of previously seen pulmonary edema with residual pulmonary venous congestion remaining. Chest X-Ray 01/26/18 00:00 CONCLUSION: Diffuse increased interstitial markings which may relate to pulmonary venous hypertension or mild edema. Increased density at the lateral left base related to consolidations/contusion or atelectasis. Assessment and Plan - Assessment and Plan 1) Left Ankle Fxs with Subtalar Dislocation 2) Left Metatarsal Fxs 3) Left Calcaneus Fracture -swelling too significant for surgery. fracture blisters are still present and more have seemed to form -will evaluate day to day for possible surgery -elevate foot -ice -maintain splint and exfix -will keep re-evaluating and will plan for surgery when swelling appropriate
--- NOTE | 2018-01-26 08:07 | P.PNNPSY ---
- Cognitive Mild: Confused/orientation - Progress Notes/Response to Treatment Contents of Sessions: Adjustment, Level of consciousness Time with Patient: 30 minutes Premorbid Psychological Status: Premorbid Cognitive, Emotional and Behavioral Status: Tenuous. The patient has high school years of education and a questionable work history prior to this injury. The patient has unknown psychiatric difficulties, as described above. Substance abuse history is unknown. Behavioral Reactions of Patient and Family/Support System: Unable to Assess The patients family is experiencing ongoing issues of adjustment given the nature of the injury, and this aspect of recovery will require ongoing monitoring. Emotional/Behavioral Status of Patient and Family/Support System: Unable to Assess. Pertinent issues, if appropriate to this patients clinical care, are described in detail above. Maximizing Acute Care Outcome: It is recommended that the patient be monitored for emergent behavioral impulsivity as the medical condition evolves. This patients neuropathological challenges may limit rehabilitation potential going forward, and these challenges will require specialized therapeutic skills to maximize outcome. Additionally, the patients family is experiencing ongoing issues of adjustment given the traumatic nature of the injury, and they may benefit from ongoing psychological assistance. At this point in the recovery process, the patient does not have cognitive capacity as the patient is unable to understand a situation and its likely consequences, nor is the patient able to manipulate information rationally. Cognitive capacity will be assessed throughout the recovery process. Anticipated Problems: Ongoing areas of concern will include behavioral impulsivity, lack of insight and judgment, which is expected to improve with time and treatment. Treatment Plan: This clinician will continue to follow with you throughout the course of this patients critical care treatment, and I will be available to meet with the patients family/support system to facilitate their understanding and the ongoing care of their family member. The goals of neuropsychological intervention shall be both educational and supportive to the family/support system as is deemed clinically appropriate. Disinhibition Score: 21.00 Aggression Score: 17.50 Lability Score: 14.00 Agitated Behavior Total Score: 18 Impression: 68 year old [place]/p possible [place] [facility] [place] Progress Note Narrative: PTD 10. The patient is calm, stable, bradyphrenic and somewhat confused. Confusion is believed related to pain meds and he was switched to [place]. His ABS is 18 (21, 17.5,14), borderline agitation/restlessness. Continue current treatment approach. I will follow.
[2018-01-26] MEDS: Lisinopril 20 MG Tablet PO SCH (08:09)
[2018-01-26] MEDS: Metoprolol Tartrate 25 MG Tablet PO SCH (08:09)
[2018-01-26] MEDS: Bisacodyl 10 MG Supp RECTAL SCH (08:10)
[2018-01-26] MEDS: glipiZIDE 5 MG Tablet PO SCH (08:10)
[2018-01-26] MEDS: Enoxaparin Inj 30 MG/0.3 ML Syringe SQ SCH ×2 (08:10→21:30)
[2018-01-26] MEDS: Senna/Docusate Sodium 8.6/50 MG Tablet PO SCH ×2 (08:11→21:31)
[2018-01-26] MEDS: Famotidine PF Inj 20 MG/2 ML Vial IV.PUSH SCH ×2 (08:18→21:31)
[2018-01-26] MEDS ORDERED: Metoprolol Tartrate 50 MG Tablet PO ONE (10:30)
--- NOTE | 2018-01-26 15:45 | P.PNCC ---
Subjective Brief History: 68 involved in an [facility] [place] Patient was overall stable to transfer complaining of pain left lower extremity at the ankle area. On arrival he is in moderate distress he is hemodynamically stable his saturations are in the 90s range on supplemental oxygen he is however diaphoretic with a mild tachypnea he has equal breath sounds bilateral his GCS is 15 he complains of pain at his left lower extremity he has multiple road rashes equal pupils. Under moderate sedation patient's left ankle was attempted to reduce, 2 g of Ancef was given as IV antibiotics patient was brought to the CAT scan. Preliminary initial findings 1. Multiple left-sided rib fractures second to ninth rib left 2. Moderate sized left-sided hydropneumothorax with predominantly pneumothorax component. 3. Mild bilateral pulmonary contusions. 4. Open left ankle fracture Patient was resuscitated according to trauma protocols left chest tube was placed and patient remains on the ventilator Underwent washout and ex-fix of the left ankle by orthopedics 24 Hour Review/Hospital Course: 01/17/2018 Neurologically patient is intact he remains on the ventilator intubated and ventilated sedated Hemodynamically patient is stable Bilateral breath sounds on assist control mode ventilation with improving PO2 FiO2 gradient and decreasing FiO2 requirements Patient has severe lung and chest wall injury with a flail segment of fourth fifth and sixth rib and therefore will require prolonged ventilation and recovery In additions patient's age is aggravating circumstances and the situation Abdomen is soft active bowel sounds and patient will be started on enteral feeds Renal function well-preserved In summary this patient's main problem is pulmonary function and underlying pulmonary contusion and damage to the lung aggravated by severe chest wall contusion will lead to prolonged ventilatory support 01/18/2018 Patient remains intubated ventilated with adequate sedation in order to synchronize with the ventilator Hemodynamically patient is stable with good cardiac output and hemodynamic parameters Bilateral breath sounds patient remains on assist control ventilation with some changes today to increase his tidal volume and aerated the lower lobes better Patient does have atelectasis and infiltrates of both lower lobes and at this point we will increase the tidal volume and PEEP to open up this and if necessary patient will be placed on bilevel in the future Improving PO2 FiO2 gradient and patient breathing over the ventilator Left chest tube drainage 130 cc and patient has no air leak Renal function preserved patient is somewhat fluid overloaded and has been gently diuresed Great work by orthopedics with open fracture of the ankle At this point due to severity of the pulmonary trauma on the left and bilateral infiltrates it is clear that patient has aspirated at the time of the injury and is just a matter of time before he grows bacteria out of the sputum White count remains normal Depending on patient's progression and possible retention of secretions and development of further infiltrates patient may need bronchoscopy in the next few days Patient undergo second stage surgery for his ankle tomorrow and depending on further plans with orthopedics will afterwards wean the patient and assess pulmonary function as far as extubation is concerned 01/19/2018 Neurologically patient remains sedated on propofol and fentanyl On sedation vacation moves all 4 extremities opens eyes Hemodynamically patient stable but fluid overloaded will need diuresis as below noted Bilateral breath sounds on assist control ventilation with increasing infiltrates in both lungs inform us of ARDS pneumonic infiltrates and atelectasis Patient will need bronchoscopy today to clear the lungs and aspirate secretions to allow further weaning At this point patient will be ready to wean to extubate however he still has ankle surgery to undergo and after that we will address the de-escalation of the respiratory support Abdomen soft enteral feeds on hold due to surgery plans Renal function preserved and patient is now hypervolemic will need to be diuresed for his about 10 L positive In summary patient will be weaned to extubate after ankle surgery completed which may take a few days 01/20/2018 Neurologically patient is unchanged and he is on small dose propofol and 200 mcg of fentanyl considering severity of his injuries With sedation vacation patient following commands Hemodynamically patient is stable but hypertensive and this is being adjusted with number of antihypertensives on a scheduled and as needed basis Bilateral breath sounds remains on assist control ventilation mode with good PO2 FiO2 gradient Patient underwent bronchoscopy yesterday and large amount of mucus debris was removed and sent for cultures Today chest x-ray reveals somewhat better opacification of the lungs with decreased infiltrates We will start CPAP trials today and see how patient does, de-escalating the respiratory support toward extubation Discussed care with orthopedics and patient will not be going to the operating room for next ankle surgery at least a week due to swelling so we will work toward extubation Abdomen soft patient enterally fed and tolerating well Renal function preserved normal In addition patient will need some diuresis for he is hypervolemic and trying to mobilize the third space at this time 01/21/2018 Patient doing well today Will remove propofol switch to Precedex and decrease fentanyl Supplement pain medication with oral medication Patient is moving all 4 extremities neurologically intact and follows commands/ opens eyes when lightly sedated Hemodynamically remained stable but hypertensive sedation is decreased and hence the changes Bilateral breath sounds on assist control ventilation which she is tolerating very well with good PO2 FiO2 gradient Tolerating CPAP trials and will gradually wean toward extubation as long as patient is synchronized with the ventilator Patient should be extubated in the next day or 2 This patient had severe chest injuries and hence the caution with extubation as well as prolonged intubation and sedation caution with patient's age 1001/22/2018 Patient neurologically intact he is answering and following commands opening eyes Remains intubated ventilated Fentanyl decreased to comfortable levels and augmented by oxycodone via the tube DC propofol and started patient on Precedex which she is tolerating very well Hemodynamically stable and still quite hypertensive at to add additional antihypertensives as patient is waking up On Lopressor IV/Catapres patch/Procardia/Nitro-Dur patch Bilateral breath sounds remains on assist control ventilation and then with periods of CPAP which she is tolerating pretty well as long as sedation is adequate Unfortunately patient keeps desaturating and the chest x-ray reveals continuous airspace disease with diffuse infiltrates and areas of atelectasis Patient has been bronchoscoped which improved his function few days ago Clearly patient is not ready for extubation in the face of these changes he may end up requiring tracheostomy but will see next week Abdomen soft enteral feeds tolerated Renal function preserved 01/23/18 Awake and alert on Precedex gtt Tolerating CPAP since this AM Respiratory parameters sufficient and patient extubated A&Ox2 post-extubation 01/24/18 Awake and calm Reports left leg and rib pain On minimal IS volume = 1500mL OOB to chair today 01/25/18 Awake and more confused today. RN reported confusion coincided with Oxycodone administration- switched to [place]. On minimal O2, CXR shows persistent LLL consolidation CT removed at bedside Transfer to Med/Surg floor today 01/26/2018 Patient is awake alert and oriented On regular diet able to swallow Bilateral good breath sounds good inspiratory effort and patient is having productive cough Abdomen is soft active bowel sounds Renal function preserved I believe patient slightly volume overloaded and will require some diuresis Transfer to floor when bed available Objective Vital Signs / I&O: Vital Signs 01/25/18 16:00 01/25/18 20:00 01/25/18 20:37 Temperature 98.9 F 98.8 F Pulse Rate 90 94 H 100 H Respiratory Rate 24 26 H 27 H Blood Pressure 167/89 H 160/90 H 189/98 H Pulse Oximetry 91 L 94 L 96 01/25/18 20:38 01/25/18 21:00 01/25/18 22:00 Temperature Pulse Rate 98 H 94 H 79 Respiratory Rate 27 H 50 H 25 H Blood Pressure 161/82 H Pulse Oximetry 96 85 L 90 L 01/25/18 22:26 01/25/18 23:00 01/25/18 23:48 Temperature Pulse Rate 90 86 Respiratory Rate 27 H 24 25 H Blood Pressure 148/92 H Pulse Oximetry 92 L 93 L 01/26/18 00:00 01/26/18 00:26 01/26/18 01:00 Temperature 97.6 F Pulse Rate 84 89 91 H Respiratory Rate 25 H 27 H 25 H Blood Pressure 140/77 156/84 H Pulse Oximetry 94 L 93 L 92 L 01/26/18 02:00 01/26/18 02:26 01/26/18 02:30 Temperature Pulse Rate 89 92 H 91 H Respiratory Rate 26 H 27 H 25 H Blood Pressure 186/85 H 172/82 H Pulse Oximetry 91 L 92 L 93 L 01/26/18 02:51 01/26/18 03:00 01/26/18 04:00 Temperature 97.6 F Pulse Rate 94 H 90 95 H Respiratory Rate 26 H 24 35 H Blood Pressure 170/81 H 182/90 H Pulse Oximetry 94 L 92 L 93 L 01/26/18 04:11 01/26/18 05:00 01/26/18 06:00 Temperature Pulse Rate 96 H 89 98 H Respiratory Rate 30 H 23 46 H Blood Pressure 174/81 H 172/86 H Pulse Oximetry 93 L 94 L 89 L 01/26/18 06:09 01/26/18 07:00 01/26/18 07:44 Temperature Pulse Rate 99 H 91 H 95 H Respiratory Rate 25 H 23 26 H Blood Pressure 170/92 H 194/95 H 196/103 H Pulse Oximetry 95 94 L 97 01/26/18 07:47 01/26/18 08:00 01/26/18 08:24 Temperature 98.4 F Pulse Rate 95 H 94 H 88 Respiratory Rate 27 H 25 H 29 H Blood Pressure 210/100 H 205/105 H 190/96 H Pulse Oximetry 95 96 95 01/26/18 09:00 01/26/18 09:05 01/26/18 09:35 Temperature Pulse Rate 90 90 109 H Respiratory Rate 26 H 25 H 53 H Blood Pressure 200/100 H 201/106 H 165/76 H Pulse Oximetry 97 95 93 L 01/26/18 09:39 01/26/18 10:00 01/26/18 11:00 Temperature Pulse Rate 107 H 92 H 94 H Respiratory Rate 32 H 33 H 20 Blood Pressure 148/68 H 149/78 H 167/82 H Pulse Oximetry 92 L 92 L 92 L 01/26/18 12:00 01/26/18 12:11 01/26/18 13:00 Temperature 98.5 F Pulse Rate 89 90 95 H Respiratory Rate 31 H 29 H 46 H Blood Pressure 160/85 H 164/89 H Pulse Oximetry 92 L 91 L 94 L Intake & Output 01/25/18 01/26/18 01/26/18 18:59 06:59 18:59 Intake Total 240 / 240 Output Total 300 / 300 800 / 800 Balance -300 / -300 -560 / -560 Weight 107.1 kg Intake: Oral 240 / 240 Output: Urine 300 / 300 Urine Amount (Catheter) 800 / 800 Condom 800 / 800 Other: # Incontinent Voids 3 Date of Last Bowel Movement 01/25/18 01/26/18 01/26/18 # Bowel Movements 4 # Incontinent Bowel Movements 7 Result Diagrams: 01/26/18 03:34 01/26/18 03:34 Imaging: Impressions Chest X-Ray 01/26/18 00:00 CONCLUSION: Diffuse increased interstitial markings which may relate to pulmonary venous hypertension or mild edema. Increased density at the lateral left base related to consolidations/contusion or atelectasis. Disinhibition Score: 21.00 Aggression Score: 17.50 Lability Score: 14.00 Agitated Behavior Total Score: 18 Assessment and Plan Plan: INJURIES: RIGHT rib fxs (11, 12) LEFT rib fxs (3-9) LEFT RANDY/PTX BILAT pulmonary contusions Lumbar artery lac Open LEFT ankle fx w/ dislocation Open LEFT metatarsal fx w/ dislocation LEFT 2-4 metatarsal fxs PMHx: DM. HTN. HLD RIGHT rib fxs, LEFT rib fxs, LEFT RANDY/PTX, BILAT pulmonary contusions, respiratory failure following trauma Supportive care 01/16: Intubated 01/16: LEFT CT placement 01/19: Bronchoscopy 01/23: Extubated Agitated behavior scale BID DC CT today CXR in AM CXR shows persistent LLL consolidation Pulmonary toileting Scheduled and PRN Duo-nebs 01/19: Sputum cx + MRSA ?contaminate Observe off Abx, monitor for fevers ST for formal swallow eval- Pureed with thin liquids Pain control Bowel regimen OOB- PT and OT ordered Lumbar artery lac Supportive 01/16: Angiography with Gelfoam embolization of the lumbar artery, L2, L3 Hgb stable Open LEFT ankle fx w/ dislocation, Open LEFT metatarsal fx w/ dislocation, LEFT 2-4 metatarsal fxs Orthopedics consulted 01/17: I&D LEFT open talar dislocation (tibiotalar, talonavicular and talocalcaneal). I&D LEFT open first metatarsophalangeal fx and dislocation. I&D LEFT open 2nd metatarsal fx. Open reduction LEFT open talar dislocation. Open reduction LEFT open 1st metatarsophalangeal fx and dislocation. Ex-fix LEFT ankle and hindfoot Ortho waiting for swelling to reduce before definitive sx is done on LLE Pin care BID NWB LLE OOB-PT and OT ordered Pain control Bowel regimen HTN, HLD Lisinopril 20 mg QD Lopressor 25 mg BID Catapres 0.3mg patch Procardia 20mg BID Nitro patch 0.6mg QD Lipitor DM Accu checks AC, HS ADA diet Metformin Glipizide Transfer to Med/Surg today Plan of care discussed with patient and REHABILITATION MEDICINE PHYSICIAN at bedside. Collaborating Trauma surgeon agrees with plan. Case management consulted to assist with discharge planning. Attestation: Critical care time 32
[2018-01-26] MEDS: Metoprolol Tartrate 100 MG Tablet PO SCH (21:30)
--- NOTE | 2018-01-27 08:09 | P.PNNPSY ---
- Behavior Intact: Impulsive/agitated - Progress Notes/Response to Treatment Contents of Sessions: Adjustment, Level of consciousness Time with Patient: 30 minutes Premorbid Psychological Status: Premorbid Cognitive, Emotional and Behavioral Status: Tenuous. The patient has high school years of education and a questionable work history prior to this injury. The patient has unknown psychiatric difficulties, as described above. Substance abuse history is unknown. Behavioral Reactions of Patient and Family/Support System: Unable to Assess The patients family is experiencing ongoing issues of adjustment given the nature of the injury, and this aspect of recovery will require ongoing monitoring. Emotional/Behavioral Status of Patient and Family/Support System: Unable to Assess. Pertinent issues, if appropriate to this patients clinical care, are described in detail above. Maximizing Acute Care Outcome: It is recommended that the patient be monitored for emergent behavioral impulsivity as the medical condition evolves. This patients neuropathological challenges may limit rehabilitation potential going forward, and these challenges will require specialized therapeutic skills to maximize outcome. Additionally, the patients family is experiencing ongoing issues of adjustment given the traumatic nature of the injury, and they may benefit from ongoing psychological assistance. At this point in the recovery process, the patient does not have cognitive capacity as the patient is unable to understand a situation and its likely consequences, nor is the patient able to manipulate information rationally. Cognitive capacity will be assessed throughout the recovery process. Anticipated Problems: Ongoing areas of concern will include behavioral impulsivity, lack of insight and judgment, which is expected to improve with time and treatment. Treatment Plan: This clinician will continue to follow with you throughout the course of this patients critical care treatment, and I will be available to meet with the patients family/support system to facilitate their understanding and the ongoing care of their family member. The goals of neuropsychological intervention shall be both educational and supportive to the family/support system as is deemed clinically appropriate. Disinhibition Score: 15.75 Aggression Score: 14.00 Lability Score: 14.00 Agitated Behavior Total Score: 15 Impression: 68 year old male s/p possible concussion 2T [facility] [place] on 01/16/2018. Progress Note Narrative: PTD 11. The patient is awake, alert and oriented. No agitation/restlessness. ABS = 15 (15.8,14,14). He is ready for transfer to the floor. I will follow.
[2018-01-27] MEDS: glipiZIDE 5 MG Tablet PO SCH (09:03)
[2018-01-27] MEDS: Bisacodyl 10 MG Supp RECTAL SCH (09:07)
[2018-01-27] MEDS: Senna/Docusate Sodium 8.6/50 MG Tablet PO SCH ×2 (09:08→20:53)
[2018-01-27] MEDS: Lisinopril 20 MG Tablet PO SCH (09:08)
[2018-01-27] MEDS: Metoprolol Tartrate 100 MG Tablet PO SCH ×2 (09:08→20:53)
[2018-01-27] MEDS: Enoxaparin Inj 30 MG/0.3 ML Syringe SQ SCH ×2 (09:08→20:52)
[2018-01-27] MEDS: Famotidine PF Inj 20 MG/2 ML Vial IV.PUSH SCH ×2 (09:10→20:53)
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
[2018-01-28 04:19] LABS: Baso % (Auto) 0.4 % (0.0-2.0); Eos # (Auto) 0.2 th/mm3 (0.0-0.4); Eos % (Auto) 2.3 % (0.0-4.0); Hemoglobin 12.3 gm/dL (13.0-17.0); Lymph # (Auto) 1.3 th/mm3 (1.0-4.8); Lymph % (Auto) 13.7 % (9.0-44.0); Mean Corpuscular Hemoglobin 30.5 pg (27.0-34.0); Mean Corpuscular Volume 89.8 fL (80.0-100.0); Mean Platelet Volume 8.3 fL (7.0-11.0); Mono # (Auto) 0.8 th/mm3 (0.0-0.9); Mono % (Auto) 7.7 % (0.0-8.0); Neut # (Auto) 7.5 th/mm3 (1.8-7.7); Neut % (Auto) 75.9 % (16.0-70.0); Platelet Count 320 th/mm3 (150-450); Red Blood Count 4.01 mil/mm3 (4.50-5.90); Red Cell Distribution Width 14.9 % (11.6-17.2); White Blood Count 9.8 th/mm3 (4.0-11.0)
[2018-01-28 04:48] LABS: Anion Gap 7 meq/L (5-15); Blood Urea Nitrogen 28 mg/dL (7-18); Calcium 7.9 mg/dL (8.5-10.1); Carbon Dioxide 24.7 meq/L (21.0-32.0); Chloride 110 meq/L (98-107); Glomerular Filtration Rate Greater Than 89 mL/min (>89); Glucose,Random 105 mg/dL (74-106); Potassium 3.4 meq/L (3.5-5.1); Sodium 142 meq/L (136-145)
--- NOTE | 2018-01-28 07:02 | XR ---
EXAM DATE: 01/28/2018 6:56 AM EDT AGE/SEX: 68 years / Male INDICATIONS: Pain left chest, follow up trauma, left rib fractures, short of breath CLINICAL DATA: This is the patient's subsequent encounter. Patient reports that signs and symptoms h ave been present for 4 - 6 days and indicates a pain score of 5/10. MEDICAL/SURGICAL HISTORY: . left rib fractures, pneumothorax Chest tube, left. chest tube jeovanny gayle COMPARISON: C, CHEST 1V SINGLE AP, 01/26/2018. . FINDINGS: There is improved aeration of the right lung with mild residual infiltrate at the right medial lung b ase. Patchy consolidation in the left lower lobe is also noted and overall slightly decreased. Blunti ng of the left lateral costophrenic angle is noted. There are multiple left-sided rib fractures. I do not see a pneumothorax. Cardiomegaly. CONCLUSION: Improved aeration. Small left effusion. Electronically signed by: Willard London MD 01/28/2018 7:00 AM EDT
--- NOTE | 2018-01-28 08:42 | P.PNNPSY ---
- Behavior Intact: Impulsive/agitated - Cognitive Mild: Cognitive, Attention/concentration, Confused/orientation, Insight/ awareness, Judgment/problem solving, Memory - Psychosocial Intact: Psychosocial, Family/other adjustment, Realistic expectation - Progress Notes/Response to Treatment Contents of Sessions: Adjustment, Level of consciousness Time with Patient: 15 minutes Premorbid Psychological Status: Premorbid Cognitive, Emotional and Behavioral Status: Tenuous. The patient has high school years of education and a questionable work history prior to this injury. The patient has unknown psychiatric difficulties, as described above. Substance abuse history is unknown. Behavioral Reactions of Patient and Family/Support System: Unable to Assess The patients family is experiencing ongoing issues of adjustment given the nature of the injury, and this aspect of recovery will require ongoing monitoring. Emotional/Behavioral Status of Patient and Family/Support System: Unable to Assess. Pertinent issues, if appropriate to this patients clinical care, are described in detail above. Maximizing Acute Care Outcome: It is recommended that the patient be monitored for emergent behavioral impulsivity as the medical condition evolves. This patients neuropathological challenges may limit rehabilitation potential going forward, and these challenges will require specialized therapeutic skills to maximize outcome. Additionally, the patients family is experiencing ongoing issues of adjustment given the traumatic nature of the injury, and they may benefit from ongoing psychological assistance. At this point in the recovery process, the patient does not have cognitive capacity as the patient is unable to understand a situation and its likely consequences, nor is the patient able to manipulate information rationally. Cognitive capacity will be assessed throughout the recovery process. Anticipated Problems: Ongoing areas of concern will include behavioral impulsivity, lack of insight and judgment, which is expected to improve with time and treatment. Treatment Plan: This clinician will continue to follow with you throughout the course of this patients critical care treatment, and I will be available to meet with the patients family/support system to facilitate their understanding and the ongoing care of their family member. The goals of neuropsychological intervention shall be both educational and supportive to the family/support system as is deemed clinically appropriate. Disinhibition Score: 14.00 Aggression Score: 14.00 Lability Score: 14.00 Agitated Behavior Total Score: 14 Impression: 68 year old male s/p possible concussion 2T [facility] on 01/16/2018. Progress Note Narrative: PTD 13. The patient is transferred to the floor. No agitation/restlessness. He is A&Ox4. I will follow.
[2018-01-28] MEDS: Metoprolol Tartrate 100 MG Tablet PO SCH ×2 (09:39→20:29)
[2018-01-28] MEDS: Lisinopril 20 MG Tablet PO SCH (09:39)
[2018-01-28] MEDS: Famotidine PF Inj 20 MG/2 ML Vial IV.PUSH SCH (09:39)
[2018-01-28] MEDS: glipiZIDE 5 MG Tablet PO SCH (09:39)
[2018-01-28] MEDS: Senna/Docusate Sodium 8.6/50 MG Tablet PO SCH ×2 (09:39→20:29)
[2018-01-28] MEDS: Enoxaparin Inj 30 MG/0.3 ML Syringe SQ SCH ×2 (09:40→20:29)
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
--- NOTE | 2018-01-28 16:51 | P.DIET ---
Nutritional Evaluation Type of nutrition evaluation: follow-up Nutrition consult regarding: Tube Feeding Screening comments: Pt extubated and TFing d/c'ed on 01/23. [place]ive [place]ive Comments[place] [facility] [place] Tra[place] - Objective % IBW: 125 (IBW = 184#) Body Weight Used for Calculations: Actual (104.6 kg admission wt) Energy Needs - Lower Range (kCal/kg): 25 Energy Needs - Upper Range (kCal/kg): 30 Lower Limit kCal/kg (kCals): 2,615 Upper Limit kCal/kg (kCals): 3,138 Lower Limit Protein Factor (Grams per Kg): 1.2 Upper Limit Protein Factor (Grams per Kg): 1.5 Lower Protein Needs (Protein): 126 Upper Protein Needs (Protein): 157 Dietitian Reviewed in Medical Record: Current diet, Curent medications, Intake & Output, Labs, Medical history, Tube feeding Diet Order: 1800 ADA Assessment Assessment: Pt has been extubated and TF is d/c'ed. He is tolerating current diet and eating >50% with a BMI of 30.2. Labs, wts and clinical course reviewed. Recommend increase calorie level of diet to 2200 ADA. Recommendations: Increase diet to [address] if needed.
[2018-01-28] MEDS: Famotidine 20 MG Tablet PO SCH (20:29)
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
[2018-01-29] MEDS: glipiZIDE 5 MG Tablet PO SCH (08:34)
[2018-01-29] MEDS: Metoprolol Tartrate 100 MG Tablet PO SCH ×2 (08:34→20:55)
[2018-01-29] MEDS: Lisinopril 20 MG Tablet PO SCH (08:34)
[2018-01-29] MEDS: Senna/Docusate Sodium 8.6/50 MG Tablet PO SCH ×2 (08:34→20:55)
[2018-01-29] MEDS: Enoxaparin Inj 30 MG/0.3 ML Syringe SQ SCH ×2 (08:35→20:55)
[2018-01-29] MEDS: Famotidine 20 MG Tablet PO SCH ×2 (08:36→20:55)
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
[2018-01-30] MEDS: Morphine Sulfate Inj 2 MG/ML Vial IV.PUSH PRN ×2 (09:15→15:59)
[2018-01-30] MEDS: glipiZIDE 5 MG Tablet PO SCH (09:22)
[2018-01-30] MEDS: Senna/Docusate Sodium 8.6/50 MG Tablet PO SCH ×2 (09:22→22:13)
[2018-01-30] MEDS: Famotidine 20 MG Tablet PO SCH ×2 (09:22→22:13)
[2018-01-30] MEDS: Metoprolol Tartrate 100 MG Tablet PO SCH ×2 (09:22→22:13)
[2018-01-30] MEDS: Enoxaparin Inj 30 MG/0.3 ML Syringe SQ SCH ×2 (09:22→22:13)
[2018-01-30] MEDS: Lisinopril 20 MG Tablet PO SCH (09:22)
[2018-01-30 19:58] LABS: Creatine Kinase 36 U/L (39-308)
[2018-01-30] MEDS: Melatonin 5 MG Tablet PO PRN (23:51)
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
[2018-01-31] MEDS: Metoprolol Tartrate 100 MG Tablet PO SCH ×2 (08:27→21:34)
[2018-01-31] MEDS: glipiZIDE 5 MG Tablet PO SCH (08:28)
[2018-01-31] MEDS: Famotidine 20 MG Tablet PO SCH ×2 (08:28→21:35)
[2018-01-31] MEDS: Senna/Docusate Sodium 8.6/50 MG Tablet PO SCH ×2 (08:28→21:35)
[2018-01-31] MEDS: Lisinopril 20 MG Tablet PO SCH (08:28)
[2018-01-31] MEDS: Enoxaparin Inj 30 MG/0.3 ML Syringe SQ SCH (09:11)
--- NOTE | 2018-01-31 10:14 | XR ---
EXAM DATE: 01/31/2018 9:46 AM EDT AGE/SEX: 68 years / Male INDICATIONS: Follow up left ankle fracture dislocation. CLINICAL DATA: This is the patient's initial encounter. Patient reports that signs and symptoms have been present for 1 week and indicates a pain score of 8/10. MEDICAL/SURGICAL HISTORY: None. . ankle surgery COMPARISON: [facility] – [place], ANKLE COMPLETE LEFT MIN 3V, 01/16/2018. . FINDINGS: There is been reduction of the previously noted ankle fracture dislocation. There is mild widening of the medial ankle mortise. The oblique fracture through the distal fibula is again noted with mild la teral displacement of the distal fracture fragment approximately 9 mm. There is overlying soft tissue swelling. The talus appears intact. CONCLUSION: 1. Status post placement of external fixation device. 2. Reduction of the previously noted dislocation with mild widening of the medial ankle mortise. Electronically signed by: Ulises Ovalles MD 01/31/2018 10:12 AM EDT
--- NOTE | 2018-01-31 10:47 | XR ---
EXAM DATE: 01/31/2018 9:43 AM EDT AGE/SEX: 68 years / Male INDICATIONS: Follow up fracture. CLINICAL DATA: This is the patient's initial encounter. Patient reports that signs and symptoms have been present for 1 week and indicates a pain score of 8/10. MEDICAL/SURGICAL HISTORY: None. . left foot surgery COMPARISON: [facility] [place], [place] FOOT LEFT W/O CONTRAST, 01/17/2018. . FINDINGS: There are fractures of the second third and fourth metatarsal heads. There is a fracture base of the proximal phalanx great toe. Alignment is anatomic across the tarsometatarsal joint. Fractures of the cuboid and talus described on CT scan are not visualized on today's film. CONCLUSION: Fractures as above. Electronically signed by: Damir Liriano MD 01/31/2018 10:45 AM EDT
--- NOTE | 2018-01-31 18:17 | ECG ---
Date Performed: 01/30/2018 Time Performed: 16:23:23 PTAGE: 68 years EKG: Sinus rhythm NONSPECIFIC T-WAVE ABNORMALITY BORDERLINE ECG PREVIOUS TRACING : 01/17/2018 05.51 Since the previous tracing, no significant change noted DOCTOR: Isidoro Feliz Interpretating Date/Time 01/31/2018 18:15:42
[2018-01-31] MEDS: Melatonin 5 MG Tablet PO PRN (22:44)
[2018-02-01] MEDS ORDERED: Metoprolol Tartrate 25 MG Tablet PO ONE (05:01)
[2018-02-01] MEDS ORDERED: Chlorhexidine Gluconate 2% 1 Pack (2 Cloths) TOPICAL ONE (05:01)
[2018-02-01] MEDS ORDERED: Sodium Chlor 0.9% Inj 500 ML IV.SIG SCH (06:00)
--- NOTE | 2018-02-01 06:43 | P.PNOP ---
Subjective Interval history: Patient is awake. His is at bedside. He is comfortable with no complaints today. Physical Exam Vital signs: Vital Signs 01/31/18 08:00 01/31/18 12:00 01/31/18 16:00 Temperature 97.9 F 97.7 F 98.1 F Pulse Rate 69 80 78 Respiratory Rate 20 20 20 Blood Pressure 163/88 H 138/76 158/82 H Pulse Oximetry 96 97 95 01/31/18 20:00 02/01/18 00:00 Temperature 97.3 F L 97.8 F Pulse Rate 84 69 Respiratory Rate 18 18 Blood Pressure 160/84 H 137/77 Pulse Oximetry 97 94 L Intake & Output 01/31/18 01/31/18 02/01/18 06:59 18:59 06:59 Output Total 800 / 800 Balance -800 / -800 Output: Urine 800 / 800 Other: # Voids 1 # Bowel Movements 1 Narrative: Lore is awake and alert. Examination of left leg reveals no pain with hip or knee motion. He continues to have large fracture blisters around his ankle and foot. Pin sites are clean. He is tender palpation over the lateral ankle and calcaneus. There is no erythema or fluctuance. He has good capillary refill in his toes. He has diminished sensation in both feet. - Urinary Catheter Management Indwelling Urethral Catheter Cath placed during this visit: yes, but has since been removed by the nurse Reason for continuing: Decision to DC catheter Insertion date: 01/19/18 Removal date: 01/21/18 Removal time: 14:00 Condom Cath placed during this visit: no Results - Labs CBC & Chem 7: 01/28/18 04:06 01/28/18 04:06 Laboratory Results - last 24 hr 01/31/18 01/31/18 01/31/18 08:20 12:23 17:47 POC Glucose 117 H 127 H 91 02/01/18 00:46 POC Glucose 112 H - Imaging Impressions Ankle X-Ray 01/31/18 00:00 CONCLUSION: 1. Status post placement of external fixation device. 2. Reduction of the previously noted dislocation with mild widening of the medial ankle mortise. Foot X-Ray 01/31/18 00:00 CONCLUSION: Fractures as above. Assessment and Plan - Assessment and Plan 1) Left Ankle Fxs with Subtalar Dislocation 2) Left Metatarsal Fxs 3) Left Calcaneus Fracture 4) left fibula fracture -swelling too significant for surgery. fracture blisters are still present -will evaluate again next week for possible surgery -elevate foot -ice -maintain splint and exfix--strict nonweightbearing left leg -will keep re-evaluating and will plan for surgery if/when swelling appropriate -Patient understands that given his soft tissue and history of diabetes, we may treat his injuries definitively with an external fixator -Patient is cleared from orthopedic standpoint to be transferred to rehab
[2018-02-01] MEDS: glipiZIDE 5 MG Tablet PO SCH (07:28)
[2018-02-01] MEDS: Metoprolol Tartrate 100 MG Tablet PO SCH ×2 (09:06→20:14)
[2018-02-01] MEDS: Famotidine 20 MG Tablet PO SCH ×2 (09:06→20:14)
[2018-02-01] MEDS: Lisinopril 20 MG Tablet PO SCH (09:07)
[2018-02-01] MEDS: Senna/Docusate Sodium 8.6/50 MG Tablet PO SCH ×2 (09:07→20:15)
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
[2018-02-01] MEDS: Melatonin 5 MG Tablet PO PRN (22:14)
[2018-02-02] MEDS: glipiZIDE 5 MG Tablet PO SCH (08:01)
[2018-02-02] MEDS: Famotidine 20 MG Tablet PO SCH (08:01)
[2018-02-02] MEDS: Lisinopril 20 MG Tablet PO SCH (08:03)
[2018-02-02] MEDS: Metoprolol Tartrate 100 MG Tablet PO SCH (08:03)
[2018-02-02] MEDS: Senna/Docusate Sodium 8.6/50 MG Tablet PO SCH (08:05)
[2018-02-02 08:23] VITALS: BP 153/81; PULSE 74; RESP 17; TEMP 97.6; O2SAT 94
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
== END 2018-02-02 10:55 ==
LOC: NEPI 13:49 → N03 15:50 → EDBD 15:50 → N03 16:00 → N05 01-27 22:47
PROVIDERS: ADMIT Surgery Trauma Surgery; ATTEND Surgery Trauma Surgery
PROC: ORIFANK (2018-01-17 06:36)

== ENCOUNTER 2018-02-10 08:40 | Observation (INO) ==
[2018-02-10] MEDS ORDERED: Chlorhexidine Gluconate 2% 1 Pack (2 Cloths) TOPICAL ONE (09:45)
[2018-02-10] MEDS ORDERED: Sodium Chlor 0.9% Inj 500 ML IV.CONT ONE (09:45)
[2018-02-10] MEDS ORDERED: Metoprolol Tartrate 25 MG Tablet PO ONE (09:45)
[2018-02-10] MEDS ORDERED: Ketamine Inj 50 MG/5 ML Syringe IV.PUSH ONE (09:53)
[2018-02-10] MEDS ORDERED: fentaNYL Citrate Inj 100 MCG/2 ML Ampul ONE (09:53)
[2018-02-10] MEDS ORDERED: Famotidine PF Inj 20 MG/2 ML Vial ONE (09:54)
[2018-02-10] MEDS ORDERED: Phenylephrine/NS 1000 MCG/10ML Syringe IV.PUSH ONE (10:11)
[2018-02-10] MEDS ORDERED: Lidocaine PF 1% Inj 5 ML Syringe OTHER ONE (10:11)
[2018-02-10] MEDS ORDERED: ceFAZolin 2 GM Premix Inj 2 GM/50 ML PIGGYBACK IV.SIG ONE (10:17)
[2018-02-10] MEDS ORDERED: Post-op Orders (for Pharmacy) OTHER STA (11:12)
--- NOTE | 2018-02-10 11:24 | P.OP ---
- Preoperative Diagnosis (1) Fracture of left ankle, lateral malleolus Date of procedure: 02/10/18 Procedure: Removal of external fixation, open reduction internal fixation left fibula Anesthesia: GETA Surgeon: Bharat Reed MD Wine Fermenter: JEWELL Sinclair PA-C The surgical procedure was assisted by my physician project assistant. My P.A. presence was necessary throughout this case for the manipulation and positioning of the surgical extremity. My P.A. was assisting me throughout the duration of this procedure. The skill set of a physician project assistant was medically necessary to complete this procedure. During the surgical case the operating room surgical technologist was working at the back table and the physician project assistant was directly assisting me. Operation and Findings: Implants used : Synthes Plan of activity: Nonweightbearing left leg Details of procedure: Patient was seen and evaluated preoperatively and found to have a displaced left ankle fracture. Patient was initially treated with closed reduction and external fixation. Patient has had delay in treatment for open reduction internal fixation secondary to soft tissue swelling and open lacerations. He was seen and evaluated preoperatively and soft tissue appears to be amenable to surgery at this time. Informed consent was obtained after a detailed discussion of risk and benefits of surgery. The operative site was marked. Patient was brought to the OR, placed on the OR table, and given IV sedation and general endotracheal anesthesia. IV antibiotics were given preoperatively. A timeout procedure was performed. The operative leg was prepped with alcohol followed by Hibiclens and draped in the usual sterile fashion. Attention was turned towards the distal fibula. A four-inch incision was made over the distal fibula. The subcutaneous tissue was dissected with Bovie. The fracture site was visualized. The fracture site was cleaned with curets. The fracture was mobilized. The fracture was now reduced. The fracture keyed into anatomic alignment. K-wires were used to hold provisional fixation. A plate was selected and contoured to fit the distal fibula. The plate was provisionally held to bone with K-wires. 3.5 cortical screws were used to compress the plate to bone. Multiple screws were placed above and below the fracture. Next, attention was turned to the syndesmosis. The syndesmosis was stressed. There was no widening of the syndesmosis with external rotation of the ankle. Incisions were thoroughly irrigated. The subcutaneous tissue was closed with 3- 0 Vicryl and the skin was closed with 3-0 nylon. Sterile dressings were applied. A well molded well-padded splint was applied. The patient was transferred to Recovery in stable condition. Needle and sponge counts were correct.
[2018-02-10] MEDS ORDERED: *Meperidine Inj 25 MG/ML Vial PERIprocedural Use ONLY ONE (11:47)
[2018-02-10] MEDS ORDERED: *HYDROmorphone PF Inj 1 MG/ML Ampul PERIprocedural Use ONLY ONE ×3 (11:54→12:31)
--- NOTE | 2018-02-10 12:29 | XR ---
EXAM DATE: 02/10/2018 12:13 PM EST AGE/SEX: 68 years / Male INDICATIONS: Low oxygen saturation post surgery. CLINICAL DATA: This is the patient's initial encounter. Patient reports that signs and symptoms have been present for 1 day and indicates a pain score of 5/10. MEDICAL/SURGICAL HISTORY: None. . Ankle surgery. COMPARISON: [facility] [place]ST 1V SINGLE AP, 01/28/2018. . FINDINGS: Single AP view of the chest. Patchy opacity left lung base decreased from the prior study. Surgical c lips in the right axilla. Right lung clear. Cardiomediastinal silhouette unchanged. CONCLUSION: Patchy atelectasis versus mild consolidation at the left lung base decreased when compared to the meri or study of 01/28/2018. Electronically signed by: Emir Dawson MD 02/10/2018 12:28 PM EST
[2018-02-10] MEDS: Calcium/Vitamin D 250/125 MG Tablet PO SCH ×2 (13:00→18:00)
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
[2018-02-10] MEDS ORDERED: Bisacodyl 10 MG Supp RECTAL PRN (13:25)
--- NOTE | 2018-02-10 15:14 | XR ---
EXAM DATE: 02/10/2018 3:07 PM EST AGE/SEX: 68 years / Male INDICATIONS: Orif left ankle. CLINICAL DATA: This is the patient's subsequent encounter. Patient reports that signs and symptoms h ave been present for 4 - 6 days and indicates a pain score of Nonresponsive. MEDICAL/SURGICAL HISTORY: None. . Ankle surgery. COMPARISON: [facility] – [place], ANKLE LIMITED LEFT 2V, 01/17/2018. . FINDINGS: 3 intraoperative spot images of the left ankle. Lateral internal fixation plate and multiple transfix ing screws across distal fibular fracture. Bone alignment within normal limits. CONCLUSION: Internal fixation hardware in the distal fibula across fracture. Electronically signed by: Emir Dawson MD 02/10/2018 3:13 PM EST
[2018-02-10] MEDS: ceFAZolin 2 GM Premix Inj 2 GM/50 ML PIGGYBACK IV.SIG SCH (18:00)
[2018-02-10] MEDS: Senna/Docusate Sodium 8.6/50 MG Tablet PO SCH (20:17)
[2018-02-10] MEDS: Metoprolol Tartrate 25 MG Tablet PO SCH (20:17)
[2018-02-10] MEDS ORDERED: traZODone 50 MG Tablet PO SCH (21:00)
[2018-02-10] MEDS ORDERED: Rivaroxaban 10 MG Tablet PO SCH (23:00)
[2018-02-11] MEDS: ceFAZolin 2 GM Premix Inj 2 GM/50 ML PIGGYBACK IV.SIG SCH ×2 (04:26→10:19)
--- NOTE | 2018-02-11 08:04 | P.PNOP ---
Subjective Interval history: Doing well status post surgery POD 1 Physical Exam Vital signs: Vital Signs 02/10/18 09:10 02/10/18 11:41 02/10/18 11:45 Temperature 97.9 F 97.8 F Pulse Rate 75 84 86 Respiratory Rate 18 16 16 Blood Pressure 97/57 L 138/105 H 151/77 H Pulse Oximetry 95 100 98 02/10/18 12:00 02/10/18 12:15 02/10/18 12:30 Temperature Pulse Rate 80 82 84 Respiratory Rate 16 16 16 Blood Pressure 130/71 131/76 135/70 Pulse Oximetry 97 98 97 02/10/18 12:45 02/10/18 13:00 02/10/18 17:00 Temperature 97.0 F L Pulse Rate 82 86 86 Respiratory Rate 16 16 16 Blood Pressure 99/60 L 120/71 122/69 Pulse Oximetry 95 96 97 02/10/18 20:00 02/11/18 00:00 02/11/18 04:00 Temperature 98.5 F 98.4 F 98.3 F Pulse Rate 79 74 80 Respiratory Rate 18 17 18 Blood Pressure 146/77 H 120/68 102/53 L Pulse Oximetry 100 97 96 Intake & Output 02/10/18 02/11/18 02/11/18 18:59 06:59 18:59 Intake Total 1250 / 1250 100 / 100 Output Total 30 30 625 / 625 Balance 1220 / 1220 -525 / -525 Weight 96.7 kg 96.7 kg Intake: IV 50 / 50 100 / 100 Ancef 2 GM Premix Inj 2 gm In 50 / 50 100 / 100 50 ml @ 200 mls/hr IV.SIG Q8H [facility] Rx#:[id number] Anesthesia Amount 1200 / 1200 Output: Urine 625 / 625 Estimated Blood Loss 30 30 Other: Date of Last Bowel Movement 02/09/18 Weight On Admission 96.7 kg Narrative: Left lower extremity: Clean dry dressings intact. Intact sensation in toes. Splint in good repair Results - Labs Laboratory Results - last 24 hr 02/10/18 12:17 POC Glucose 134 H - Imaging Impressions Ankle X-Ray 02/10/18 00:00 CONCLUSION: Internal fixation hardware in the distal fibula across fracture. Chest X-Ray 02/10/18 00:00 CONCLUSION: Patchy atelectasis versus mild consolidation at the left lung base decreased when compared to the prior study of 01/28/2018. Assessment and Plan - Assessment and Plan ORIF left distal fibula with removal external fixation POD 1 All surgeries are complete at this time for the left ankle and foot. Maintain splint Nonweightbearing left lower extremity Elevate to decrease swelling DME orders are placed for 3 in 1 commode and wheelchair with elevated leg rest Plan for possible discharge today if doing well with physical therapy Operative appointment with Dr. Reed or NORBERTO in 2 weeks Pain medications on chart
[2018-02-11] MEDS: Senna/Docusate Sodium 8.6/50 MG Tablet PO SCH (08:24)
[2018-02-11] MEDS: Calcium/Vitamin D 250/125 MG Tablet PO SCH ×2 (08:24→12:18)
[2018-02-11] MEDS: Metoprolol Tartrate 25 MG Tablet PO SCH (08:24)
[2018-02-11] MEDS ORDERED: Multivitamin/Minerals Therapeutic Tablet PO SCH (09:00)
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
[2018-02-11 12:54] VITALS: BP 102/55; PULSE 78; RESP 18; TEMP 98.2; O2SAT 97
--- NOTE | 2018-02-17 19:37 | MP ---
cc: Cj Lui MD DATE OF OPERATION: 02/17/2018 PREOPERATIVE DIAGNOSIS: Respiratory failure. POSTOPERATIVE DIAGNOSIS: Respiratory failure. PROCEDURE PERFORMED: Bronchoscopy lavage SURGEON: jC Lui MD. ANESTHESIA: Sedation. ESTIMATED BLOOD LOSS: None. DESCRIPTION OF PROCEDURE: The patient prepared, the bronchoscope inserted through the endotracheal tube, and into the right main stem bronchus. Large amount of mucus material was obtained. Now, the bronchial tree is lavaged, same is done with the left side. The bronchoscope was advanced through the third generation operation of the bronchi and then withdrawn. The patient tolerated the procedure well. MD LOUISE Garcia/em , 06:51 PM , 06:56 PM
== END 2018-02-11 15:15 | disposition home or self-care (01) ==
LOC: HSDC 08:40 → HSDI 08:40 → N06 13:48
PROVIDERS: ADMIT Orthopaedic Surgery Orthopaedic Trauma; ATTEND Orthopaedic Surgery Orthopaedic Trauma
PROC: ORIFANK (2018-02-10 10:11)